=== PATIENT | male | born 1930 | race Asian ===

== ENCOUNTER 2020-09-10 14:28 | Inpatient (IN) | payer MEDICARE, MEDICAID ==
[2020-09-10] VITALS (20 sets, daily range): BP systolic 67–168; BP diastolic 40–86
[~2020-09-10] VITALS: Ht 172.7 cm; Wt 76.0 kg
--- NOTE | 2020-09-10 14:30 | NUR ---
ED Nurse Note: Pt BIBA RA61 from [facility] due to SOB and desaturation. Per EMS, pt was desatting 78% RA, placed on NRB 15L, O2 went up to 92%. Noted with labored breathing. AAOx1, non verbal but is responsive to painful stimuli. Pt is warm to touch. Isolation precaution observed. Pt placed on panel monitor. ERMD at bedside.
--- NOTE | 2020-09-10 14:32 | NUR ---
ED Nurse Note: IV line established. Blood and Covid swab collected, sent to lab.
--- NOTE | 2020-09-10 14:35 | NUR ---
ED Nurse Note: FC 16fr inserted as ordered, patent and draining well.
--- NOTE | 2020-09-10 14:42 | NUR ---
ED Nurse Note: Etomidate 20mg IVP and Rocuronium 100mg IV given per ERMD. BP 92/45 HR 60 RR 33 O2 89% 1443: intubation time Vent setting: Rate:14, TV 500, FiO2 100%, PEEP 5
--- NOTE | 2020-09-10 14:43 | NUR ---
RESPIRATORY NOTE: PT DESMOND IN DUE TO RESPIRATORY DISTRESS. PT WAS INTUBATED AT THIS TIME WITH NO COMPLICATIONS. ETT #7.5 @ 24CM LIPLINE. VENT SETTINGS: AC/VC 14,500,100%,+5. ALARMS ARE ON AND AUDIBLE. PT IS TOLERATING VENT SETTINGS WELL. WILL CONTINUE TO CLOSELY MONITOR. ABG TO FOLLOW.
[2020-09-10] MEDS ORDERED: Levophed 4mg/4mL Inj IV ONE ×2 (14:44→15:04)
[2020-09-10] MEDS ORDERED: Acetaminophen 650 MG SUPP RECTAL ONE ×2 (14:45→14:54)
[2020-09-10] MEDS ORDERED: Piperacillin/Tazobactam 3.375 GM in NS 110 ML IV ONE (14:45)
[2020-09-10] MEDS ORDERED: dexAMETHasone 10mg/ml Inj IV ONE (14:45)
[2020-09-10] MEDS ORDERED: Etomidate 40mg/20ml Inj IV ONE ×2 (14:45→21:51)
[2020-09-10] MEDS ORDERED: Vancomycin 1 GM in NS 275 ML IVPB ONE (14:45)
[2020-09-10 14:54] LABS: BASOPHILS % (AUTO) 1.7 % (0.0-2.0); EOSINOPHILS % (AUTO) 0.6 % (0.0-3.0); HEMATOCRIT 41.8 % (42.0-52.0); HEMOGLOBIN 13.5 G/DL (14.2-18.0); LYMPHOCYTES % (AUTO) 17.3 % (20.0-45.0); MEAN CORPUSCULAR VOLUME 89 FL (80-99); NEUTROPHILS % (AUTO) 72.4 % (45.0-75.0); PLATELET COUNT 214 K/UL (150-450); RED BLOOD COUNT 4.69 M/UL (4.70-6.10); RED CELL DISTRIBUTION WIDTH 13.7 % (11.6-14.8); WHITE BLOOD COUNT 10.8 K/UL (4.8-10.8)
[2020-09-10 15:00] LABS: INR 1.1 (0.9-1.1)
--- NOTE | 2020-09-10 15:00 | NUR ---
ED Nurse Note: Levophed 8mcg/min started as ordered.
[2020-09-10 15:12] LABS: CREATININE 1.4 MG/DL (0.55-1.30); POTASSIUM 4.6 MMOL/L (3.5-5.1)
--- NOTE | 2020-09-10 15:15 | Emergency Room Report ---
History of Present Illness General Chief Complaint: Dyspnea/Respdistress Source: EMS Present Illness HPI Disclaimer: Please note that this report is being documented using DRAGON technology. This can lead to erroneous entry secondary to incorrect interpretation by the dictating instrument. HPI: 89-year-old male reported history of COPD, hypertension, heart failure status post pacemaker presents for evaluation of hypotension and respiratory distress. Found hypoxic nursing facility saturating in the 80s only improved to low 90s on nonrebreather. EMS noted blood pressures systolics in the high 80s. Patient is not responsive. Report this is not his typical mentation. No other information available from EMS. Cannot obtain any information from patient at this time due to clinical condition. PMH: COPD, asthma, hypertension, heart failure PSH: Pacemaker Allergies: Amiodarone, levofloxacin, penicillins listed in medical chart Social Hx: Unable to obtain Allergies: Coded Allergies: AMIODARONE (Verified Allergy, Unknown, 09/10/20) LEVOFLOXACIN (Verified Allergy, Unknown, 09/10/20) PENICILLINS (Verified Allergy, Unknown, 09/10/20) COVID-19 Screening Contact w/high risk pt: No Experienced COVID-19 symptoms?: Yes COVID-19 Testing performed FIREARMS INSPECTOR: Yes - no documentation COVID-19 Screening: PUI COVID-19 COVID-19 Testing Source: unknown Nursing Documentation-PMH Hx Cardiac Problems: Yes - sepsis, pneumonia, UTI, a-fib,hypothyroidism, CHF Hx Hypertension: Yes Hx Pacemaker: Yes - 2'tachy vaughn syndrome Hx Asthma: Yes Hx COPD: Yes Review of Systems All Other Systems: limited - Unable to obtain from patient due to clinical condition Physical Exam Vital Signs Date Time Temp Pulse Resp B/P (MAP) Pulse Ox O2 Delivery O2 Flow Rate FiO2 09/10/20 14:28 60 28 85/45 (58) 92 Non-Rebreather 15.0 General: No verbal response, arrives on nonrebreather HEENT: NC/AT. EOMI. edentulous Cardiovascular: RRR. S1 and S2 normal. No murmur appreciated Resp: Tachypneic and shallow breathing, agonal breaths, 15 L nonrebreather 92% Abdomen: Abdomen is soft, nondistended. Nontender Skin: Intact. No abrasions, laceration or rash over the exposed skin MSK: Normal tone and bulk. Moving all extremities. No obvious deformity. Neuro: Obtunded, no verbal response Procedures Intubation Intubation : Consent: Emergent Intubation Method: orotracheal Tube Size (cm): 7.5 Medications: Etomidate, Rocuronium Breath Sounds after Intubation: equal Intubation Complications: no complications Post Intubation Xray: Yes Attempts: One Patient Tolerated: Well Complications: None Medical Decision Making Diagnostic Impression: Primary Impression: Respiratory failure Additional Impressions: UTI (urinary tract infection) Elevated troponin Elevated d-dimer Pneumonia ER Course 89-year-old male presents in respiratory distress hypotension from snf facility. He is full code according to bolus provided by EMS. Patient was borderline hypotensive and concern for impending respiratory failure the patient was intubated shortly after arrival. Saturations improved. Patient started on Levophed drip. Full sepsis labs ordered as well as 30 cc/kg bolus, broad-spectrum antibiotics. Patient felt warm to the touch and Tylenol was given. Blood culture sent. He will require admission to the ICU. Accepted by Dr. Desai who is the assigned hospitalist for [facility]. Sepsis reevaluation: 1430 I, Dr. Darryl Song, reevaluated the patient MAP: 50 Heart rate: 60 Respiratory rate: 30s Initial Lactate: Pending Repeat Lactate: Pending Pressors: Peripheral levophed No signs of fluid overload Sepsis reevaluation: 1540 I, Dr. Darryl Song, reevaluated the patient Capillary refill: Less than 2 seconds MAP: 102 Heart rate: 60 Respiratory rate: 20, intubated Initial Lactate: 1.9 Repeat Lactate: [] Pressors: Discontinued No signs of fluid overload Laboratory Tests Test 09/10/20 14:32 09/10/20 15:10 White Blood Count 10.8 K/UL (4.8-10.8) Red Blood Count 4.69 M/UL (4.70-6.10) L Hemoglobin 13.5 G/DL (14.2-18.0) L Hematocrit 41.8 % (42.0-52.0) L Mean Corpuscular Volume 89 FL (80-99) Mean Corpuscular Hemoglobin 28.8 PG (27.0-31.0) Mean Corpuscular Hemoglobin Concent 32.2 G/DL (32.0-36.0) Red Cell Distribution Width 13.7 % (11.6-14.8) Platelet Count 214 K/UL (150-450) Mean Platelet Volume 5.8 FL (6.5-10.1) L Neutrophils (%) (Auto) 72.4 % (45.0-75.0) Lymphocytes (%) (Auto) 17.3 % (20.0-45.0) L Monocytes (%) (Auto) 8.0 % (1.0-10.0) Eosinophils (%) (Auto) 0.6 % (0.0-3.0) Basophils (%) (Auto) 1.7 % (0.0-2.0) Prothrombin Time 12.0 SEC (9.30-11.50) H Prothrombin Time INR 1.1 (0.9-1.1) Activated Partial Thromboplast Time 28 SEC (23-33) D-Dimer 4.12 mg/L FEU (0.00-0.49) H Sodium Level 146 MMOL/L (136-145) H Potassium Level 4.6 MMOL/L (3.5-5.1) Chloride Level 109 MMOL/L (98-107) H Carbon Dioxide Level 34 MMOL/L (21-32) H Anion Gap 3 mmol/L (5-15) L Blood Urea Nitrogen 36 mg/dL (7-18) H Creatinine 1.4 MG/DL (0.55-1.30) H Estimated Glomerular Filtration Rate 47.9 mL/min (>60) Glucose Level 235 MG/DL (74-106) H Lactic Acid Level 1.90 mmol/L (0.4-2.0) Calcium Level 8.0 MG/DL (8.5-10.1) L Phosphorus Level 4.8 MG/DL (2.5-4.9) Magnesium Level 2.5 MG/DL (1.8-2.4) H Ferritin 95 NG/ML (8-388) Total Bilirubin 0.3 MG/DL (0.2-1.0) Aspartate Amino Transferase (AST) 27 U/L (15-37) Alanine Aminotransferase (ALT) 7 U/L (12-78) L Alkaline Phosphatase 74 U/L (46-116) Lactate Dehydrogenase 233 U/L (81-234) Total Creatine Kinase 1477 U/L (26-308) H Creatine Kinase MB 2.2 NG/ML (0.0-3.6) Creatine Kinase MB Relative Index 0.1 Troponin I 0.057 ng/mL (0.000-0.056) C-Reactive Protein, Quantitative 1.3 mg/dL (0.00-0.90) H Pro-B-Type Natriuretic Peptide 2107 pg/mL (0-125) H Total Protein 7.0 G/DL (6.4-8.2) Albumin 2.5 G/DL (3.4-5.0) L Globulin 4.5 g/dL Albumin/Globulin Ratio 0.6 (1.0-2.7) L Lipase 258 U/L (73-393) Urine Color Yellow Urine Appearance Slightly cloudy Urine pH 7 (4.5-8.0) Urine Specific [place] 1.010 (1.005-1.035) Urine Protein Negative (NEGATIVE) Urine Glucose (UA) Negative (NEGATIVE) Urine Ketones Negative (NEGATIVE) Urine Blood 4+ (NEGATIVE) H Urine Nitrite Positive (NEGATIVE) H Urine Bilirubin Negative (NEGATIVE) Urine Urobilinogen Normal MG/DL (0.0-1.0) Urine Leukocyte Esterase 3+ (NEGATIVE) H Urine RBC Tntc /HPF (0 - 0) H Urine WBC 30-40 /HPF (0 - 0) H Urine Squamous Epithelial Cells Few /LPF (NONE/OCC) Urine Bacteria Few /HPF (NONE) Arterial Blood pH 7.368 (7.350-7.450) Arterial Blood Partial Pressure CO2 49.2 mmHg (35.0-45.0) H Arterial Blood Partial Pressure O2 448.6 mmHg (75.0-100.0) H Arterial Blood HCO3 27.7 mmol/L (22.0-26.0) H Arterial Blood Oxygen Saturation 99.4 % (95-100) Arterial Blood Base Excess 1.7 (-2-2) Galileo Test Positive Microbiology Date/Time Source Procedure Growth Status 09/10/20 14:32 Nasopharynx SARS-CoV-2 RdRp Gene Assay - Final Complete EKG Diagnostic Results Troponin ordered: Yes When was troponin ordered?: Sep 10, 2020 Rate: normal Other Impression Indeterminate rhythm, prolonged OK interval 298 ms, widened QTC, no obvious ST segment changes Rhythm Strip Diag. Results Rhythm Strip Time: 14:59 EP Interpretation: yes Rate: 70s Rhythm: no PVC's, no ectopy Chest X-Ray Diagnostic Results Chest X-Ray Diagnostic Results : Chest X-Ray Ordered: Yes # of Views/Limited/Complete: 1 View Indication: Shortness of Breath Interpretation: other - Endotracheal tube satisfactory position above the gorge. Possible left lower lobe infiltrate Impression: Other - Appropriate intubation, possible infiltrate left lower lobe Electronically Signed by: Electronically signed by Dr. Darryl Song Last Vital Signs Date Time Temp Pulse Resp B/P (MAP) Pulse Ox O2 Delivery O2 Flow Rate FiO2 09/10/20 15:05 163/78 09/10/20 14:28 60 28 92 Non-Rebreather 15.0 Disposition: ADMITTED INPATIENT Condition: Critical Referrals: NON PHYSICIAN (PCP) Darryl Song MD Sep 10, 2020 15:15
--- NOTE | 2020-09-10 15:15 | NUR ---
ED Nurse Note: BP 168/79, MD aware. Levophed titrated to 4mcg/min as ordered.
--- NOTE | 2020-09-10 15:20 | NUR ---
ED Nurse Note: BP 179/76, MD aware. Levophed 4mcg/ min dc as ordered.
--- NOTE | 2020-09-10 15:22 | NUR ---
ED Nurse Note: Levophed 212.5ml discarded. Witnessed by charge nurse.
[2020-09-10 15:30] LABS: ALBUMIN 2.5 G/DL (3.4-5.0); ALBUMIN/GLOBULIN RATIO 0.6 (1.0-2.7); BILIRUBIN,TOTAL 0.3 MG/DL (0.2-1.0); CKMB 2.2 NG/ML (0.0-3.6); PHOSPHORUS 4.8 MG/DL (2.5-4.9)
[2020-09-10] MEDS ORDERED: Cefepime HCl 1 GM in D5W 55 ML IVPB ONE (15:30)
[2020-09-10 15:37] LABS: APPEARANCE,URINE SLIGHTLY CLOUDY; BILIRUBIN, URINE NEGATIVE (NEGATIVE); GLUCOSE, URINE (UA) NEGATIVE (NEGATIVE); KETONES,URINE NEGATIVE (NEGATIVE); LEUKOCYTE ESTERASE ,URINE 3+ (NEGATIVE); NITRITE,URINE POSITIVE (NEGATIVE); PH,URINE 7 (4.5-8.0); PROTEIN,URINE NEGATIVE (NEGATIVE); UROBILINOGEN,URINE NORMAL MG/DL (0.0-1.0)
[2020-09-10 15:42] LABS: COLOR,URINE YELLOW
--- NOTE | 2020-09-10 17:03 | NUR ---
ED Nurse Note: Skin assessment initiated, noted with hematoma on left forearm, hematoma and closed wound with dry scab on right forearm.
[2020-09-10] MEDS ORDERED: Vancomycin 500mg/D5W 100ml IVPB SCH ×2 (18:00)
--- NOTE | 2020-09-10 18:35 | NUR ---
ED Nurse Note: Report given to Daylin charge nurse
--- NOTE | 2020-09-10 19:55 | NUR ---
ED Nurse Note: Report given to Estrella OSHEA
[2020-09-10] MEDS ORDERED: FLOMAX0.4 MG ORAL (20:02)
[2020-09-10] MEDS ORDERED: METOPROLOL SUCC25 MG ORAL (20:02)
[2020-09-10] MEDS ORDERED: DOCUSIL100 M1 ORAL (20:02)
[2020-09-10] MEDS ORDERED: VITAMIN B122500 MCG PO (20:02)
[2020-09-10] MEDS ORDERED: LIPOIC ACID1 GM MC (20:02)
[2020-09-10] MEDS ORDERED: FLECAINIDE ACE100 MG ORAL (20:02)
[2020-09-10] MEDS ORDERED: CATAPRES0.1 MG ORAL (20:02)
[2020-09-10] MEDS ORDERED: SINGULAIR10 MG ORAL (20:02)
[2020-09-10] MEDS ORDERED: NAMENDA5 MG ORAL (20:02)
[2020-09-10] MEDS ORDERED: SYNTHROID88 MCG ORAL (20:02)
[2020-09-10] MEDS ORDERED: ELIQUIS5 MG ORAL (20:02)
[2020-09-10] MEDS ORDERED: BUMETANIDE0.5 MG ORAL (20:02)
--- NOTE | 2020-09-10 20:10 | NUR ---
TRANSFER TO FLOOR: Patient transferred to ICU. Report given to Estrella OSHEA. Pt AAOx1, on mech vent tolerating well. Pt is on / NS 1L @100ml/hr. IV line on right AC 20g and left hand 22g patent and intact. Skin issues documented. Swabs are sent. Pt does not have any belongings.
--- NOTE | 2020-09-10 20:20 | NUR ---
NURSE NOTES: Received patient from ER via gurney accompanied by CUSTOMER QUALITY SPECIALIST and data collection technician. patient orally intubated fi02 50% satting 100%.patient admitted under the care of Dr. Desai with admitting diagnosis of Respiratory failure. Patient unable to responds and follow command. body assessment done patient with bilateral arms hematoma with closed blood blister and bilateral heel DTI. edema on bilateral lower extremities +1 elevated with pillow. Howe draining. initial wound care provided. IV line intact no s/s of infiltration infusing 1/2 ns at 100CC/hr. Covid-19 negative. standard precaution maintained and observed. Temp 97.3 axillary, placed frances hugger. will recheck Temp and BP sbp 70's. bilateral leg with +1 pitting edema.bed alarm on. bed locked and in low position. will continue plan of care. Dr. Desai placed an order.
--- NOTE | 2020-09-10 20:33 | NUR ---
NURSE NOTES: Called Dr. Desai and left message regrading pt blood pressure on the 70's HR 105, right now BP 85/53 HR 106, Temp 97.2 resp 14 Levophed was D/C in the ER. will follow up.
[2020-09-10] MEDS ORDERED: Enoxaparin 100mg Inj SUBQ SCH (21:00)
--- NOTE | 2020-09-10 21:27 | NUR ---
NURSE NOTES: Called Dr. Desai regarding patient Low BP. will follow up.
--- NOTE | 2020-09-10 21:30 | NUR ---
NURSE NOTES: Called patient daughter Lisa Heller and left message regarding patient admitted in ICU.
--- NOTE | 2020-09-10 21:34 | NUR ---
NURSE NOTES: Dr. Desia called back and gave orders noted and carried out.
--- NOTE | 2020-09-10 21:40 | NUR ---
NURSE NOTES: NS 500cc bolus x1 given will rechecked BP
[2020-09-10] MEDS ORDERED: Rocuronium Bromide 50mg/5ml Inj IV ONE (21:51)
[2020-09-10] MEDS: Heparin 5000 units/ml inj SUBQ SCH ×2 (22:00→22:15)
--- NOTE | 2020-09-10 22:00 | NUR ---
NURSE NOTES: Rechecked BP 120/89 HR 107 A-paced. no s/s of acute distress noted. frequent visual checks continued. will continue plan of care.
[2020-09-11] VITALS (31 sets, daily range): BP systolic 99–130; BP diastolic 47–83
--- NOTE | 2020-09-11 | NUR ---
NURSE NOTES: Patient BP 142/70 HR 79. Full code. no s/s of acute distress noted. no fever. no diarrhea. no/v. turned and repositioned patient in bed.
--- NOTE | 2020-09-11 02:00 | NUR ---
NURSE NOTES: patient in bed with eyes open, unable to follow direction. Temp 96.0 axillary with frances hugger will recheck Temp. turned and repositioned in bed. no s/s of hypo/hyperglycemia, no n/v. no diarrhea. frequent visual checks continued.
[2020-09-11] MEDS: Cefepime HCl 1 GM in D5W 55 ML IVPB SCH ×2 (03:47→17:48)
--- NOTE | 2020-09-11 04:00 | NUR ---
NURSE NOTES: Bed bath given. BP 107/46 HR 60. bilateral legs elevated.no s/s of acute distress noted. will continue plan of care.
[2020-09-11 05:10] LABS: BASOPHILS % (AUTO) 3.6 % (0.0-2.0); HEMOGLOBIN 12.9 G/DL (14.2-18.0); MEAN CORPUSCULAR VOLUME 88 FL (80-99); MONOCYTES % (AUTO) 5.4 % (1.0-10.0); PLATELET COUNT 143 K/UL (150-450); RED BLOOD COUNT 4.44 M/UL (4.70-6.10); RED CELL DISTRIBUTION WIDTH 13.6 % (11.6-14.8); WHITE BLOOD COUNT 15.6 K/UL (4.8-10.8)
[2020-09-11 05:45] LABS: ALANINE AMINOTRANSFERASE 6 U/L (12-78); ALBUMIN/GLOBULIN RATIO 0.6 (1.0-2.7); ALKALINE PHOSPHATASE 59 U/L (46-116); ASPARTATE AMINO TRANSFERASE 22 U/L (15-37); BILIRUBIN,TOTAL 0.5 MG/DL (0.2-1.0); BLOOD UREA NITROGEN 28 mg/dL (7-18); CALCIUM 7.2 MG/DL (8.5-10.1); CHLORIDE 112 MMOL/L (98-107); SODIUM 143 MMOL/L (136-145)
[2020-09-11] MEDS: Heparin 5000 units/ml inj SUBQ SCH ×3 (05:47→21:42)
[2020-09-11 05:51] LABS: CARBON DIOXIDE 23 MMOL/L (21-32)
--- NOTE | 2020-09-11 06:00 | NUR ---
NURSE NOTES: patient orally intubated fi02 50% satting 100%. Patient unable to responds and follow command. body assessment done patient with bilateral arms hematoma with closed blood blister and bilateral heel DTI. edema on bilateral lower extremities +1 elevated with pillow. Howe draining. OGt intact. IV line intact no s/s of infiltration infusing 1/2 ns at 100CC/hr. Covid-19 negative. standard precaution maintained and observed. Temp 97.3 axillary, placed frances hugger. will recheck Temp and BP sbp 70's. bilateral leg with +1 pitting edema.bed alarm on. bed locked and in low position. will continue plan of care.
[2020-09-11] MEDS: Vancomycin 1.25gm/NS Premix q24h IVPB SCH (06:26)
--- NOTE | 2020-09-11 07:20 | NUR ---
HAND-OFF: Report given to Abeba OSHEA.Endorsed patient to inform MD that patient with hematuria and OGT dark brown residual of 10cc. held Heparin. BP 111/52.
--- NOTE | 2020-09-11 07:33 | NUR ---
NURSE NOTES: LATE ENTRY: RECEIVED REPORT FROM DAYO PEREZ. PT IN BED. OBTUNDED. OPENS EYES TO PAIN. PT INTUBATED 7.5, 24CM VENT AC 14, VT 500, 40%, PEEP 5. HOB>30. LUNG SOUNDS DIMINISHED. ORAL CARE PROVIDED. PT NPO. OGT. ABDOMEN DISTENDED, ROUND, LARGE. BOWEL SOUNDS HYPOACTIVE. NO BM. BILATERAL RADIAL PULSES WEAK. PITTING EDEMA UPPER EXTREMITIES. SKIN BLISTERS NOTED. 1/2 NS AT 100ML/HR. IV ACCESS LT AC 20G AND RT WRIST 22G. CALL LIGHT IN REACH, BED ALARM ON. SIDE RAILS X2. WILL CONTINUE TO MONITOR PT.
--- NOTE | 2020-09-11 09:00 | NUR ---
NURSE NOTES: LATE ENTRY: MD HAMMONDS HERE TO SEE PT. INFORMED OF LABS WBC 15.6, GLUCOSE 252, TROPONIN 0.055, LACTIC ACID 3. BLOOD BLISTERS ON EXTREMITIES. CALLED AND SPOKE WITH DAUGHTER CESAR. WILL GIVE CONSENT FOR PIC LINE. WILL PLACE ADDITIONAL ORDER.
[2020-09-11] MEDS ORDERED: Lidocaine 1% Plain 30 ml INJ PRN (09:45)
[2020-09-11] MEDS ORDERED: Heparin1,000 units/500ml Premix(Conc:2 units/ml) IV PRN (09:45)
--- NOTE | 2020-09-11 10:30 | History and Physical Report ---
DATE OF ADMISSION: 09/10/2020 CHIEF COMPLAINT: Respiratory failure, sepsis and shock. HISTORY OF PRESENT ILLNESS: The patient is an 89-year-old male currently residing at a alf facility. He has prior history of multiple medical problems including aspiration pneumonia, pacemaker, asthma, COPD, atherosclerotic cardiovascular disease. He was transferred from a alf facility after he was hypoxic at the alf facility. On evaluation in the emergency room, he was hypotensive and in respiratory failure. He was intubated, briefly required Levophed but is now off pressors, admitted to intensive care unit. He is poorly responsive. Laboratory workup in the ER did reveal left lower lobe infiltrate. PAST MEDICAL HISTORY: As above, degenerative disk disease, spinal stenosis, history of pancreatitis, history of cholangitis, peptic ulcer disease, Parkinson's, atrial fibrillation. CURRENT MEDICATIONS: Reconciled and reviewed. ALLERGIES: Include amiodarone, levofloxacin, and penicillin. FAMILY HISTORY: Noncontributory. SOCIAL HISTORY: There is no known history of tobacco, ethanol, or drugs. REVIEW OF SYSTEMS: Unobtainable as patient is confused. PHYSICAL EXAMINATION: VITAL SIGNS: Temperature 97, pulse 83, respirations 14, blood pressure 107/53. GENERAL: The patient is chronically ill-appearing male, in no apparent distress. He is poorly responsive. Currently orally intubated. HEENT: Head is normocephalic and atraumatic. Oropharynx is orally intubated. NECK: Supple. HEART: Regular rate and rhythm. LUNGS: Clear anteriorly. ABDOMEN: Soft, nontender, nondistended. EXTREMITIES: Without clubbing or cyanosis. The patient has multiple ecchymoses on the upper extremities. LABORATORY DATA: White count 11, hemoglobin 13, platelet count of 214. Sodium 143, potassium 4, chloride 112, bicarb 23, BUN 28, creatinine is 1. UA showed 30 to 40 wbc's. ASSESSMENT: This is an 89-year-old male with multiple medical problems including history of aspiration pneumonia, urinary tract infection, pacemaker, , atrial fibrillation, asthma, admitted with complaints of sepsis, respiratory failure secondary to pneumonia, and UTI. PLAN: 1. Continue vent support. 2. Intravenous hydration. 3. Pressors as needed. 4. DVT and stress ulcer prophylaxis. 5. Broad-spectrum IV antibiotics. 6. Followup pending cultures. 7. The patient's status is currently critical and guarded. Paulino Reyes M.D. DR: Marquita JOB#: [id number] CC:
[2020-09-11] MEDS: Levodopa/Carbidopa 25/100 tab ORAL SCH ×3 (13:00→17:47)
--- NOTE | 2020-09-11 13:35 | NUR ---
NURSE NOTES: LATE ENTRY: MARTELL BORDEN, BLOOD CULTURES 2/4, + COCCI IN CLUSTERS.
--- NOTE | 2020-09-11 14:34 | Consultation ---
Consult Note Consult Note 89-year-old male presents from the group home facility. Patient noted be significantly hypoxic at the group home facility. On evaluation in the emergency room, he was hypotensive and in respiratory failure requiring intubation. Patient admitted to intensive care unit. He is poorly responsive and comatose. + pneumonia on CXR ICU care reviewed PAST MEDICAL HISTORY: aspiration pneumonia, pacemaker, asthma, COPD, atherosclerotic cardiovascular disease degenerative disk disease, spinal stenosis, history of pancreatitis, history of cholangitis, peptic ulcer disease, Parkinson's, atrial fibrillation. CURRENT MEDICATIONS: Reconciled and reviewed. ALLERGIES: reviewed FAMILY HISTORY: Noncontributory. SOCIAL HISTORY: There is no known history of tobacco, ethanol, or drugs. long term patient REVIEW OF SYSTEMS: Unobtainable PHYSICAL EXAMINATION: VITAL SIGNS: 115/52, 60, 14, sats 100% on 40% FiO2, currently afebrile GENERAL: chronically ill-appearing male, obtunded and orally intubated. HEENT: Head is normocephalic and atraumatic. orally intubated. NECK: Supple. HEART: Regular rate and rhythm. without MRG LUNGS: Clear anteriorly. no rhonchi or wheeze ABDOMEN: Soft, nontender, nondistended. EXTREMITIES: Without clubbing or cyanosis. bruising NEURO poorly responsive LABORATORY DATA: Labs Test 09/10/20 07:43 09/10/20 14:32 09/10/20 15:10 09/11/20 03:56 Arterial Blood pH 7.431 (7.350-7.450) 7.368 (7.350-7.450) Arterial Blood Partial Pressure CO2 35.6 mmHg (35.0-45.0) 49.2 mmHg (35.0-45.0) Arterial Blood Partial Pressure O2 257.9 mmHg (75.0-100.0) 448.6 mmHg (75.0-100.0) Arterial Blood HCO3 23.2 mmol/L (22.0-26.0) 27.7 mmol/L (22.0-26.0) Arterial Blood Oxygen Saturation 99.2 % (95-100) 99.4 % (95-100) Arterial Blood Base Excess -0.7 (-2-2) 1.7 (-2-2) Galileo Test Positive Positive White Blood Count 10.8 K/UL (4.8-10.8) 15.6 K/UL (4.8-10.8) Red Blood Count 4.69 M/UL (4.70-6.10) 4.44 M/UL (4.70-6.10) Hemoglobin 13.5 G/DL (14.2-18.0) 12.9 G/DL (14.2-18.0) Hematocrit 41.8 % (42.0-52.0) 39.0 % (42.0-52.0) Mean Corpuscular Volume 89 FL (80-99) 88 FL (80-99) Mean Corpuscular Hemoglobin 28.8 PG (27.0-31.0) 29.0 PG (27.0-31.0) Mean Corpuscular Hemoglobin Concent 32.2 G/DL (32.0-36.0) 33.0 G/DL (32.0-36.0) Red Cell Distribution Width 13.7 % (11.6-14.8) 13.6 % (11.6-14.8) Platelet Count 214 K/UL (150-450) 143 K/UL (150-450) Mean Platelet Volume 5.8 FL (6.5-10.1) 6.5 FL (6.5-10.1) Neutrophils (%) (Auto) 72.4 % (45.0-75.0) 84.0 % (45.0-75.0) Lymphocytes (%) (Auto) 17.3 % (20.0-45.0) 7.0 % (20.0-45.0) Monocytes (%) (Auto) 8.0 % (1.0-10.0) 5.4 % (1.0-10.0) Eosinophils (%) (Auto) 0.6 % (0.0-3.0) 0.0 % (0.0-3.0) Basophils (%) (Auto) 1.7 % (0.0-2.0) 3.6 % (0.0-2.0) Prothrombin Time 12.0 SEC (9.30-11.50) Prothromb Time International Ratio 1.1 (0.9-1.1) Activated Partial Thromboplast Time 28 SEC (23-33) D-Dimer 4.12 mg/L FEU (0.00-0.49) Sodium Level 146 MMOL/L (136-145) 143 MMOL/L (136-145) Potassium Level 4.6 MMOL/L (3.5-5.1) 4.0 MMOL/L (3.5-5.1) Chloride Level 109 MMOL/L (98-107) 112 MMOL/L (98-107) Carbon Dioxide Level 34 MMOL/L (21-32) 23 MMOL/L (21-32) Anion Gap 3 mmol/L (5-15) Blood Urea Nitrogen 36 mg/dL (7-18) 28 mg/dL (7-18) Creatinine 1.4 MG/DL (0.55-1.30) 1.0 MG/DL (0.55-1.30) Estimat Glomerular Filtration Rate 47.9 mL/min (>60) > 60 mL/min (>60) Glucose Level 235 MG/DL (74-106) 252 MG/DL (74-106) Lactic Acid Level 1.90 mmol/L (0.4-2.0) 2.30 mmol/L (0.4-2.0) Calcium Level 8.0 MG/DL (8.5-10.1) 7.2 MG/DL (8.5-10.1) Phosphorus Level 4.8 MG/DL (2.5-4.9) Magnesium Level 2.5 MG/DL (1.8-2.4) 2.1 MG/DL (1.8-2.4) Ferritin 95 NG/ML (8-388) Total Bilirubin 0.3 MG/DL (0.2-1.0) 0.5 MG/DL (0.2-1.0) Aspartate Amino Transf (AST/SGOT) 27 U/L (15-37) 22 U/L (15-37) Alanine Aminotransferase (ALT/SGPT) 7 U/L (12-78) 6 U/L (12-78) Alkaline Phosphatase 74 U/L (46-116) 59 U/L (46-116) Lactate Dehydrogenase 233 U/L (81-234) Total Creatine Kinase 1477 U/L (26-308) Creatine Kinase MB 2.2 NG/ML (0.0-3.6) Creatine Kinase MB Relative Index 0.1 Troponin I 0.057 ng/mL (0.000-0.056) 0.055 ng/mL (0.000-0.056) C-Reactive Protein, Quantitative 1.3 mg/dL (0.00-0.90) Pro-B-Type Natriuretic Peptide 2107 pg/mL (0-125) Total Protein 7.0 G/DL (6.4-8.2) 5.5 G/DL (6.4-8.2) Albumin 2.5 G/DL (3.4-5.0) 2.0 G/DL (3.4-5.0) Globulin 4.5 g/dL 3.5 g/dL Albumin/Globulin Ratio 0.6 (1.0-2.7) 0.6 (1.0-2.7) Lipase 258 U/L (73-393) Urine Color Yellow Urine Appearance Slightly cloudy Urine pH 7 (4.5-8.0) Urine Specific [place] 1.010 (1.005-1.035) Urine Protein Negative (NEGATIVE) Urine Glucose (UA) Negative (NEGATIVE) Urine Ketones Negative (NEGATIVE) Urine Blood 4+ (NEGATIVE) Urine Nitrite Positive (NEGATIVE) Urine Bilirubin Negative (NEGATIVE) Urine Urobilinogen Normal MG/DL (0.0-1.0) Urine Leukocyte Esterase 3+ (NEGATIVE) Urine RBC Tntc /HPF (0 - 0) Urine WBC 30-40 /HPF (0 - 0) Urine Squamous Epithelial Cells Few /LPF (NONE/OCC) Urine Bacteria Few /HPF (NONE) Random Vancomycin Level 8.7 ug/mL Test 09/11/20 07:30 Lactic Acid Level 3.00 mmol/L (0.66-2.22) ASSESSMENT: Acute respiratory failure due to aspiration pneumonia, urinary tract infection, pacemaker,leukocytosis with possible sepsis , atrial fibrillation, asthma, UTI, severe PCM PLAN care noted IV antibiotics respiratory care Ventilatory support SNF meds supportive care suction DVT prophylaxis no wean oxygen therapy as needed prognosis guarded medications/laboratory data/nursing notes/ICU care reviewed in detail note reviewed and edited care discussed with RN and RT ICU time spent >90 minutes Kyle Mark MD Sep 11, 2020 14:34
--- NOTE | 2020-09-11 14:35 | NUR ---
NURSE NOTES: LATE ENTRY: MD LEE HERE TO SEE PT. WAS INFORMED NPO WITH OGT. NOTED DRIED BLOOD IN OGT AND BLOOD IN URINE AND VIGIL. MD WILL EXAM PT AND PLACE ORDERS.
[2020-09-11] MEDS: Montelukast 10mg tablet ORAL SCH (17:47)
--- NOTE | 2020-09-11 19:16 | NUR ---
Nurse Notes: Patient received from [facility]. patient asleep arousable to name but nonverbal with 7.5 ETT at 24 lipline on ventilator AC 14 TV 500 FiO2 40% PEEP 5. BP 122/57 HR 60 Apaced on monitor. right Forearm #20 and left wrist #22 running 1/2NS @100ml/hr with bilateral upper arm edema and ecchymosis noted. OGT clamped and patent. Howe catheter draining dark lisandra urine. bilateral heel DTPI and bilateral arm blisters noted. Patient repositioned and oral care provided.
[2020-09-11] MEDS: Dyna-Hex 2% Top Sol 2oz TOPIC SCH (20:10)
[2020-09-11] MEDS: Tamsulosin 0.4mg cap ORAL SCH (20:57)
--- NOTE | 2020-09-11 22:00 | NUR ---
Nurse Notes: patient asleep arousable to name but nonverbal with 7.5 ETT at 24 lipline on ventilator AC 14 TV 500 FiO2 40% PEEP 5. BP 122/51 HR 60 Apaced on monitor and afebrile. right Forearm #20 and left wrist #22 running 1/2NS @100ml/hr with bilateral upper arm edema and ecchymosis noted. OGT clamped and patent. Howe catheter draining dark lisandra urine. Dr. Barnett aware of oliguria and hematuria, no orders received at this time. Patient repositioned and oral care provided.
[2020-09-11] MEDS: Pantoprazole Inj IVP SCH (22:16)
--- NOTE | 2020-09-11 23:30 | Consultation ---
DATE OF CONSULTATION: 09/11/2020 GASTROENTEROLOGY CONSULTATION REPORT CONSULTING PHYSICIAN: Ceec Garrison MD CHIEF COMPLAINT: I was asked to see this patient by Dr. Paulino Reyes for mild anemia, possible gastrointestinal bleeding. HISTORY OF PRESENT ILLNESS: The patient is a debilitated 89-year-old man who was brought in from a nursing facility due to respiratory failure, sepsis, and shock. He has been admitted to the intensive care unit and is on a ventilator in isolation. The patient is unable to provide any history and most of the information is only available from the chart. The patient was found to have some reddish material from the urine and some from his orogastric tube and this consultation was generated. There was a very minimal drop in his hematocrit level. No melena has been reported. PAST MEDICAL HISTORY: History of degenerative disc disease, spinal stenosis, pancreatitis, cholangitis, peptic ulcer disease, Parkinson disease, atrial fibrillation. FAMILY HISTORY: Noncontributory. SOCIAL HISTORY: Patient has no chart reports of smoking or drinking. He is from a [facility]. ALLERGIES: Amiodarone, levofloxacin, penicillin. REVIEW OF SYSTEMS: Unobtainable. MEDICATIONS: See the chart list for details. PHYSICAL EXAMINATION: GENERAL: Debilitated elderly man, seen in the ICU. HEENT: Normocephalic and atraumatic. Patient was intubated with orogastric tube. NECK: Supple. CHEST: Reveals coarse breath sounds and scattered rhonchi. CARDIOVASCULAR: Revealed a regular rate. ABDOMEN: Soft. EXTREMITIES: Revealed no edema. LABORATORY DATA: Noted. ASSESSMENT: This patient presents with a minimal degree of anemia and some scant streaks of red material seen in the orogastric tube and the Howe catheter. The observations are somewhat minimal and not clinically significant. In addition, the patient shows no gross evidence of bleeding such as melena or significant drop in hematocrit. Given his overall health, age, and status, I would manage the patient conservatively. His H2 dina can be changed to a proton pump inhibitor and his tube feedings can be resumed. His blood count will be monitored closely and if there is a clinical evidence of significant bleeding, then endoscopy can be considered. RECOMMENDATIONS: Per above discussion and per orders written in the chart. Thank you for asking me to participate in the care of this patient. Cece Garrison M.D. DR: GRAEME JOB#: [id number] CC: ANTONIA
[2020-09-12] VITALS (24 sets, daily range): BP systolic 95–159; BP diastolic 17–84
--- NOTE | 2020-09-12 | NUR ---
Nurse Notes: patient asleep arousable to name, makes eye contact but nonverbal with 7.5 ETT at 24 lipline on ventilator AC 14 TV 500 FiO2 40% PEEP 5. BP 122/56 HR 74 Apaced on monitor temp 99.0F axillary. right Forearm #20 and left wrist #22 running 1/2NS @100ml/hr with bilateral upper arm edema and ecchymosis noted. OGT clamped and patent. Howe catheter draining dark lisandra urine. Patient repositioned and oral care provided.
--- NOTE | 2020-09-12 01:36 | Cardiology Progress Note ---
Subjective DATE OF SERVICE: Sep 11, 2020 Off pressors now; still on IVF support BP parameters more stable. Monitor: Paced rhythm Objective Last 24 Hour Vital Signs Date Time Temp Pulse Resp B/P (MAP) Pulse Ox O2 Delivery O2 Flow Rate FiO2 09/12/20 01:00 60 14 126/55 (78) 100 09/12/20 00:00 99.0 74 14 122/56 (78) 100 09/12/20 00:00 71 09/12/20 00:00 Mechanical Ventilator 09/11/20 23:07 60 17 40 09/11/20 23:00 61 14 107/53 (71) 100 09/11/20 22:00 60 14 122/51 (74) 100 09/11/20 21:00 60 16 103/65 (78) 100 09/11/20 20:53 40 09/11/20 20:00 97.9 63 15 121/55 (77) 99 09/11/20 20:00 60 09/11/20 20:00 Mechanical Ventilator 09/11/20 19:41 71 15 40 09/11/20 19:00 60 17 122/57 (78) 99 09/11/20 18:00 99 15 116/71 (86) 98 09/11/20 17:00 105 17 114/62 (79) 99 09/11/20 16:00 Mechanical Ventilator 09/11/20 16:00 98.8 60 14 129/56 (80) 100 09/11/20 16:00 60 09/11/20 15:18 60 14 40 09/11/20 15:00 60 14 124/57 (79) 100 09/11/20 14:00 70 14 130/57 (81) 100 09/11/20 13:30 60 14 108/52 (70) 100 09/11/20 13:00 60 14 117/56 (76) 100 09/11/20 12:30 60 14 121/54 (76) 100 09/11/20 12:00 Mechanical Ventilator 09/11/20 12:00 60 09/11/20 12:00 98.1 60 14 111/53 (72) 100 09/11/20 11:30 59 14 120/53 (75) 100 09/11/20 11:00 60 14 105/50 (68) 100 09/11/20 11:00 60 14 40 09/11/20 10:00 60 14 115/52 (73) 100 09/11/20 09:30 60 14 110/53 (72) 100 09/11/20 09:00 60 14 99/47 (64) 100 09/11/20 08:30 60 14 109/47 (67) 100 09/11/20 08:00 60 14 109/50 (69) 100 09/11/20 08:00 60 09/11/20 08:00 Mechanical Ventilator 09/11/20 07:30 60 14 108/49 (68) 99 09/11/20 07:14 65 14 40 09/11/20 07:00 100.4 60 14 111/52 (71) 99 09/11/20 06:30 60 18 09/11/20 06:00 60 16 107/53 (71) 97 09/11/20 05:00 60 14 103/50 (67) 96 09/11/20 04:00 Mechanical Ventilator 09/11/20 04:00 97.7 83 14 107/64 (78) 98 09/11/20 04:00 60 09/11/20 03:00 60 15 108/57 (74) 99 09/11/20 02:34 68 14 40 09/11/20 02:00 60 15 120/62 (81) 97 ROS: unchanged from my evaluation on 09/10/20. HEENT: Orally intubated, Mechanically Ventilated, Thin secretions ET Tube RHYTHM: other - paced LUNGS: bilateral rhonchi CARDIAC: normal rate, regular rhythm, normal S1 and S2 ABDOMEN: normal bowel sounds, non tender, soft, no organomegaly EXTREMITIES: trace edema, other - adequate distal perfusion Laboratory Tests Test 09/11/20 03:56 09/11/20 07:30 09/11/20 15:00 White Blood Count 15.6 K/UL (4.8-10.8) H Red Blood Count 4.44 M/UL (4.70-6.10) L Hemoglobin 12.9 G/DL (14.2-18.0) L Hematocrit 39.0 % (42.0-52.0) L Mean Corpuscular Volume 88 FL (80-99) Mean Corpuscular Hemoglobin 29.0 PG (27.0-31.0) Mean Corpuscular Hemoglobin Concent 33.0 G/DL (32.0-36.0) Red Cell Distribution Width 13.6 % (11.6-14.8) Platelet Count 143 K/UL (150-450) L Mean Platelet Volume 6.5 FL (6.5-10.1) Neutrophils (%) (Auto) 84.0 % (45.0-75.0) H Lymphocytes (%) (Auto) 7.0 % (20.0-45.0) L Monocytes (%) (Auto) 5.4 % (1.0-10.0) Eosinophils (%) (Auto) 0.0 % (0.0-3.0) Basophils (%) (Auto) 3.6 % (0.0-2.0) H Sodium Level 143 MMOL/L (136-145) Potassium Level 4.0 MMOL/L (3.5-5.1) Chloride Level 112 MMOL/L (98-107) H Carbon Dioxide Level 23 MMOL/L (21-32) Blood Urea Nitrogen 28 mg/dL (7-18) H Creatinine 1.0 MG/DL (0.55-1.30) Estimat Glomerular Filtration Rate > 60 mL/min (>60) Glucose Level 252 MG/DL (74-106) H Lactic Acid Level 2.30 mmol/L (0.4-2.0) H 3.00 mmol/L (0.66-2.22) H 1.90 mmol/L (0.4-2.0) Calcium Level 7.2 MG/DL (8.5-10.1) L Magnesium Level 2.1 MG/DL (1.8-2.4) Total Bilirubin 0.5 MG/DL (0.2-1.0) Aspartate Amino Transf (AST/SGOT) 22 U/L (15-37) Alanine Aminotransferase (ALT/SGPT) 6 U/L (12-78) L Alkaline Phosphatase 59 U/L (46-116) Troponin I 0.055 ng/mL (0.000-0.056) Total Protein 5.5 G/DL (6.4-8.2) L Albumin 2.0 G/DL (3.4-5.0) L Globulin 3.5 g/dL Albumin/Globulin Ratio 0.6 (1.0-2.7) L Random Vancomycin Level 8.7 ug/mL Microbiology Date/Time Source Procedure Growth Status 09/10/20 15:10 Rectum Received 09/10/20 15:10 Urine,Clean Catch Urine Culture - Preliminary NO GROWTH Resulted 09/10/20 14:40 Blood Blood Culture - Preliminary Resulted 09/10/20 14:32 Nasopharynx SARS-CoV-2 RdRp Gene Assay - Final Complete Assessment/Plan Assessment/Plan Sepsis with shock UTI Respiratory failure HC associated PNA Pacemaker Ac/chr diastolic CHF Acute myocardial ischemia Lactic acidosis Hypovolemia/dehydration/hypernatremia Severe protein/calorie malnutrition Rhabdomyolysis IVF hydration Avoid pressors Abx Vent support; wean as able DVT prophyl Pacemaker eval if not recently done Slick Desai MD Sep 12, 2020 01:36
--- NOTE | 2020-09-12 02:00 | NUR ---
Nurse Notes: patient asleep arousable to shaking but nonverbal with 7.5 ETT at 24 lipline on ventilator AC 14 TV 500 FiO2 40% PEEP 5. BP 132/59 HR 62 Apaced on monitor. right Forearm #20 and left wrist #22 running 1/2NS @100ml/hr. OGT clamped and patent. Howe catheter draining dark lisandra urine. Patient repositioned and oral care provided.
--- NOTE | 2020-09-12 03:30 | Consultation ---
DATE OF CONSULTATION: 09/10/2020 CARDIOLOGY CONSULT CONSULTING PHYSICIAN: Slick Desai M.D. REQUESTING PHYSICIAN: Paulino Reyes M.D. REASON FOR CONSULTATION: Elevated troponin level. HISTORY OF PRESENT ILLNESS: This is an 89-year-old male, who resides at a jail facility. He was noted to have low blood pressure and respiratory distress as well as hypoxia in the jail facility. He was placed on a non-rebreather mask with minimal improvement. Paramedics were summoned and he was noted to have a systolic blood pressure in the 80 range and poorly responsive. He was brought into the emergency room where further management was initiated. His condition was poor. Respiratory failure was noted and intubation with mechanical ventilation initiated. The patient was also hypotensive despite a fluid challenge and required initiation of pressor support. I have been asked to further assist with cardiovascular care. The patient is unable to give any historical information at this time. Records are reviewed from the jail facility. PAST MEDICAL HISTORY: Includes COPD, hypertension, history of congestive heart failure, permanent pacemaker, osteoarthritis, osteoporosis, cerebrovascular disease with dementia tachy-vaughn syndrome, paroxysmal atrial fibrillation, hypothyroidism. ALLERGIES: Amiodarone, penicillin, levofloxacin. MEDICATIONS: Reviewed and reconciled. FAMILY HISTORY: Not known. SOCIAL HISTORY: Not obtainable. Presently, he resides in a jail facility and there is no record of smoking or alcohol use. REVIEW OF SYSTEMS: Not obtainable. PERTINENT DATA: From 20-minute review of records is outlined above. PHYSICAL EXAMINATION: GENERAL: Orally intubated, edentulous, mechanically ventilated. VITAL SIGNS: Blood pressure 85/45, heart rate 60, and respiratory rate of 28. LUNGS: Accessory muscle use. Bilateral rhonchi. HEART: Regular rhythm and rate. Normal S1, paradoxically split S2. No murmur. ABDOMEN: Soft, flat, nontender. EXTREMITIES: No clubbing, cyanosis, no edema. Decreased capillary refill. Moves all extremities. LABORATORY AND DIAGNOSTIC DATA: EKG reveals sinus rhythm. First-degree AV block. Incomplete right bundle-branch block. Nonspecific ST change. Chest x-ray reveals left lower lobe infiltrate and ET tube satisfactorily positioned. COVID-19 swab negative. Sodium 146, potassium 4.6, bicarb 34, BUN 36, creatinine 1.4, magnesium 2.5. CK 1477. Natriuretic peptide 2107, troponin 0.057, albumin 2.5. White count 10.8, hemoglobin 13.5. ABG, 7.43, 35, 257 post intubation. Urinalysis 30 to 40 white cells, too numerous to count red cells. IMPRESSION: 1. Sepsis. 2. Shock. 3. Hypovolemia. 4. Dehydration. 5. Rhabdomyolysis. 6. Respiratory failure. 7. Hypoxia. 8. Severe protein-calorie malnutrition. 9. Hypernatremia. 10. Acute myocardial ischemia. 11. Healthcare associated pneumonia. 12. Urinary tract infection. 13. Condition critical. Prognosis guarded. 14. Type 2 diabetes mellitus with hyperglycemia. PLAN: 1. ICU care. 2. Ventilator support. 3. Moy culture. 4. Empiric antimicrobials. 5. Hypotonic IV fluids. 6. Taper off pressors. 7. DVT prophylaxis. 8. NG tube for nutrition. 9. Follow up CK results. 10. Serial troponin level. 11. Insulin coverage by sliding scale. Slick Desai M.D. DR: MARICHUY JOB#: [id number] CC:
--- NOTE | 2020-09-12 04:00 | NUR ---
Nurse Notes: patient asleep arousable to shaking but nonverbal with 7.5 ETT at 24 lipline on ventilator AC 14 TV 500 FiO2 40% PEEP 5. BP 120/81 HR 105 Apaced on monitor and afebrile. right Forearm #20 and left wrist #22 running 1/2NS @100ml/hr. OGT clamped and patent. Howe catheter draining dark lisandra urine. Patient repositioned and oral care provided.
[2020-09-12] MEDS: Cefepime HCl 1 GM in D5W 55 ML IVPB SCH ×2 (04:36→16:30)
[2020-09-12] MEDS: Heparin 5000 units/ml inj SUBQ SCH ×3 (06:00→20:41)
--- NOTE | 2020-09-12 06:00 | NUR ---
Nurse Notes: patient asleep arousable to shaking but nonverbal with 7.5 ETT at 24 lipline on ventilator AC 14 TV 500 FiO2 40% PEEP 5. BP 1113/77 HR 106 Apaced on monitor and afebrile. right Forearm #20 and left wrist #22 running 1/2NS @100ml/hr. OGT clamped and patent. Howe catheter draining dark lisandra urine. bilateral upper extremity edema with ecchymosis and closed blisters. Patient repositioned and oral care provided.
[2020-09-12] MEDS: Vancomycin 1.25gm/NS Premix q24h IVPB SCH (06:16)
--- NOTE | 2020-09-12 06:19 | Diagnostic Imaging Report ---
EXAM: XR Chest, 1 View CLINICAL HISTORY: SOB TECHNIQUE: Frontal view of the chest. COMPARISON: No relevant imaging studies available. FINDINGS: Lungs: Left lower lobe hazy opacity is present as well as blunting of the left costophrenic angle. Lungs are hypoinflated. Right lung is clear. Pleural space: Unremarkable. No pneumothorax. Heart: No cardiomegaly. Thoracic aorta atherosclerotic disease. Mediastinum: Unremarkable. Bones/joints: Unremarkable. Tubes, lines and devices: Left dual-lead cardiac pacer is noted. Endotracheal tube projects 5.5 cm above the gorge. IMPRESSION: 1. Endotracheal tube tip projects 5.5 cm above the gorge. 2. Left lower lobe hazy opacity likely represents a pleural effusion with adjacent atelectasis. Underlying infiltrate cannot be exclude.
--- NOTE | 2020-09-12 06:19 | Diagnostic Imaging Report ---
EXAM: XR Abdomen, 2 Views CLINICAL HISTORY: LINE TECHNIQUE: Frontal view of the abdomen/pelvis with upright view of the abdomen. COMPARISON: None FINDINGS: Intraperitoneal space: No free air. Gastrointestinal tract: Unremarkable. No dilation. Bones/joints: Degenerative changes are seen within the spine. There is no acute bony abnormality. Tubes, lines and devices: A nasogastric tube terminates within the stomach. IMPRESSION: The nasogastric tube terminates within the stomach.
--- NOTE | 2020-09-12 07:19 | NUR ---
NURSE HAND-OFF REPORT: Latest Vital Signs: Temperature 98.6 , Pulse 106 , B/P 113 /77 , Respiratory Rate 14 , O2 SAT 94 , Mechanical Ventilator, O2 Flow Rate 15.0 . Vital Sign Comment: WNL EKG Rhythm: A-Paced Rhythm change?: N MD Notified?: - MD Response: Latest Swartz Fall Score: 70 Fall Risk: High Risk Safety Measures: Call light Within Reach, Bed Alarm Zone 1, Side Rails Side Rails x2, Bed position Low and Locked. Fall Precautions: Door Sign Report given to DAYO Conway.
--- NOTE | 2020-09-12 07:20 | NUR ---
NURSE NOTES: Received patient from Bethany OSHEA. Patient is obtunded, A. Paced on the heart monitor, HR 96. Receiving oxygen via ET Tube 7.5 24cm at the lip line, vent settings: AC 14, TV 500, FiO2 40%. PEEP 5. OGT is intact and clamped, patient is NPO. IV site is Right AC20g intact and receiving 1/2 NS at 100cc/hr, Left wrist 22g is intact and asymptomatic. Howe catheter is intact and draining. Bed is locked, placed in lowest position, side rails up x3, bed alarm on, head of bed elevated.
--- NOTE | 2020-09-12 08:22 | NUR ---
RD ASSESSMENT & RECOMMENDATIONS SEE CARE ACTIVITY FOR COMPLETE ASSESSMENT DAILY ESTIMATED NEEDS: Needs based on Critical care/ 77kg 22-28 kcals/kg 3434-0432 total kcals 1.2-2 g protein/kg 92-154 g total protein 25-30 mL/kg 9939-6387 total fluid mLs NUTRITION DIAGNOSIS: Swallowing difficulty R/T respiratory failure as evidenced by orally intubated, w/ OGT in place, NPO. CURRENT TF:NPO PO DIET RECOMMENDATIONS: FURNACE CHARGER eval post extubation ENTERAL NUTRITION RECOMMENDATIONS: Glucerna 1.5@ 55ml/hr x 22 hrs to provide 1210ml, 1815kcal, 100g prot, 918ml free water * As medically appropriate, initiate Glucerna 1.5 @ 15ml/hr x 6hrs * Advance 10ml q 4-6 hrs as tolerated to goal * HOB over 30 degrees/ water flush per MD * Hold 1 hr before and after Synthroid ADDITIONAL RECOMMENDATIONS: * Per SNF; HT=68" [id number] (09/06/20) -> maintain calibrated bedscale wt * NISS w/ TF: h/o DM, FBS in the 200's * Monitor BGs, need for added D5 while NPO: FBGs in the 200's at this time * Monitor lytes, replete as needed * F/up WC eval for BL heels
[2020-09-12] MEDS: Levodopa/Carbidopa 25/100 tab ORAL SCH ×3 (08:39→18:34)
[2020-09-12] MEDS: Pantoprazole Inj IVP SCH (08:39)
--- NOTE | 2020-09-12 09:46 | NUR ---
NURSE NOTES: Medications given as prescribed, no adverse reaction noted. Oral care and endotracheal suctioning done, thick lara secretions removed. Patient is afebrile, turned and repositioned patient.
--- NOTE | 2020-09-12 10:21 | NUR ---
NURSE NOTES: Patient seen by wound care nurse.
--- NOTE | 2020-09-12 10:54 | NUR ---
NURSE NOTES: Glucerna 1.5 tube feeding initiated at 10cc/hr, goal is 50cc/hr.
--- NOTE | 2020-09-12 11:03 | NUR ---
NURSE NOTES:WOUND ASSESSMENT PATIENT NON-RESPONSIVE AND INTUBATED. BILATERAL FOREARMS NOTED TO BE EDEMATOUS AND WITH MULTIPLE DARK PURPLE BRUISES. NO SKIN BREAKDOWN/DRAINAGE SEEN THOUGH SKIN APPEARS VERY THIN. SKIN ASSESSMENT DONE WITHOUT ANY SIGNS OF PRESSURE INJURY NOTED. RECOMMEND- WOUND PREVENTION PROTOCOLS BE FOLLOWED WITH HEELS ELEVATED WITH PILLOWS AND PATIENT BE REPOSITIONED EVERY 2 HOURS OR TOLERATED.
--- NOTE | 2020-09-12 11:46 | NUR ---
NURSE NOTES: Patient seen and assessed by Dr. Garrison.
--- NOTE | 2020-09-12 12:11 | NUR ---
CASE MANAGEMENT:REVIEW 89 YR OLD MALE BIBA FROM CC: SOB SI: RESPIRATORY FAILURE 103.0 60 28 85/45 92% ON 15L NRB TCK+1477 TROPONIN(+) 0.057 IS: INTUBATED IN ER LEVOPHED GTT IV VANCOMYCIN IV ZOSYN IV DECADRON : TO ICU
--- NOTE | 2020-09-12 13:05 | NUR ---
Social Work This SW followed up with patient who is currently in the ICU, currently on a vent, mostly sedated. This Sw spoke with daughter, Lisa Heller @ [phone] who explains patient has been more confused, lives at [facility] for the past two years and planning for patient to discharge to this facility when medically stable for discharge. Daughter explains patient does not have an AD, while daughter remains as the primary contact for patient. Daughter plans to visit today (along with patients spouse). Emotional support provided to daughter. Daughter expressing no further needs or concerns at this time, while remaining in communication with the ICU nurses regarding progress. Pending progress. SW to follow as needed.
[2020-09-12] MEDS ORDERED: 1/2 NS 1000ml IV ONE (15:47)
[2020-09-12] MEDS ORDERED: NS 275ml ONE (15:47)
[2020-09-12] MEDS ORDERED: NS 500ML ONE (15:47)
[2020-09-12] MEDS ORDERED: Tubing IV Secondary IV ONE ×2 (15:47)
[2020-09-12] MEDS: Montelukast 10mg tablet ORAL SCH (16:47)
--- NOTE | 2020-09-12 17:31 | Critical Care Progress Note ---
Assessment/Plan Assessment/Plan ASSESSMENT: Acute respiratory failure due to aspiration pneumonia, urinary tract infection, pacemaker,leukocytosis with possible sepsis , atrial fibrillation, asthma, UTI, severe PCM PLAN care noted IV antibiotics respiratory care Ventilatory support SNF meds supportive care suction DVT prophylaxis no wean oxygen therapy as needed prognosis guarded medications/laboratory data/nursing notes/ICU care reviewed in detail note reviewed and edited care discussed with RN and RT ICU time spent >90 minutes Critical Care - Subjective Interval Events: doing poorly overall d/w RN in ICU not improved overnight events reviewed ROS Limited/Unobtainable: Yes Condition: critical EKG Rhythm: Sinus Rhythm Residuals: minimal Tube Feeding Tolerated: yes I&O: Intake and Output 09/11/20 09/12/20 19:00 07:00 Intake Total 1210 ml 1354.9976 ml Output Total 540 ml 310 ml Balance 670 ml 1044.9976 ml Intake IV Total 1210 ml 1354.9976 ml Output Urine Total 540 ml 310 ml # Bowel Movements 1 Critical Care - Objective ET-Tube: 7.5 ET Position: 24 Last 24 Hour Vital Signs Date Time Temp Pulse Resp B/P (MAP) Pulse Ox O2 Delivery O2 Flow Rate FiO2 09/12/20 17:00 67 15 128/20 (56) 99 09/12/20 16:00 68 09/12/20 16:00 Mechanical Ventilator 09/12/20 16:00 68 14 124/20 (54) 98 09/12/20 15:27 62 16 40 09/12/20 15:00 64 15 135/80 (98) 99 09/12/20 14:00 107 15 125/83 (97) 99 09/12/20 13:00 104 14 119/77 (91) 100 09/12/20 12:00 98.1 107 14 95/76 (82) 98 09/12/20 12:00 Mechanical Ventilator 09/12/20 11:25 99 09/12/20 11:00 78 14 159/77 (104) 99 09/12/20 10:50 60 14 40 09/12/20 10:01 99 09/12/20 10:00 60 14 151/69 (96) 100 09/12/20 09:00 61 15 156/84 (108) 100 09/12/20 08:00 Mechanical Ventilator 09/12/20 08:00 97.7 108 14 132/76 (94) 99 09/12/20 07:52 112 09/12/20 07:15 107 16 40 09/12/20 07:00 104 14 123/81 (95) 97 09/12/20 06:30 102 14 09/12/20 06:00 106 14 113/77 (89) 94 09/12/20 05:00 98 14 128/78 (95) 99 09/12/20 04:00 108 09/12/20 04:00 98.6 105 14 120/81 (94) 99 09/12/20 04:00 Mechanical Ventilator 09/12/20 03:00 110 15 121/78 (92) 100 09/12/20 02:49 115 15 40 09/12/20 02:00 62 14 132/59 (83) 100 09/12/20 01:00 60 14 126/55 (78) 100 09/12/20 00:00 99.0 74 14 122/56 (78) 100 09/12/20 00:00 71 09/12/20 00:00 Mechanical Ventilator 09/11/20 23:07 60 17 40 09/11/20 23:00 61 14 107/53 (71) 100 09/11/20 22:00 60 14 122/51 (74) 100 09/11/20 21:00 60 16 103/65 (78) 100 09/11/20 20:53 40 09/11/20 20:00 97.9 63 15 121/55 (77) 99 09/11/20 20:00 60 09/11/20 20:00 Mechanical Ventilator 09/11/20 19:41 71 15 40 09/11/20 19:00 60 17 122/57 (78) 99 09/11/20 18:00 99 15 116/71 (86) 98 Objective: WDWN NAD orally intubated ETT reduced breath sounds bilaterally without rhonchi or wheeze [id number] without MRG NABS nontender no HSM no CCE nonfocal poor LOC feeding tube in place skin noted Micro: Microbiology Date/Time Source Procedure Growth Status 09/11/20 03:00 Sputum Gram Stain - Final Resulted 09/11/20 03:00 Sputum Sputum Culture Pending Resulted 09/10/20 15:10 Rectum - Final NO CARBAPENEM-RESISTANT ENTEROBACTERI... Complete 09/10/20 15:10 Rectum VRE Culture - Final NO VANCOMYCIN RESISTANT ENTEROCOCCUS ... Complete 09/10/20 15:10 Urine,Clean Catch Urine Culture - Final Diphtheroids Complete 09/10/20 15:10 Nasal Nares MRSA Culture - Final NO METHICILLIN RESISTANT STAPH AUREUS... Complete 09/10/20 14:40 Blood Blood Culture - Preliminary Staphylococcus Sp Coag Neg Resulted 09/10/20 14:32 Nasopharynx SARS-CoV-2 RdRp Gene Assay - Final Complete 09/10/20 14:32 Blood Blood Culture - Preliminary Staphylococcus Sp Coag Neg Resulted Kyle Mark MD Sep 12, 2020 17:31
--- NOTE | 2020-09-12 17:36 | NUR ---
NURSE NOTES: Patient is more responsive, responds to name, able to follow commands.
--- NOTE | 2020-09-12 18:04 | NUR ---
NURSE NOTES: Bed bath given to patient, patient tolerated well, able to assist. Patient is stable, tolerating ventilator settings well, O2 saturation 98%-100%.
--- NOTE | 2020-09-12 18:22 | Brief Operative Note ---
Immediate Post Operative Note Operative Note Pre-op Diagnosis: needs central IV access Procedure: PICC Post-op Diagnosis: same as pre-op Surgeon: Mukund Adams Specimen: none Complications: none Fluids: none Implant(s) used?: No Eliecer Adams MD Sep 12, 2020 18:22
--- NOTE | 2020-09-12 18:24 | NUR ---
RADIOLOGY NOTE: RIGHT UPPER EXTREMITY PICC LINE PLACEMENT BY DR. TO VALDEZ AT 1540 HRS. FA
--- NOTE | 2020-09-12 18:28 | Diagnostic Imaging Report ---
Indications: Needs long-term IV access Technique: Procedure performed at bedside. Procedural timeout performed. Ultrasound confirms patent compressible right basilic vein. Total sterile technique, including sterile probe cover and sterile gel, sterile gloves, hand hygiene, hat, mask,, sterile gown, large sterile drape, and preparation with 2% chlorhexidine utilized. Local anesthesia with 1% lidocaine. Under real-time ultrasound guidance, puncture basilic vein using 21-gauge needle, passage 0.018 guidewire, exchange for 4 Latvian peel-away sheath. 4 Latvian Bard dual-lumen power PICC cut to 34 cm. It was inserted through the peel-away sheath. Peel-away sheath and guidewire removed. Catheter fixed to the skin. Both catheter ports aspirated and flushed. Patient tolerated procedure well, without immediate complication. Followup chest x-ray obtained, documents catheter tip position at the innominate venous confluence Impression: Successful bedside placement of right arm PICC under sonographic guidance, as described above.
--- NOTE | 2020-09-12 18:39 | General Progress Note ---
Subjective ROS Limited/Unobtainable: Yes Constitutional: Reports: malaise, weakness HEENT: Reports: no symptoms Cardiovascular: Reports: no symptoms Respiratory: Reports: cough, shortness of breath, sputum Gastrointestinal/Abdominal: Reports: difficulty swallowing Genitourinary: Reports: no symptoms Neurologic/Psychiatric: Reports: depressed Endocrine: Reports: no symptoms Hematologic/Lymphatic: Reports: anemia Allergies: Coded Allergies: AMIODARONE (Verified Allergy, Unknown, 09/10/20) LEVOFLOXACIN (Verified Allergy, Unknown, 09/10/20) PENICILLINS (Verified Allergy, Unknown, 09/10/20) All Systems: reviewed and negative except above Subjective no events. stable on the vent. no fevers. BP stable. waiting for picc. on iv abx. Objective Last 24 Hour Vital Signs Date Time Temp Pulse Resp B/P (MAP) Pulse Ox O2 Delivery O2 Flow Rate FiO2 09/12/20 18:00 76 18 116/20 (52) 99 09/12/20 17:00 67 15 128/20 (56) 99 09/12/20 16:00 68 09/12/20 16:00 Mechanical Ventilator 09/12/20 16:00 68 14 124/20 (54) 98 09/12/20 16:00 98.0 68 14 124/20 (54) 98 09/12/20 15:27 62 16 40 09/12/20 15:00 64 15 135/80 (98) 99 09/12/20 14:00 107 15 125/83 (97) 99 09/12/20 13:00 104 14 119/77 (91) 100 09/12/20 12:00 98.1 107 14 95/76 (82) 98 09/12/20 12:00 Mechanical Ventilator 09/12/20 11:25 99 09/12/20 11:00 78 14 159/77 (104) 99 09/12/20 10:50 60 14 40 09/12/20 10:01 99 09/12/20 10:00 60 14 151/69 (96) 100 09/12/20 09:00 61 15 156/84 (108) 100 09/12/20 08:00 Mechanical Ventilator 09/12/20 08:00 97.7 108 14 132/76 (94) 99 09/12/20 07:52 112 09/12/20 07:15 107 16 40 09/12/20 07:00 104 14 123/81 (95) 97 09/12/20 06:30 102 14 09/12/20 06:00 106 14 113/77 (89) 94 09/12/20 05:00 98 14 128/78 (95) 99 09/12/20 04:00 108 09/12/20 04:00 98.6 105 14 120/81 (94) 99 09/12/20 04:00 Mechanical Ventilator 09/12/20 03:00 110 15 121/78 (92) 100 09/12/20 02:49 115 15 40 09/12/20 02:00 62 14 132/59 (83) 100 09/12/20 01:00 60 14 126/55 (78) 100 09/12/20 00:00 99.0 74 14 122/56 (78) 100 09/12/20 00:00 71 09/12/20 00:00 Mechanical Ventilator 09/11/20 23:07 60 17 40 09/11/20 23:00 61 14 107/53 (71) 100 09/11/20 22:00 60 14 122/51 (74) 100 09/11/20 21:00 60 16 103/65 (78) 100 09/11/20 20:53 40 09/11/20 20:00 97.9 63 15 121/55 (77) 99 09/11/20 20:00 60 09/11/20 20:00 Mechanical Ventilator 09/11/20 19:41 71 15 40 09/11/20 19:00 60 17 122/57 (78) 99 Intake and Output 09/11/20 09/12/20 19:00 07:00 Intake Total 1210 ml 1354.9976 ml Output Total 540 ml 310 ml Balance 670 ml 1044.9976 ml Intake IV Total 1210 ml 1354.9976 ml Output Urine Total 540 ml 310 ml # Bowel Movements 1 Height (Feet): 5 Height (Inches): 8.00 Weight (Pounds): 167 General Appearance: WD/WN, alert Neck: supple Cardiovascular: regular rhythm Respiratory/Chest: chest wall non-tender, lungs clear, normal breath sounds Abdomen: normal bowel sounds, non tender, soft, no organomegaly Edema: no edema noted Leg (L), no edema noted Leg (R) Edema: trace edema Neurologic: disoriented, unresponsive, aphasia Skin: normal pigmentation Assessment/Plan Problem List: (1) Pneumonia ICD Codes: J18.9 - Pneumonia, unspecified organism SNOMED: 135115484, 043684293, 821898659 (2) UTI (urinary tract infection) ICD Codes: N39.0 - Urinary tract infection, site not specified SNOMED: 08633818, 522658789, 046732708 (3) Respiratory failure ICD Codes: J96.90 - Respiratory failure, unspecified, unspecified whether with hypoxia or hypercapnia SNOMED: 453687023 Status: stable, progressing Assessment/Plan: iv abx resp rx follow up cultures ivf dvt/stress ulcer prophylaxis skin care turn q2 full code per family Paulino Reyes MD Sep 12, 2020 18:39
--- NOTE | 2020-09-12 19:10 | NUR ---
NURSE NOTES: pt report received from PAT RN. pt remains stable. pt is alert and oriented times 1, no acute abnormalities neuro mcdermott. pt is on playground monitor showing A pace, no acute cardiac distress noted. pt is trach vented sating 99% O2, no acute resp distress noted. pt bed is low, locked, armed, call light within reach, will follow plan of care.
--- NOTE | 2020-09-12 19:25 | NUR ---
NURSE HAND-OFF REPORT: Latest Vital Signs: Temperature 98.0 , Pulse 63 , B/P 111 /26 , Respiratory Rate 15 , O2 SAT 100 , Mechanical Ventilator, O2 Flow Rate 15.0 . Vital Sign Comment: EKG Rhythm: A-Paced Rhythm change?: N MD Notified?: - MD Response: Latest Swartz Fall Score: 70 Fall Risk: High Risk Safety Measures: Call light Within Reach, Bed Alarm Zone 1, Side Rails Side Rails x2, Bed position Low and Locked. Fall Precautions: Door Sign Report given to Mika OSHEA.
[2020-09-12] MEDS: Dyna-Hex 2% Top Sol 2oz TOPIC SCH (20:43)
[2020-09-12] MEDS: Tamsulosin 0.4mg cap ORAL SCH (20:43)
--- NOTE | 2020-09-12 21:15 | Cardiology Progress Note ---
Subjective DATE OF SERVICE: Sep 12, 2020 Remains off pressors; still on IVF support BP parameters more stable. Monitor: Paced rhythm +blood cultures noted Objective Last 24 Hour Vital Signs Date Time Temp Pulse Resp B/P (MAP) Pulse Ox O2 Delivery O2 Flow Rate FiO2 09/12/20 19:30 70 16 40 09/12/20 19:00 63 15 111/26 (54) 100 09/12/20 18:00 76 18 116/20 (52) 99 09/12/20 17:00 67 15 128/20 (56) 99 09/12/20 16:00 68 09/12/20 16:00 Mechanical Ventilator 09/12/20 16:00 68 14 124/20 (54) 98 09/12/20 16:00 98.0 68 14 124/20 (54) 98 09/12/20 15:27 62 16 40 09/12/20 15:00 64 15 135/80 (98) 99 09/12/20 14:00 107 15 125/83 (97) 99 09/12/20 13:00 104 14 119/77 (91) 100 09/12/20 12:00 98.1 107 14 95/76 (82) 98 09/12/20 12:00 Mechanical Ventilator 09/12/20 11:25 99 09/12/20 11:00 78 14 159/77 (104) 99 09/12/20 10:50 60 14 40 09/12/20 10:01 99 09/12/20 10:00 60 14 151/69 (96) 100 09/12/20 09:00 61 15 156/84 (108) 100 09/12/20 08:00 Mechanical Ventilator 09/12/20 08:00 97.7 108 14 132/76 (94) 99 09/12/20 07:52 112 09/12/20 07:15 107 16 40 09/12/20 07:00 104 14 123/81 (95) 97 09/12/20 06:30 102 14 09/12/20 06:00 106 14 113/77 (89) 94 09/12/20 05:00 98 14 128/78 (95) 99 09/12/20 04:00 108 09/12/20 04:00 98.6 105 14 120/81 (94) 99 09/12/20 04:00 Mechanical Ventilator 09/12/20 03:00 110 15 121/78 (92) 100 09/12/20 02:49 115 15 40 09/12/20 02:00 62 14 132/59 (83) 100 09/12/20 01:00 60 14 126/55 (78) 100 09/12/20 00:00 99.0 74 14 122/56 (78) 100 09/12/20 00:00 71 09/12/20 00:00 Mechanical Ventilator 09/11/20 23:07 60 17 40 09/11/20 23:00 61 14 107/53 (71) 100 09/11/20 22:00 60 14 122/51 (74) 100 ROS: unchanged from my evaluation on 09/10/20. HEENT: Orally intubated, Mechanically Ventilated, Thin secretions ET Tube RHYTHM: other - paced LUNGS: bilateral rhonchi CARDIAC: normal rate, regular rhythm, normal S1 and S2 ABDOMEN: normal bowel sounds, non tender, soft, no organomegaly EXTREMITIES: trace edema, other - adequate distal perfusion Microbiology Date/Time Source Procedure Growth Status 09/11/20 03:00 Sputum Gram Stain - Final Resulted 09/11/20 03:00 Sputum Sputum Culture Pending Resulted 09/10/20 15:10 Rectum - Final NO CARBAPENEM-RESISTANT ENTEROBACTERI... Complete 09/10/20 15:10 Rectum VRE Culture - Final NO VANCOMYCIN RESISTANT ENTEROCOCCUS ... Complete 09/10/20 15:10 Urine,Clean Catch Urine Culture - Final Diphtheroids Complete 09/10/20 15:10 Nasal Nares MRSA Culture - Final NO METHICILLIN RESISTANT STAPH AUREUS... Complete 09/10/20 14:40 Blood Blood Culture - Preliminary Staphylococcus Sp Coag Neg Resulted 09/10/20 14:32 Nasopharynx SARS-CoV-2 RdRp Gene Assay - Final Complete 09/10/20 14:32 Blood Blood Culture - Preliminary Staphylococcus Sp Coag Neg Resulted Assessment/Plan Assessment/Plan Sepsis with shock UTI Respiratory failure HC associated PNA Pacemaker Ac/chr diastolic CHF Acute myocardial ischemia and possible NSTE myocardial infarction Lactic acidosis Hypovolemia/dehydration/hypernatremia Severe protein/calorie malnutrition Rhabdomyolysis IVF hydration Avoid pressors Abx Vent support; wean as able DVT prophyl Pacemaker eval if not recently done - await data from SNF. Slick Maldonado MD Sep 12, 2020 21:15
--- NOTE | 2020-09-12 22:02 | General Progress Note ---
Subjective Allergies: Coded Allergies: AMIODARONE (Verified Allergy, Unknown, 09/10/20) LEVOFLOXACIN (Verified Allergy, Unknown, 09/10/20) PENICILLINS (Verified Allergy, Unknown, 09/10/20) Subjective above noted d/w staff development educator tolerating TF Objective Last 24 Hour Vital Signs Date Time Temp Pulse Resp B/P (MAP) Pulse Ox O2 Delivery O2 Flow Rate FiO2 09/12/20 20:00 40 09/12/20 20:00 Mechanical Ventilator 09/12/20 19:30 70 16 40 09/12/20 19:00 63 15 111/26 (54) 100 09/12/20 18:00 76 18 116/20 (52) 99 09/12/20 17:00 67 15 128/20 (56) 99 09/12/20 16:00 68 09/12/20 16:00 Mechanical Ventilator 09/12/20 16:00 68 14 124/20 (54) 98 09/12/20 16:00 98.0 68 14 124/20 (54) 98 09/12/20 15:27 62 16 40 09/12/20 15:00 64 15 135/80 (98) 99 09/12/20 14:00 107 15 125/83 (97) 99 09/12/20 13:00 104 14 119/77 (91) 100 09/12/20 12:00 98.1 107 14 95/76 (82) 98 09/12/20 12:00 Mechanical Ventilator 09/12/20 11:25 99 09/12/20 11:00 78 14 159/77 (104) 99 09/12/20 10:50 60 14 40 09/12/20 10:01 99 09/12/20 10:00 60 14 151/69 (96) 100 09/12/20 09:00 61 15 156/84 (108) 100 09/12/20 08:00 Mechanical Ventilator 09/12/20 08:00 97.7 108 14 132/76 (94) 99 09/12/20 07:52 112 09/12/20 07:15 107 16 40 09/12/20 07:00 104 14 123/81 (95) 97 09/12/20 06:30 102 14 09/12/20 06:00 106 14 113/77 (89) 94 09/12/20 05:00 98 14 128/78 (95) 99 09/12/20 04:00 108 09/12/20 04:00 98.6 105 14 120/81 (94) 99 09/12/20 04:00 Mechanical Ventilator 09/12/20 03:00 110 15 121/78 (92) 100 09/12/20 02:49 115 15 40 09/12/20 02:00 62 14 132/59 (83) 100 09/12/20 01:00 60 14 126/55 (78) 100 09/12/20 00:00 99.0 74 14 122/56 (78) 100 09/12/20 00:00 71 09/12/20 00:00 Mechanical Ventilator 09/11/20 23:07 60 17 40 09/11/20 23:00 61 14 107/53 (71) 100 Intake and Output 09/11/20 09/12/20 19:00 07:00 Intake Total 1210 ml 1354.9976 ml Output Total 540 ml 310 ml Balance 670 ml 1044.9976 ml Intake IV Total 1210 ml 1354.9976 ml Output Urine Total 540 ml 310 ml # Bowel Movements 1 Height (Feet): 5 Height (Inches): 8.00 Weight (Pounds): 167 Objective Debilitated woman seen in ICU Intubated resting comfortably Abdomen non distended Assessment/Plan Status: stable, progressing Cece Garrison MD Sep 12, 2020 22:02
--- NOTE | 2020-09-12 22:07 | General Progress Note ---
Subjective Allergies: Coded Allergies: AMIODARONE (Verified Allergy, Unknown, 09/10/20) LEVOFLOXACIN (Verified Allergy, Unknown, 09/10/20) PENICILLINS (Verified Allergy, Unknown, 09/10/20) Subjective above noted d/w staff readiness officer tolerating TF Objective Last 24 Hour Vital Signs Date Time Temp Pulse Resp B/P (MAP) Pulse Ox O2 Delivery O2 Flow Rate FiO2 09/12/20 20:00 40 09/12/20 20:00 Mechanical Ventilator 09/12/20 19:30 70 16 40 09/12/20 19:00 63 15 111/26 (54) 100 09/12/20 18:00 76 18 116/20 (52) 99 09/12/20 17:00 67 15 128/20 (56) 99 09/12/20 16:00 68 09/12/20 16:00 Mechanical Ventilator 09/12/20 16:00 68 14 124/20 (54) 98 09/12/20 16:00 98.0 68 14 124/20 (54) 98 09/12/20 15:27 62 16 40 09/12/20 15:00 64 15 135/80 (98) 99 09/12/20 14:00 107 15 125/83 (97) 99 09/12/20 13:00 104 14 119/77 (91) 100 09/12/20 12:00 98.1 107 14 95/76 (82) 98 09/12/20 12:00 Mechanical Ventilator 09/12/20 11:25 99 09/12/20 11:00 78 14 159/77 (104) 99 09/12/20 10:50 60 14 40 09/12/20 10:01 99 09/12/20 10:00 60 14 151/69 (96) 100 09/12/20 09:00 61 15 156/84 (108) 100 09/12/20 08:00 Mechanical Ventilator 09/12/20 08:00 97.7 108 14 132/76 (94) 99 09/12/20 07:52 112 09/12/20 07:15 107 16 40 09/12/20 07:00 104 14 123/81 (95) 97 09/12/20 06:30 102 14 09/12/20 06:00 106 14 113/77 (89) 94 09/12/20 05:00 98 14 128/78 (95) 99 09/12/20 04:00 108 09/12/20 04:00 98.6 105 14 120/81 (94) 99 09/12/20 04:00 Mechanical Ventilator 09/12/20 03:00 110 15 121/78 (92) 100 09/12/20 02:49 115 15 40 09/12/20 02:00 62 14 132/59 (83) 100 09/12/20 01:00 60 14 126/55 (78) 100 09/12/20 00:00 99.0 74 14 122/56 (78) 100 09/12/20 00:00 71 09/12/20 00:00 Mechanical Ventilator 09/11/20 23:07 60 17 40 09/11/20 23:00 61 14 107/53 (71) 100 Intake and Output 09/11/20 09/12/20 19:00 07:00 Intake Total 1210 ml 1354.9976 ml Output Total 540 ml 310 ml Balance 670 ml 1044.9976 ml Intake IV Total 1210 ml 1354.9976 ml Output Urine Total 540 ml 310 ml # Bowel Movements 1 Height (Feet): 5 Height (Inches): 8.00 Weight (Pounds): 167 Objective Debilitated woman seen in ICU Intubated resting comfortably Abdomen non distended Assessment/Plan Status: stable, progressing Assessment/Plan: Assessment - minimal anemia - resp failure - DJD spine, spinal stenosis - Pancreatitis - PUD - Atrial fib - off anticoagulation - History of degenerative disc disease, spinal - stenosis, pancreatitis, cholangitis, peptic ulcer disease, Parkinson disease, atrial fibrillation Recommendations - continue TF - vent care - follow labs - elevate HOB - abx MD Bladimir Jeter Payman MD Sep 12, 2020 22:07
--- NOTE | 2020-09-12 22:10 | NUR ---
NURSE NOTES: pt turned, repositioned, and cleaned. vital signs assessed. no acute distress noted at this time.
[2020-09-13] VITALS (27 sets, daily range): BP systolic 104–139; BP diastolic 55–72
--- NOTE | 2020-09-13 00:11 | NUR ---
NURSE NOTES: pts PICC line dressing has been changed. small/ scant amount of dark/ old blood noted to PICC line site before dressing change. PICC line able to flush and have blood return with no resistance/ complications.
--- NOTE | 2020-09-13 03:00 | NUR ---
NURSE NOTES: pt turned repositioned and cleaned. opti foams in place on pts pressure points. tube feeding and pts IV tubing replaced and are iv to date. Addendum: 09/13/20 at 0651 by JOSE ALFREDO COHOA RN NURSE NOTES: pt turned repositioned and cleaned. opti foams in place on pts pressure points. tube feeding and pts IV tubing replaced and are up to date.
--- NOTE | 2020-09-13 03:00 | NUR ---
NURSE NOTES: bela index editor by pts bed side drawing pts lab/ and blood draw. Addendum: 09/13/20 at 0705 by JOSE ALFREDO OCHOA RN NURSE NOTES: bela index editor by pts bed side drawing pts lab/ blood draw.
[2020-09-13] MEDS: Cefepime HCl 1 GM in D5W 55 ML IVPB SCH ×2 (03:17→15:23)
[2020-09-13 05:23] LABS: BASOPHILS % (AUTO) 2.3 % (0.0-2.0); EOSINOPHILS % (AUTO) 1.9 % (0.0-3.0); HEMATOCRIT 36.9 % (42.0-52.0); HEMOGLOBIN 12.4 G/DL (14.2-18.0); MEAN CORPUSCULAR VOLUME 86 FL (80-99); MONOCYTES % (AUTO) 7.4 % (1.0-10.0); NEUTROPHILS % (AUTO) 78.4 % (45.0-75.0); PLATELET COUNT 126 K/UL (150-450); RED BLOOD COUNT 4.28 M/UL (4.70-6.10); RED CELL DISTRIBUTION WIDTH 13.3 % (11.6-14.8); WHITE BLOOD COUNT 8.6 K/UL (4.8-10.8)
--- NOTE | 2020-09-13 05:50 | NUR ---
NURSE NOTES: doctor Reyes made rounds to assess pt. no new order.
[2020-09-13] MEDS: Heparin 5000 units/ml inj SUBQ SCH ×3 (05:53→22:00)
[2020-09-13] MEDS: Vancomycin 1.25gm/NS Premix q24h IVPB SCH (06:01)
[2020-09-13 06:28] LABS: ALANINE AMINOTRANSFERASE < 6 U/L (12-78); ALBUMIN 1.7 G/DL (3.4-5.0); ALBUMIN/GLOBULIN RATIO 0.4 (1.0-2.7); ALKALINE PHOSPHATASE 89 U/L (46-116); ANION GAP 10 mmol/L (5-15); ASPARTATE AMINO TRANSFERASE 19 U/L (15-37); BILIRUBIN,TOTAL 0.4 MG/DL (0.2-1.0); BLOOD UREA NITROGEN 23 mg/dL (7-18); CALCIUM 7.3 MG/DL (8.5-10.1); CARBON DIOXIDE 20 MMOL/L (21-32); CHLORIDE 107 MMOL/L (98-107); CREATININE 0.6 MG/DL (0.55-1.30); POTASSIUM 3.5 MMOL/L (3.5-5.1); SODIUM 137 MMOL/L (136-145)
--- NOTE | 2020-09-13 07:20 | NUR ---
NURSE HAND-OFF REPORT: Latest Vital Signs: Temperature 98.3 , Pulse 60 , B/P 129 /57 , Respiratory Rate 18 , O2 SAT 100 , Mechanical Ventilator, O2 Flow Rate 15.0 . Vital Sign Comment: [STABLE] EKG Rhythm: A-Paced Rhythm change?: N MD Notified?: - MD Response: Latest Swartz Fall Score: 70 Fall Risk: High Risk Safety Measures: Call light Within Reach, Bed Alarm Zone 1, Side Rails Side Rails x2, Bed position Low and Locked. Fall Precautions: Door Sign Report given to [ADDI OSHEA].
--- NOTE | 2020-09-13 07:24 | NUR ---
NURSE NOTES: Patient received from DAYO Brennan. Patient observed laying in bed, opens eyes spontaneously, however not tracking and not following commands. Pt is orally intubated on ventilator, ETT 7.5, 24cm at the lip line. Vent settings AC 14 TV 500 PEEP 5 FiO2 100%. O2sat 99%. A paced on personnel monitor. LEXII picc intact and patent, running 1/2 NS @ 75mL/hr. Pt also has a Lt wrist #22g and Rt AC #20g, saline locked. OGtube present and patent, running Glucerna 1.5 @ 40mL/hr (Goal of 50mL/hr). Skin is warm dry and intact, noted to have generalized edema. Howe catheter draining good amount of urine to urometer. Bed locked and in lowest position, with call light within reach. Will resume plan of care.
--- NOTE | 2020-09-13 08:30 | NUR ---
NURSE NOTES: Dr Mark at bedside assessing pt. Updated him on pt's current condition. RT notified to attempt weaning off of the vent. Tube feeds held.
[2020-09-13] MEDS: Pantoprazole Inj IVP SCH (08:49)
[2020-09-13] MEDS: Levodopa/Carbidopa 25/100 tab ORAL SCH ×3 (08:49→17:43)
--- NOTE | 2020-09-13 09:30 | NUR ---
NURSE NOTES: Upon further assessment, pt is able to open eyes to physical stimuli and tracks with his eyes. Remains weak in all extremities. Not following commands at this time.
--- NOTE | 2020-09-13 10:00 | NUR ---
NURSE NOTES: Pt weaning at this time. PS 8, PEEP 5, 40% FiO2.
[2020-09-13] MEDS ORDERED: [UNRECOGNIZED DRUG - CODE] ORAL (10:18)
[2020-09-13] MEDS ORDERED: ALPHA LIPOIC A200 MG PO (10:18)
[2020-09-13] MEDS ORDERED: VITAMIN D325 MC1 PO (10:18)
[2020-09-13] MEDS ORDERED: SEN-O-TAB8.6 MG ORAL (10:18)
[2020-09-13] MEDS ORDERED: FLECAINIDE ACE150 MG PO (10:18)
[2020-09-13] MEDS ORDERED: ACETAMINOPHEN325 M1 ORAL (10:18)
[2020-09-13] MEDS ORDERED: SINEMET 25-1001 EAC1 ORAL (10:18)
[2020-09-13] MEDS ORDERED: OMEGA 3 1,0001 EACH PO (10:18)
[2020-09-13] MEDS ORDERED: LACTULOSE20 GM/301 ORAL (10:18)
[2020-09-13] MEDS ORDERED: NAMENDA XR7 MG PO (10:18)
[2020-09-13] MEDS ORDERED: PRO-STAT LIQUID30 ML ORAL (10:18)
[2020-09-13] MEDS ORDERED: DULCOLAX10 MG RC (10:18)
--- NOTE | 2020-09-13 10:24 | NUR ---
NURSE NOTES: Pt setting off alarms on ventilator. Pt notably tachypneic and TV are low at this time. Not tolerating weaning very well. Will ask RT to put pt back on original vent settings.
--- NOTE | 2020-09-13 10:48 | NUR ---
RESPIRATORY THERAPIST NOTES: Began weaning at 0900 placed Patient on SPON PS +8 PEEP +5 FIO12 40%. RSBI 80, RR 25, HR 68, SATS 100%, SPON VT 280s mL. After one hour PT became tachypneic with a SPON RR >36, SPON VT <200mL. Increased WOB and SOB. Placed Patient back onto previous settings on ACVC 14, 500, 40% FIO2 +5 at 1000. RN aware. ABG not drawn.
--- NOTE | 2020-09-13 11:28 | General Progress Note ---
Subjective ROS Limited/Unobtainable: No Constitutional: Reports: malaise, weakness HEENT: Reports: no symptoms Cardiovascular: Reports: no symptoms Respiratory: Reports: cough, shortness of breath, sputum Gastrointestinal/Abdominal: Reports: difficulty swallowing Genitourinary: Reports: no symptoms Neurologic/Psychiatric: Reports: no symptoms Endocrine: Reports: no symptoms Hematologic/Lymphatic: Reports: anemia Allergies: Coded Allergies: AMIODARONE (Verified Allergy, Unknown, 09/10/20) LEVOFLOXACIN (Verified Allergy, Unknown, 09/10/20) PENICILLINS (Verified Allergy, Unknown, 09/10/20) All Systems: reviewed and negative except above Subjective no events. stable on the vent. no fevers. BP stable. s/p picc. on iv abx. minimal secretions. fio2 40% Objective Last 24 Hour Vital Signs Date Time Temp Pulse Resp B/P (MAP) Pulse Ox O2 Delivery O2 Flow Rate FiO2 09/13/20 11:00 79 20 132/72 (92) 100 09/13/20 10:40 68 35 40 40 09/13/20 10:39 99 09/13/20 10:00 40 09/13/20 10:00 68 28 137/61 (86) 100 09/13/20 09:00 67 18 126/60 (82) 100 09/13/20 08:00 Mechanical Ventilator 09/13/20 08:00 98.5 63 21 134/61 (85) 100 09/13/20 08:00 73 09/13/20 08:00 40 09/13/20 07:30 60 17 40 09/13/20 07:00 60 18 129/57 (81) 100 09/13/20 06:30 64 20 09/13/20 06:00 66 19 117/56 (76) 100 09/13/20 05:30 65 18 129/60 (83) 100 09/13/20 05:00 64 20 128/61 (83) 100 09/13/20 04:30 62 18 125/59 (81) 100 09/13/20 04:00 98.3 67 20 115/55 (75) 100 09/13/20 04:00 69 09/13/20 04:00 40 09/13/20 04:00 Mechanical Ventilator 09/13/20 03:30 74 20 40 09/13/20 03:00 62 18 112/56 (74) 100 09/13/20 02:00 66 18 109/58 (75) 100 09/13/20 01:00 66 17 107/57 (74) 100 09/13/20 00:00 Mechanical Ventilator 09/13/20 00:00 98.6 68 17 104/63 (77) 100 09/13/20 00:00 69 09/13/20 00:00 40 09/12/20 23:19 70 19 40 09/12/20 23:00 69 19 114/17 (49) 100 09/12/20 22:00 68 19 114/52 (72) 98 09/12/20 21:00 73 21 115/55 (75) 100 09/12/20 20:00 40 09/12/20 20:00 98.1 60 17 111/57 (75) 98 09/12/20 20:00 Mechanical Ventilator 09/12/20 20:00 62 09/12/20 19:30 70 16 40 09/12/20 19:00 63 15 111/26 (54) 100 09/12/20 18:00 76 18 116/20 (52) 99 09/12/20 17:00 67 15 128/20 (56) 99 09/12/20 16:00 68 09/12/20 16:00 Mechanical Ventilator 09/12/20 16:00 68 14 124/20 (54) 98 09/12/20 16:00 98.0 68 14 124/20 (54) 98 09/12/20 15:27 62 16 40 09/12/20 15:00 64 15 135/80 (98) 99 09/12/20 14:00 107 15 125/83 (97) 99 09/12/20 13:00 104 14 119/77 (91) 100 09/12/20 12:00 98.1 107 14 95/76 (82) 98 09/12/20 12:00 Mechanical Ventilator Intake and Output 09/12/20 09/13/20 19:00 07:00 Intake Total 1528.329 ml 1435 ml Output Total 435 ml 415 ml Balance 1093.329 ml 1020 ml Intake IV Total 1328.329 ml 955 ml Tube Feeding 200 ml 480 ml Output Urine Total 435 ml 415 ml Laboratory Tests 09/13/20 03:50: White Blood Count 8.6, Red Blood Count 4.28L, Hemoglobin 12.4L, Hematocrit 36.9L , Mean Corpuscular Volume 86, Mean Corpuscular Hemoglobin 29.0, Mean Corpuscular Hemoglobin Concent 33.6, Red Cell Distribution Width 13.3, Platelet Count 126L, Mean Platelet Volume 7.7, Neutrophils (%) (Auto) 78.4H, Lymphocytes (%) (Auto) 10.0L, Monocytes (%) (Auto) 7.4, Eosinophils (%) (Auto) 1.9, Basophils (%) (Auto) 2.3H, Sodium Level 137, Potassium Level 3.5, Chloride Level 107, Carbon Dioxide Level 20L, Anion Gap 10, Blood Urea Nitrogen 23H, Creatinine 0.6, Estimat Glomerular Filtration Rate > 60, Glucose Level 216H, Calcium Level 7.3L, Magnesium Level 2.2, Total Bilirubin 0.4, Aspartate Amino Transf (AST/SGOT) 19, Alanine Aminotransferase (ALT/SGPT) < 6L, Alkaline Phosphatase 89, Pro-B-Type Natriuretic Peptide 2775H, Total Protein 5.5L, Albumin 1.7L, Globulin 3.8, Albumin/Globulin Ratio 0.4L Height (Feet): 5 Height (Inches): 8.00 Weight (Pounds): 167 Objective General Appearance: WD/WN, alert Neck: supple Cardiovascular: regular rhythm Respiratory/Chest: chest wall non-tender, lungs clear, normal breath sounds Abdomen: normal bowel sounds, non tender, soft, no organomegaly Edema: no edema noted Leg (L), no edema noted Leg (R) Edema: trace edema Neurologic: disoriented, unresponsive, aphasia Skin: normal pigmentation Assessment/Plan Problem List: (1) Pneumonia ICD Codes: J18.9 - Pneumonia, unspecified organism SNOMED: 888258534, 168949235, 038029536 (2) UTI (urinary tract infection) ICD Codes: N39.0 - Urinary tract infection, site not specified SNOMED: 34084535, 424050696, 666929412 (3) Respiratory failure ICD Codes: J96.90 - Respiratory failure, unspecified, unspecified whether with hypoxia or hypercapnia SNOMED: 421439151 Status: stable, progressing Assessment/Plan: iv abx follow up cultures vent support wean per pulm resp rx tube feeds follow up cultures ivf dvt/stress ulcer prophylaxis skin care turn q2 full code per family Paulino Reyes MD Sep 13, 2020 11:28
--- NOTE | 2020-09-13 12:20 | NUR ---
NURSE NOTES: Tube feeds increased to goal , 50mL/hr; no residual noted. Pt tolerating well. Pt turned and repositioned. No distress noted at this time.
--- NOTE | 2020-09-13 13:28 | NUR ---
NURSE NOTES: Heparin Subq held this afternoon d/t hematuria. Platelets trending down. No other signs of bleeding noted.
--- NOTE | 2020-09-13 13:38 | NUR ---
RADIOLOGY DEPT., CHEST X-RAY DONE.-P.DYE
--- NOTE | 2020-09-13 13:42 | Diagnostic Imaging Report ---
Indication: Abnormal chest sounds, dyspnea Technique: One view of the chest Comparison: 09/12/2020 post PICC radiograph Findings: Again demonstrated is retrocardiac consolidation and left-sided pleural fluid. The left upper lung, right lung and pleural space are clear. Heart size is normal. There is an orogastric tube in place, proximal port of which projects at or just above the gastroesophageal junction. Left chest pacemaker, right arm PICC, endotracheal tube remain. 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 Advancement recommended. This finding was reported to ICU charge nurse Lianne at the time of interpretation Other stable findings as reported
--- NOTE | 2020-09-13 14:25 | NUR ---
NURSE NOTES: Tube feeds on hold until OGT placement confirmation via KUB
--- NOTE | 2020-09-13 14:25 | NUR ---
NURSE NOTES: OGT advanced to 60cm as advised by Dr Horne, radiologist.
--- NOTE | 2020-09-13 15:30 | Consultation ---
DATE OF CONSULTATION: 09/13/2020 INFECTIOUS DISEASES CONSULTATION CONSULTING PHYSICIAN: Nicola Cisse MD. REFERRING PHYSICIAN: Slick Desai MD. REASON FOR CONSULTATION: Septic shock. HISTORY OF PRESENTING ILLNESS: This is an 89-year-old gentleman with history of asthma, COPD, cardiovascular disease, aspiration pneumonia, pacemaker placement, who came in from the custodial facility with hypoxia as well as hypotension. He has been intubated, started on pressors, and he was found to have a pneumonia. An Infectious Diseases consultation has been obtained for antibiotics. PAST MEDICAL HISTORY: 1. History of COPD. 2. Asthma. 3. Atherosclerotic cardiovascular disease. 4. Aspiration pneumonia. 5. Pacemaker placement. 6. DJD. 7. Spinal stenosis. 8. Pancreatitis. 9. Cholangitis. 10. Peptic ulcer disease. 11. Parkinson's disease. 12. Atrial fibrillation. SOCIAL HISTORY: No history of smoking, alcohol, or drug use. FAMILY HISTORY: Unknown. REVIEW OF SYSTEMS: Unable to obtain currently. MEDICATIONS: As an inpatient, she is on levothyroxine, Protonix, Flomax, chlorhexidine gluconate, montelukast, carbidopa levodopa, vancomycin, cefepime, subcutaneous heparin. ALLERGIES: 1. Amiodarone. 2. Levaquin. 3. Penicillin. PHYSICAL EXAMINATION: VITAL SIGNS: Temperature of 98.5, T-max of 98.5. HEENT: The patient is intubated. NECK: Supple. No adenopathy. No JVD. CARDIOVASCULAR: Regular rate and rhythm. No murmurs. LUNGS: Clear to auscultation bilaterally. No crackles. No wheezes. ABDOMEN: Soft and nontender. No organomegaly. EXTREMITIES: No cyanosis, no clubbing, no edema. LABORATORY AND DIAGNOSTIC DATA: White count 6.6, white count on 09/11/2020 was 15.6, hemoglobin 12.4, hematocrit 36.9, MCV 86, platelet count of 126, neutrophils of 78%. Sodium 137, potassium 3.5, chloride 107, bicarb 20, BUN 23, creatinine 0.6, glucose 216, calcium 7.3. Total bilirubin 0.4, AST 19, ALT less than 6, alkaline phosphatase 89. Beta natriuretic peptide 2775. Total protein 5.5, albumin 1.7. Lipase of 258. CK of 1477, CK-MB of 2.2. UA is showing 30 to 40 white cells. Sputum culture showing gram-negative rods and normal willis as well as Marifer albicans. Rectal swab was negative for VRE. Nasal swab was negative for MRSA. Urine cultures from 09/10/2020 growing diphtheroids. On 09/10/2020 blood cultures growing coagulase-negative Staph. On 09/10/2020 COVID-19 was negative. Chest x-ray is showing left lower lobe hazy opacity likely represents pleural effusion with atelectasis. ASSESSMENT: This is an 89-year-old gentleman with history of Parkinson disease, degenerative disk disease, atrial fibrillation, cardiovascular disease, asthma, and COPD, who comes in and is found to have. 1. Septic shock. 2. Gram-negative pneumonia. His COVID-19 test is negative. 3. Positive blood cultures with coagulase-negative Staph is negative. 4. Parkinson's disease. 5. Cardiovascular disease. 6. Respiratory failure. 7. Leukocytosis is improving. PLAN: 1. Continue IV vancomycin and cefepime for now. 2. We will follow up cultures and adjust antibiotics accordingly. I would like to thank, Dr. Slick Desai, for this consultation. Nicola Cisse M.D. DR: Wes JOB#: [id number] CC: Slick Desai M.D.
--- NOTE | 2020-09-13 15:40 | Diagnostic Imaging Report ---
Indication: Post NG tube position Technique: One view of the abdomen Comparison: Chest radiograph one hour earlier Findings: Interim advancement of orogastric tube, tip now projected at the level gastric body. Impression: Improved and now satisfactory orogastric tube position
[2020-09-13] MEDS: Montelukast 10mg tablet ORAL SCH (16:30)
--- NOTE | 2020-09-13 16:50 | NUR ---
NURSE NOTES: Pt's daughter visiting from outside pt's door. Updated her on pt's current condition and answered her questions. Pt ;aying in bed in semi fowlers position, no distress noted.
--- NOTE | 2020-09-13 17:15 | NUR ---
NURSE NOTES: Pt fully cleaned and linens changed. Pt had a large brown formed BM. Tube feeds restarted after getting confirmation that OGT was in the stomach. running @ 50mL/hr.
--- NOTE | 2020-09-13 19:08 | NUR ---
NURSE HAND-OFF REPORT: Latest Vital Signs: Temperature 98.3 , Pulse 72 , B/P 138 /68 , Respiratory Rate 16 , O2 SAT 100 , Mechanical Ventilator, FiO2 40% . Vital Sign Comment: EKG Rhythm: A-Paced Rhythm change?: N MD Notified?: - MD Response: Latest Swartz Fall Score: 70 Fall Risk: High Risk Safety Measures: Call light Within Reach, Bed Alarm Zone 1, Side Rails Side Rails x2, Bed position Low and Locked. Fall Precautions: Door Sign Report given to DAYO Feliz and DAYO Ibrahim.
--- NOTE | 2020-09-13 19:13 | NUR ---
Received report from DAYO Nieves. Pt is resting in bed, not in distress, intubated and tolerating vent setting of AC 14, TV 500, PEEP 5, and 40% FiO2 with O2 saturation of 99%. A-Paced in the employment manager. OGT intact and patent running Glucerna 1.5 @ 40cc/hr. Howe catheter is intact and patent draining yellowish urine. Peripheral IV is in left Wrist 22G, and PICC line is in right Upper arm are both intact and patent. Bed is in lowest position with head of bed is elevated, call light is within reached, bed alarms are on. Fall and aspiration precautions are reinforced. Will closely monitor pt. Will continue with plan of care.
--- NOTE | 2020-09-13 19:28 | General Progress Note ---
Subjective Allergies: Coded Allergies: AMIODARONE (Verified Allergy, Unknown, 09/10/20) LEVOFLOXACIN (Verified Allergy, Unknown, 09/10/20) PENICILLINS (Verified Allergy, Unknown, 09/10/20) Subjective above noted d/w staff pharmacist tolerating TF Objective Last 24 Hour Vital Signs Date Time Temp Pulse Resp B/P (MAP) Pulse Ox O2 Delivery O2 Flow Rate FiO2 09/13/20 19:00 72 16 138/68 (91) 100 09/13/20 18:30 70 15 132/61 (84) 100 09/13/20 18:00 98.3 68 22 130/63 (85) 98 09/13/20 18:00 68 22 130/63 (85) 98 09/13/20 17:00 69 19 131/67 (88) 100 09/13/20 16:00 65 20 118/58 (78) 99 09/13/20 16:00 89 09/13/20 16:00 Mechanical Ventilator 09/13/20 15:00 76 23 40 09/13/20 15:00 98.3 82 18 122/64 (83) 100 09/13/20 14:00 69 18 139/60 (86) 100 09/13/20 13:00 72 19 135/63 (87) 100 09/13/20 12:00 73 09/13/20 12:00 74 19 130/62 (84) 100 09/13/20 12:00 Mechanical Ventilator 09/13/20 11:00 79 20 132/72 (92) 100 09/13/20 10:40 68 35 40 40 09/13/20 10:39 99 09/13/20 10:00 40 09/13/20 10:00 68 28 137/61 (86) 100 09/13/20 09:00 67 18 126/60 (82) 100 09/13/20 08:00 Mechanical Ventilator 09/13/20 08:00 98.5 63 21 134/61 (85) 100 09/13/20 08:00 73 09/13/20 08:00 40 09/13/20 07:30 60 17 40 09/13/20 07:00 60 18 129/57 (81) 100 09/13/20 06:30 64 20 09/13/20 06:00 66 19 117/56 (76) 100 10/13/20 05:30 65 18 129/60 (83) 100 09/13/20 05:00 64 20 128/61 (83) 100 09/13/20 04:30 62 18 125/59 (81) 100 09/13/20 04:00 98.3 67 20 115/55 (75) 100 09/13/20 04:00 69 09/13/20 04:00 40 09/13/20 04:00 Mechanical Ventilator 09/13/20 03:30 74 20 40 09/13/20 03:00 62 18 112/56 (74) 100 09/13/20 02:00 66 18 109/58 (75) 100 09/13/20 01:00 66 17 107/57 (74) 100 09/13/20 00:00 Mechanical Ventilator 09/13/20 00:00 98.6 68 17 104/63 (77) 100 09/13/20 00:00 69 09/13/20 00:00 40 09/12/20 23:19 70 19 40 09/12/20 23:00 69 19 114/17 (49) 100 09/12/20 22:00 68 19 114/52 (72) 98 09/12/20 21:00 73 21 115/55 (75) 100 09/12/20 20:00 40 09/12/20 20:00 98.1 60 17 111/57 (75) 98 09/12/20 20:00 Mechanical Ventilator 09/12/20 20:00 62 09/12/20 19:30 70 16 40 Intake and Output 09/12/20 09/13/20 19:00 07:00 Intake Total 1528.329 ml 1435 ml Output Total 435 ml 415 ml Balance 1093.329 ml 1020 ml Intake IV Total 1328.329 ml 955 ml Tube Feeding 200 ml 480 ml Output Urine Total 435 ml 415 ml Laboratory Tests 09/13/20 03:50: White Blood Count 8.6, Red Blood Count 4.28L, Hemoglobin 12.4L, Hematocrit 36.9L , Mean Corpuscular Volume 86, Mean Corpuscular Hemoglobin 29.0, Mean Corpuscular Hemoglobin Concent 33.6, Red Cell Distribution Width 13.3, Platelet Count 126L, Mean Platelet Volume 7.7, Neutrophils (%) (Auto) 78.4H, Lymphocytes (%) (Auto) 10.0L, Monocytes (%) (Auto) 7.4, Eosinophils (%) (Auto) 1.9, Basophils (%) (Auto) 2.3H, Sodium Level 137, Potassium Level 3.5, Chloride Level 107, Carbon Dioxide Level 20L, Anion Gap 10, Blood Urea Nitrogen 23H, Creatinine 0.6, Estimat Glomerular Filtration Rate > 60, Glucose Level 216H, Calcium Level 7.3L, Magnesium Level 2.2, Total Bilirubin 0.4, Aspartate Amino Transf (AST/SGOT) 19, Alanine Aminotransferase (ALT/SGPT) < 6L, Alkaline Phosphatase 89, Pro-B-Type Natriuretic Peptide 2775H, Total Protein 5.5L, Albumin 1.7L, Globulin 3.8, Albumin/Globulin Ratio 0.4L Height (Feet): 5 Height (Inches): 8.00 Weight (Pounds): 167 Objective Debilitated woman seen in ICU Intubated resting comfortably Abdomen non distended Assessment/Plan Status: stable, progressing Assessment/Plan: Assessment - minimal anemia - resp failure - DJD spine, spinal stenosis - Pancreatitis - PUD - Atrial fib - off anticoagulation - History of degenerative disc disease, spinal stenosis Recommendations - continue TF - vent care - follow labs - elevate HOB - x Cece Garrison MD Sep 13, 2020 19:28
[2020-09-13] MEDS: Tamsulosin 0.4mg cap ORAL SCH (20:33)
[2020-09-13] MEDS: Dyna-Hex 2% Top Sol 2oz TOPIC SCH (20:33)
--- NOTE | 2020-09-13 21:53 | NUR ---
Medications administered per order, tolerated well. Tolerating tube feeding @ 50cc/hr, no residue. Tolerating vent setting with O2 sat @ 100%. Vital signs are within normal. Addendum: 09/14/20 at 0052 by Alexandria Owen RN RN NURSE NOTES:
[2020-09-14] VITALS (25 sets, daily range): BP systolic 108–157; BP diastolic 49–86
--- NOTE | 2020-09-14 | NUR ---
NURSE NOTES: Pt is sleeping. Not in respiratory distress. NPO after midnight for bronchoscopy in the morning, consent signed. Tolerating vent settings with O2 sat of 100%. Vital signs are stable. Will continue to monitor pt.
--- NOTE | 2020-09-14 00:20 | Cardiology Progress Note ---
Subjective DATE OF SERVICE: Sep 13, 2020 Remains off pressors; still on IVF support BP parameters more stable. Monitor: Paced rhythm +blood cultures noted S/P PICC CXR: (09/13/20) Unchg'd left pleural and parenchymal disease. Objective Last 24 Hour Vital Signs Date Time Temp Pulse Resp B/P (MAP) Pulse Ox O2 Delivery O2 Flow Rate FiO2 09/13/20 23:17 66 18 40 09/13/20 23:00 98.1 75 26 116/56 (76) 100 09/13/20 22:00 68 16 115/56 (75) 100 09/13/20 21:00 70 23 119/58 (78) 100 09/13/20 20:53 40 09/13/20 20:00 71 09/13/20 20:00 74 24 139/67 (91) 100 09/13/20 20:00 97.9 74 24 139/67 (91) 100 09/13/20 20:00 Mechanical Ventilator 09/13/20 19:55 73 15 100 09/13/20 19:28 73 25 40 09/13/20 19:00 72 16 138/68 (91) 100 09/13/20 18:30 70 15 132/61 (84) 100 09/13/20 18:00 98.3 68 22 130/63 (85) 98 09/13/20 18:00 68 22 130/63 (85) 98 09/13/20 17:00 69 19 131/67 (88) 100 09/13/20 16:00 65 20 118/58 (78) 99 09/13/20 16:00 89 09/13/20 16:00 Mechanical Ventilator 09/13/20 15:00 76 23 40 09/13/20 15:00 98.3 82 18 122/64 (83) 100 09/13/20 14:00 69 18 139/60 (86) 100 09/13/20 13:00 72 19 135/63 (87) 100 09/13/20 12:00 73 09/13/20 12:00 74 19 130/62 (84) 100 09/13/20 12:00 Mechanical Ventilator 09/13/20 11:00 79 20 132/72 (92) 100 09/13/20 10:40 68 35 40 40 09/13/20 10:39 99 09/13/20 10:00 40 09/13/20 10:00 68 28 137/61 (86) 100 09/13/20 09:00 67 18 126/60 (82) 100 09/13/20 08:00 Mechanical Ventilator 09/13/20 08:00 98.5 63 21 134/61 (85) 100 09/13/20 08:00 73 09/13/20 08:00 40 09/13/20 07:30 60 17 40 09/13/20 07:00 60 18 129/57 (81) 100 09/13/20 06:30 64 20 09/13/20 06:00 66 19 117/56 (76) 100 09/13/20 05:30 65 18 129/60 (83) 100 09/13/20 05:00 64 20 128/61 (83) 100 09/13/20 04:30 62 18 125/59 (81) 100 09/13/20 04:00 98.3 67 20 115/55 (75) 100 09/13/20 04:00 69 09/13/20 04:00 40 09/13/20 04:00 Mechanical Ventilator 09/13/20 03:30 74 20 40 09/13/20 03:00 62 18 112/56 (74) 100 09/13/20 02:00 66 18 109/58 (75) 100 09/13/20 01:00 66 17 107/57 (74) 100 ROS: unchanged from my evaluation on 09/10/20. HEENT: Orally intubated, Mechanically Ventilated, Thin secretions ET Tube RHYTHM: other - paced LUNGS: bilateral rhonchi CARDIAC: normal rate, regular rhythm, normal S1 and S2 ABDOMEN: normal bowel sounds, non tender, soft, no organomegaly EXTREMITIES: trace edema, other - adequate distal perfusion Laboratory Tests Test 09/13/20 03:50 White Blood Count 8.6 K/UL (4.8-10.8) Red Blood Count 4.28 M/UL (4.70-6.10) L Hemoglobin 12.4 G/DL (14.2-18.0) L Hematocrit 36.9 % (42.0-52.0) L Mean Corpuscular Volume 86 FL (80-99) Mean Corpuscular Hemoglobin 29.0 PG (27.0-31.0) Mean Corpuscular Hemoglobin Concent 33.6 G/DL (32.0-36.0) Red Cell Distribution Width 13.3 % (11.6-14.8) Platelet Count 126 K/UL (150-450) L Mean Platelet Volume 7.7 FL (6.5-10.1) Neutrophils (%) (Auto) 78.4 % (45.0-75.0) H Lymphocytes (%) (Auto) 10.0 % (20.0-45.0) L Monocytes (%) (Auto) 7.4 % (1.0-10.0) Eosinophils (%) (Auto) 1.9 % (0.0-3.0) Basophils (%) (Auto) 2.3 % (0.0-2.0) H Sodium Level 137 MMOL/L (136-145) Potassium Level 3.5 MMOL/L (3.5-5.1) Chloride Level 107 MMOL/L (98-107) Carbon Dioxide Level 20 MMOL/L (21-32) L Anion Gap 10 mmol/L (5-15) Blood Urea Nitrogen 23 mg/dL (7-18) H Creatinine 0.6 MG/DL (0.55-1.30) Estimat Glomerular Filtration Rate > 60 mL/min (>60) Glucose Level 216 MG/DL (74-106) H Calcium Level 7.3 MG/DL (8.5-10.1) L Magnesium Level 2.2 MG/DL (1.8-2.4) Total Bilirubin 0.4 MG/DL (0.2-1.0) Aspartate Amino Transf (AST/SGOT) 19 U/L (15-37) Alanine Aminotransferase (ALT/SGPT) < 6 U/L (12-78) L Alkaline Phosphatase 89 U/L (46-116) Pro-B-Type Natriuretic Peptide 2775 pg/mL (0-125) H Total Protein 5.5 G/DL (6.4-8.2) L Albumin 1.7 G/DL (3.4-5.0) L Globulin 3.8 g/dL Albumin/Globulin Ratio 0.4 (1.0-2.7) L Microbiology Date/Time Source Procedure Growth Status 09/11/20 03:00 Sputum Gram Stain - Final Resulted 09/11/20 03:00 Sputum Culture - Preliminary Gram Negative Bacillus 1 Marifer Albicans Usual Respiratory Katie Resulted Assessment/Plan Assessment/Plan Sepsis with shock UTI Respiratory failure HC associated PNA Pacemaker Ac/chr diastolic CHF Acute myocardial ischemia Lactic acidosis resolved Hypovolemia/dehydration/hypernatremia corrected Severe protein/calorie malnutrition Rhabdomyolysis DC IVF Avoid pressors Abx per ID Vent support; wean as able Nutrition per NGTube DVT prophyl Pacemaker eval if not recently done - await data from SNF. Slick Desai MD Sep 14, 2020 00:20
--- NOTE | 2020-09-14 03:10 | NUR ---
NURSE NOTES: Pt is resting, not in distress. Vital signs are stable. Tolerating vent settings with O2 saturation @ 100%. Complete bed bath given, and bed linens changed. Wound dressings changed. Pt is turned and repositioned. Bilateral upper and lower extremities elevated. Head of bed in semi-kruse position. Oral care and suctioning done. Will continue to monitor pt. Will continue with plan of care.
[2020-09-14] MEDS: Cefepime HCl 1 GM in D5W 55 ML IVPB SCH ×2 (04:09→16:19)
[2020-09-14] MEDS: Heparin 5000 units/ml inj SUBQ SCH (06:00)
[2020-09-14] MEDS: Vancomycin 1.25gm/NS Premix q24h IVPB SCH (06:10)
--- NOTE | 2020-09-14 06:53 | General Progress Note ---
Subjective ROS Limited/Unobtainable: Yes Constitutional: Reports: malaise, weakness HEENT: Reports: no symptoms Cardiovascular: Reports: no symptoms Respiratory: Reports: shortness of breath, sputum Gastrointestinal/Abdominal: Reports: difficulty swallowing Genitourinary: Reports: no symptoms Neurologic/Psychiatric: Reports: pre-existing deficit Endocrine: Reports: no symptoms Hematologic/Lymphatic: Reports: no symptoms Allergies: Coded Allergies: AMIODARONE (Verified Allergy, Unknown, 09/10/20) LEVOFLOXACIN (Verified Allergy, Unknown, 09/10/20) PENICILLINS (Verified Allergy, Unknown, 09/10/20) All Systems: reviewed and negative except above Subjective no events. stable overnight. no fevers. +secretions. failed wean yesterday- last only 30 mins. poorly responsive. Objective Last 24 Hour Vital Signs Date Time Temp Pulse Resp B/P (MAP) Pulse Ox O2 Delivery O2 Flow Rate FiO2 09/14/20 06:30 66 14 09/14/20 06:00 61 15 133/57 (82) 100 09/14/20 05:00 66 14 132/57 (82) 100 09/14/20 04:00 69 16 114/61 (78) 100 09/14/20 04:00 Mechanical Ventilator 09/14/20 04:00 69 09/14/20 03:16 70 15 40 09/14/20 03:00 98.2 79 15 136/62 (86) 100 09/14/20 02:00 60 18 140/69 (92) 100 09/14/20 01:00 65 23 119/57 (77) 100 09/14/20 00:00 64 20 139/62 (87) 100 09/14/20 00:00 Mechanical Ventilator 09/14/20 00:00 71 09/13/20 23:17 66 18 40 09/13/20 23:00 98.1 75 26 116/56 (76) 100 09/13/20 22:00 68 16 115/56 (75) 100 09/13/20 21:00 70 23 119/58 (78) 100 09/13/20 20:53 40 09/13/20 20:00 71 09/13/20 20:00 74 24 139/67 (91) 100 09/13/20 20:00 97.9 74 24 139/67 (91) 100 10/13/20 20:00 Mechanical Ventilator 09/13/20 19:55 73 15 100 09/13/20 19:28 73 25 40 09/13/20 19:00 72 16 138/68 (91) 100 09/13/20 18:30 70 15 132/61 (84) 100 09/13/20 18:00 98.3 68 22 130/63 (85) 98 09/13/20 18:00 68 22 130/63 (85) 98 09/13/20 17:00 69 19 131/67 (88) 100 09/13/20 16:00 65 20 118/58 (78) 99 09/13/20 16:00 89 09/13/20 16:00 Mechanical Ventilator 09/13/20 15:00 76 23 40 09/13/20 15:00 98.3 82 18 122/64 (83) 100 09/13/20 14:00 69 18 139/60 (86) 100 09/13/20 13:00 72 19 135/63 (87) 100 09/13/20 12:00 73 09/13/20 12:00 74 19 130/62 (84) 100 09/13/20 12:00 Mechanical Ventilator 09/13/20 11:00 79 20 132/72 (92) 100 09/13/20 10:40 68 35 40 40 09/13/20 10:39 99 09/13/20 10:00 40 09/13/20 10:00 68 28 137/61 (86) 100 09/13/20 09:00 67 18 126/60 (82) 100 09/13/20 08:00 Mechanical Ventilator 09/13/20 08:00 98.5 63 21 134/61 (85) 100 09/13/20 08:00 73 09/13/20 08:00 40 09/13/20 07:30 60 17 40 09/13/20 07:00 60 18 129/57 (81) 100 Intake and Output 09/13/20 09/14/20 19:00 07:00 Intake Total 1658.750 ml 1190 ml Output Total 460 ml 455 ml Balance 1198.750 ml 735 ml Intake IV Total 1168.750 ml 880 ml Tube Feeding 330 ml 250 ml Other 160 ml 60 ml Output Urine Total 460 ml 455 ml # Bowel Movements 1 Laboratory Tests 09/14/20 04:50: Vancomycin Level Trough 14.2H Height (Feet): 5 Height (Inches): 8.00 Weight (Pounds): 167 Objective General Appearance: WD/WN, alert Neck: supple Cardiovascular: regular rhythm Respiratory/Chest: chest wall non-tender, lungs clear, normal breath sounds Abdomen: normal bowel sounds, non tender, soft, no organomegaly Edema: no edema noted Leg (L), no edema noted Leg (R) Edema: trace edema Neurologic: disoriented, unresponsive, aphasia Skin: normal pigmentation Assessment/Plan Problem List: (1) Pneumonia ICD Codes: J18.9 - Pneumonia, unspecified organism SNOMED: 260705182, 811814200, 311557544 (2) UTI (urinary tract infection) ICD Codes: N39.0 - Urinary tract infection, site not specified SNOMED: 58139319, 701627634, 174060311 (3) Respiratory failure ICD Codes: J96.90 - Respiratory failure, unspecified, unspecified whether with hypoxia or hypercapnia SNOMED: 345803134 Status: stable, progressing Assessment/Plan: iv abx folllow up pending sputum cultures vent support wean per pulm bronch today resp rx tube feeds ivf dvt/stress ulcer prophylaxis skin care turn q2 full code per family Paulino Reyes MD Sep 14, 2020 06:53
--- NOTE | 2020-09-14 07:19 | NUR ---
NURSE HAND-OFF REPORT: Important Events on Shift:none Patient Status: stable, full code Diet: NPO for bronchoscopy Pending Orders: N Pending Results/Labs:N Pending MD notification:N Latest Vital Signs: Temperature 98.2 , Pulse 67 , B/P 152 /59 , Respiratory Rate 14 , O2 SAT 100 , Mechanical Ventilator, O2 Flow Rate 15.0 . Vital Sign Comment: stable EKG Rhythm: A-Paced Rhythm change?: N MD Notified?: - MD Response: Latest Swartz Fall Score: 70 Fall Risk: High Risk Safety Measures: Call light Within Reach, Bed Alarm Zone 1, Side Rails Side Rails x2, Bed position Low and Locked. Fall Precautions:Y Door Sign Report given to DAYO Santos.
--- NOTE | 2020-09-14 07:20 | NUR ---
NURSE NOTES: Pt received from Fatimah RN. Pt is awake in bed, opens eyes spontaneously, unable to follow simple commands--however, able to make eye contact when called by name. pupils 3 mm with sluggish rxn to light. Pt in paced rhythm to teletypesetter monitor (left chest pace maker noted). 2+ radial and dorsalis pedis pulses present. 2+ pitting edema noted to BUE. Pt is mechanically ventilated with 7.5 ETT noted 24 cm at the lip with the following settings: AC 14 TV 500 FiO2 40% Peep 5. Lung lobes noted with rhonchi upon auscultation. Abd appears round and distended with active bowel sounds to all quadrant. OGT noted clamped at this time - TF (Glucerna 1.5) resumed at 50 cc/hr - no gastric residuals notes. Verified pt is not NPO - bronchoscopy ordered in error. F/C noted draining light lisandra urine. Per shift supervisor film processing RN, hematuria observed during evening - Dr Reyes at bedside and made aware - order received to d/c subcut heparin and place SCDs on BLE without need for venous duplex at this time. Skin alterations noted. Pt has a LEXII PICC with dry and intact dressing running 1/2 NS at 75 cc/hr. Bed in lowest position, alarm on, side rails up x 2, call light within reach. Will continue to monitor.
[2020-09-14 07:48] LABS: BASOPHILS % (AUTO) 1.4 % (0.0-2.0); EOSINOPHILS % (AUTO) 3.2 % (0.0-3.0); HEMATOCRIT 28.9 % (42.0-52.0); HEMOGLOBIN 10.1 G/DL (14.2-18.0); LYMPHOCYTES % (AUTO) 10.6 % (20.0-45.0); MEAN CORPUSCULAR VOLUME 85 FL (80-99); MONOCYTES % (AUTO) 7.7 % (1.0-10.0); PLATELET COUNT 117 K/UL (150-450); RED BLOOD COUNT 3.41 M/UL (4.70-6.10); WHITE BLOOD COUNT 6.5 K/UL (4.8-10.8)
--- NOTE | 2020-09-14 08:00 | NUR ---
NURSE NOTES: Pt repositioned and cleaned; oral care provided. Afebrile. No acute distress noted.
[2020-09-14 08:02] LABS: ALANINE AMINOTRANSFERASE < 6 U/L (12-78); ALBUMIN 1.5 G/DL (3.4-5.0); ALBUMIN/GLOBULIN RATIO 0.6 (1.0-2.7); ALKALINE PHOSPHATASE 81 U/L (46-116); ANION GAP 6 mmol/L (5-15); ASPARTATE AMINO TRANSFERASE 12 U/L (15-37); BILIRUBIN,TOTAL 0.9 MG/DL (0.2-1.0); BLOOD UREA NITROGEN 15 mg/dL (7-18); CALCIUM 6.5 MG/DL (8.5-10.1); CARBON DIOXIDE 23 MMOL/L (21-32); CHLORIDE 110 MMOL/L (98-107); CREATININE 0.8 MG/DL (0.55-1.30); SODIUM 139 MMOL/L (136-145)
[2020-09-14] MEDS: Levodopa/Carbidopa 25/100 tab ORAL SCH ×3 (08:27→17:12)
[2020-09-14] MEDS: Pantoprazole Inj IVP SCH (08:27)
--- NOTE | 2020-09-14 09:00 | NUR ---
NURSE NOTES: Pt seen by Dr Garrison and Dr Mark.
--- NOTE | 2020-09-14 09:43 | NUR ---
NURSE NOTES: Weaning trial initiated per RT Arianna. Current settings: PS 8 Peep 5 FiO2 40%. Will monitor.
--- NOTE | 2020-09-14 10:00 | NUR ---
NURSE NOTES: Pt repositioned. Appears to tolerate weaning. RSBI<100 spO2 98% RR 16 Breathing unlabored. ABGs will be drawn shortly.
--- NOTE | 2020-09-14 10:16 | NUR ---
RESPIRATORY THERAPY NOTES: Began weaning patient at 0943. Started weaning on PS +8 PEEP +5 FIO2 40%. RSBI 81, HR 61, SATS 100%, SPON RR 25, SPON VT 313. Will draw ABG after 30 minutes.
--- NOTE | 2020-09-14 10:32 | Critical Care Progress Note ---
Assessment/Plan Assessment/Plan ASSESSMENT: Acute respiratory failure due to aspiration pneumonia, urinary tract infection, pacemaker,leukocytosis with possible sepsis , atrial fibrillation, asthma, UTI, severe PCM PLAN care noted IV antibiotics respiratory care Ventilatory support SNF meds supportive care suction DVT prophylaxis no wean oxygen therapy as needed prognosis guarded medications/laboratory data/nursing notes/ICU care reviewed in detail note reviewed and edited care discussed with RN and RT ICU time spent >90 minutes Critical Care - Subjective Interval Events: poorly responsive did not tolerate wean yesterday d/w RN at bedside ROS Limited/Unobtainable: Yes Condition: critical EKG Rhythm: Sinus Rhythm I&O: Intake and Output 09/13/20 09/14/20 19:00 07:00 Intake Total 1658.750 ml 1265 ml Output Total 460 ml 500 ml Balance 1198.750 ml 765 ml Intake IV Total 1168.750 ml 955 ml Tube Feeding 330 ml 250 ml Other 160 ml 60 ml Output Urine Total 460 ml 500 ml # Bowel Movements 1 Critical Care - Objective ET-Tube: 7.5 ET Position: 24 Last 24 Hour Vital Signs Date Time Temp Pulse Resp B/P (MAP) Pulse Ox O2 Delivery O2 Flow Rate FiO2 09/14/20 10:00 63 25 141/61 (87) 100 09/14/20 09:49 100 09/14/20 09:00 63 15 145/62 (89) 100 09/14/20 08:00 97.8 72 15 150/62 (91) 100 09/14/20 08:00 60 09/14/20 07:29 60 14 40 09/14/20 07:00 67 14 152/59 (90) 100 09/14/20 06:30 66 14 09/14/20 06:00 61 15 133/57 (82) 100 09/14/20 05:00 66 14 132/57 (82) 100 09/14/20 04:00 69 16 114/61 (78) 100 09/14/20 04:00 Mechanical Ventilator 09/14/20 04:00 69 09/14/20 03:16 70 15 40 09/14/20 03:00 98.2 79 15 136/62 (86) 100 09/14/20 02:00 60 18 140/69 (92) 100 09/14/20 01:00 65 23 119/57 (77) 100 09/14/20 00:00 64 20 139/62 (87) 100 09/14/20 00:00 Mechanical Ventilator 09/14/20 00:00 71 09/13/20 23:17 66 18 40 09/13/20 23:00 98.1 75 26 116/56 (76) 100 09/13/20 22:00 68 16 115/56 (75) 100 09/13/20 21:00 70 23 119/58 (78) 100 09/13/20 20:53 40 09/13/20 20:00 71 09/13/20 20:00 74 24 139/67 (91) 100 09/13/20 20:00 97.9 74 24 139/67 (91) 100 09/13/20 20:00 Mechanical Ventilator 09/13/20 19:55 73 15 100 09/13/20 19:28 73 25 40 09/13/20 19:00 72 16 138/68 (91) 100 09/13/20 18:30 70 15 132/61 (84) 100 09/13/20 18:00 98.3 68 22 130/63 (85) 98 09/13/20 18:00 68 22 130/63 (85) 98 09/13/20 17:00 69 19 131/67 (88) 100 09/13/20 16:00 65 20 118/58 (78) 99 09/13/20 16:00 89 09/13/20 16:00 Mechanical Ventilator 09/13/20 15:00 76 23 40 09/13/20 15:00 98.3 82 18 122/64 (83) 100 09/13/20 14:00 69 18 139/60 (86) 100 09/13/20 13:00 72 19 135/63 (87) 100 09/13/20 12:00 73 09/13/20 12:00 74 19 130/62 (84) 100 09/13/20 12:00 Mechanical Ventilator 09/13/20 11:00 79 20 132/72 (92) 100 09/13/20 10:40 68 35 40 40 09/13/20 10:39 99 Objective: WDWN NAD orally intubated ETT reduced breath sounds bilaterally without rhonchi or wheeze [id number] without MRG NABS nontender no HSM no CCE nonfocal poor LOC feeding tube in place skin noted Kyle Mark MD Sep 14, 2020 10:32
--- NOTE | 2020-09-14 10:45 | NUR ---
NURSE NOTES: Pt seen by Dr Cisse - lab results for today reviewed.
--- NOTE | 2020-09-14 11:24 | Infectious Diseases Prog Note ---
Assessment/Plan Assessment/Plan antibiotics : vancomycin iv, cefepime A 1, citrobacter pneumonia COVID 19 negative 2. + blood cultures with coag neg staph likely contaminated 3. respiratory failure 4. leucocytosis resolved 5. Parkinsons disease P 1. continue cefepime 2. d/c iv vancomycin 3. will follow up cultures Subjective ROS Limited/Unobtainable: Yes Allergies: Coded Allergies: AMIODARONE (Verified Allergy, Unknown, 09/10/20) LEVOFLOXACIN (Verified Allergy, Unknown, 09/10/20) PENICILLINS (Verified Allergy, Unknown, 09/10/20) Objective Last 24 Hour Vital Signs Date Time Temp Pulse Resp B/P (MAP) Pulse Ox O2 Delivery O2 Flow Rate FiO2 09/14/20 11:00 71 24 141/62 (88) 100 09/14/20 10:00 63 25 141/61 (87) 100 09/14/20 09:49 100 09/14/20 09:00 63 15 145/62 (89) 100 09/14/20 08:00 97.8 72 15 150/62 (91) 100 09/14/20 08:00 60 09/14/20 08:00 Mechanical Ventilator 09/14/20 07:29 60 14 40 09/14/20 07:00 67 14 152/59 (90) 100 09/14/20 06:30 66 14 09/14/20 06:00 61 15 133/57 (82) 100 09/14/20 05:00 66 14 132/57 (82) 100 09/14/20 04:00 69 16 114/61 (78) 100 09/14/20 04:00 Mechanical Ventilator 09/14/20 04:00 69 09/14/20 03:16 70 15 40 09/14/20 03:00 98.2 79 15 136/62 (86) 100 09/14/20 02:00 60 18 140/69 (92) 100 09/14/20 01:00 65 23 119/57 (77) 100 09/14/20 00:00 64 20 139/62 (87) 100 09/14/20 00:00 Mechanical Ventilator 09/14/20 00:00 71 09/13/20 23:17 66 18 40 09/13/20 23:00 98.1 75 26 116/56 (76) 100 09/13/20 22:00 68 16 115/56 (75) 100 09/13/20 21:00 70 23 119/58 (78) 100 09/13/20 20:53 40 09/13/20 20:00 71 09/13/20 20:00 74 24 139/67 (91) 100 09/13/20 20:00 97.9 74 24 139/67 (91) 100 09/13/20 20:00 Mechanical Ventilator 09/13/20 19:55 73 15 100 09/13/20 19:28 73 25 40 09/13/20 19:00 72 16 138/68 (91) 100 09/13/20 18:30 70 15 132/61 (84) 100 09/13/20 18:00 98.3 68 22 130/63 (85) 98 09/13/20 18:00 68 22 130/63 (85) 98 09/13/20 17:00 69 19 131/67 (88) 100 09/13/20 16:00 65 20 118/58 (78) 99 09/13/20 16:00 89 09/13/20 16:00 Mechanical Ventilator 09/13/20 15:00 76 23 40 09/13/20 15:00 98.3 82 18 122/64 (83) 100 09/13/20 14:00 69 18 139/60 (86) 100 09/13/20 13:00 72 19 135/63 (87) 100 09/13/20 12:00 73 09/13/20 12:00 74 19 130/62 (84) 100 09/13/20 12:00 Mechanical Ventilator Height (Feet): 5 Height (Inches): 8.00 Weight (Pounds): 167 HEENT: other - intubated Respiratory/Chest: lungs clear Cardiovascular: normal rate, regular rhythm, no gallop/murmur Abdomen: soft, non tender Extremities: other - + edema, right arm PICC Laboratory Tests Test 09/14/20 04:50 09/14/20 07:30 09/14/20 10:30 Vancomycin Level Trough 14.2 ug/mL (5.0-12.0) H White Blood Count 6.5 K/UL (4.8-10.8) Red Blood Count 3.41 M/UL (4.70-6.10) L Hemoglobin 10.1 G/DL (14.2-18.0) L Hematocrit 28.9 % (42.0-52.0) L Mean Corpuscular Volume 85 FL (80-99) Mean Corpuscular Hemoglobin 29.7 PG (27.0-31.0) Mean Corpuscular Hemoglobin Concent 35.0 G/DL (32.0-36.0) Red Cell Distribution Width 13.0 % (11.6-14.8) Platelet Count 117 K/UL (150-450) L Mean Platelet Volume 7.9 FL (6.5-10.1) Neutrophils (%) (Auto) 77.0 % (45.0-75.0) H Lymphocytes (%) (Auto) 10.6 % (20.0-45.0) L Monocytes (%) (Auto) 7.7 % (1.0-10.0) Eosinophils (%) (Auto) 3.2 % (0.0-3.0) H Basophils (%) (Auto) 1.4 % (0.0-2.0) Sodium Level 139 MMOL/L (136-145) Potassium Level 3.0 MMOL/L (3.5-5.1) L Chloride Level 110 MMOL/L (98-107) H Carbon Dioxide Level 23 MMOL/L (21-32) Anion Gap 6 mmol/L (5-15) Blood Urea Nitrogen 15 mg/dL (7-18) Creatinine 0.8 MG/DL (0.55-1.30) Estimat Glomerular Filtration Rate > 60 mL/min (>60) Glucose Level 163 MG/DL (74-106) H Calcium Level 6.5 MG/DL (8.5-10.1) L Total Bilirubin 0.9 MG/DL (0.2-1.0) Aspartate Amino Transf (AST/SGOT) 12 U/L (15-37) L Alanine Aminotransferase (ALT/SGPT) < 6 U/L (12-78) L Alkaline Phosphatase 81 U/L (46-116) Total Protein 4.2 G/DL (6.4-8.2) L Albumin 1.5 G/DL (3.4-5.0) L Globulin 2.7 g/dL Albumin/Globulin Ratio 0.6 (1.0-2.7) L Arterial Blood pH 7.438 (7.350-7.450) Arterial Blood Partial Pressure CO2 32.7 mmHg (35.0-45.0) L Arterial Blood Partial Pressure O2 144.0 mmHg (75.0-100.0) H Arterial Blood HCO3 21.6 mmol/L (22.0-26.0) L Arterial Blood Oxygen Saturation 98.6 % (95-100) Arterial Blood Base Excess -1.9 (-2-2) Galileo Test Positive Current Medications Medications (Trade) Dose Ordered Sig/Ryley Route PRN Reason Start Time Stop Time Status Last Admin Dose Admin Carbidopa/Levodopa (Sinemet 25/100) 1 tab THREE TIMES A DAY ORAL 09/11/20 13:00 10/11/20 12:59 09/14/20 08:27 Cefepime HCl 1 gm/ Dextrose 55 ml @ 110 mls/hr Q12H IVPB 09/11/20 04:00 09/18/20 03:59 09/14/20 04:09 Chlorhexidine Gluconate (Roselyn-Hex 2%) 1 applic DAILY@2000 TOPIC 09/11/20 20:00 12/10/20 19:59 09/13/20 20:33 Dextrose (Dextrose 50%) 25 ml Q30M PRN IV Hypoglycemia 09/11/20 07:45 12/10/20 07:44 Dextrose (Dextrose 50%) 50 ml Q30M PRN IV Hypoglycemia 09/11/20 07:45 12/10/20 07:44 Levothyroxine Sodium (Synthroid) 88 mcg DAILY@0630 ORAL 09/12/20 06:30 10/12/20 06:29 09/14/20 06:15 Montelukast Sodium (Singulair) 10 mg QPM ORAL 09/11/20 16:30 12/10/20 16:29 09/12/20 16:47 Pantoprazole (Protonix) 40 mg DAILY IVP 09/11/20 22:00 10/11/20 21:59 09/14/20 08:27 Sodium Chloride 1,000 ml @ 75 mls/hr [id number] IV 09/10/20 17:30 10/10/20 17:29 09/14/20 10:00 Tamsulosin HCl (Flomax) 0.4 mg BEDTIME ORAL 09/11/20 21:00 10/11/20 20:59 09/13/20 20:33 Vancomycin HCl (Vanco pharmacy to dose) 1 ea DAILY PRN MISC Per rx protocol 09/10/20 17:45 10/10/20 17:44 Vancomycin/Sodium Chloride 275 ml @ 183.333 mls/hr Q24H IVPB 09/11/20 06:00 09/16/20 05:59 09/14/20 06:10 Nicola Cisse MD Sep 14, 2020 11:24
--- NOTE | 2020-09-14 12:39 | NUR ---
NURSE NOTES: Pt placed back on AC mode - (see RT note).
--- NOTE | 2020-09-14 13:13 | NUR ---
RESPIRATORY THERAPIST NOTES: Weaning ended at 1239. Placed back onto ACVC 14, 500, 40%, +5 due to increased SOB. During weaning RSBI 120, SPON RR >35, SPON VT <200mL. Danielle OSHEA notified.
--- NOTE | 2020-09-14 14:00 | NUR ---
NURSE NOTES: Pt repositioned. No acute distress noted.
[2020-09-14] MEDS ORDERED: 1/2 NS 1000ml IV ONE ×2 (14:13→14:19)
[2020-09-14] MEDS ORDERED: NS 275ml ONE (14:19)
--- NOTE | 2020-09-14 16:00 | NUR ---
NURSE NOTES: Pt repositioned and cleaned. Oral Care provided. Afebrile. No distress noted.
[2020-09-14] MEDS: Montelukast 10mg tablet ORAL SCH (16:18)
--- NOTE | 2020-09-14 19:09 | NUR ---
NURSE HAND-OFF REPORT: Latest Vital Signs: Temperature 98.2 , Pulse 84 , B/P 124 /49 , Respiratory Rate 18 , O2 SAT 100 , Mechanical Ventilator, FiO2 40% . Vital Sign Comment: stable EKG Rhythm: A-Paced Rhythm change?: N MD Notified?: n/a MD Response: n/a Latest Swartz Fall Score: 50 Fall Risk: High Risk Safety Measures: Call light Within Reach, Bed Alarm Zone 1, Side Rails Side Rails x2, Bed position Low and Locked. Fall Precautions: Door Sign Yellow Gown Pt Fall Education Report given to Kahlil RN.
--- NOTE | 2020-09-14 19:12 | NUR ---
NURSE NOTES: Received report from DAYO Santos. Pt is resting in bed, lethargic, but can track and can communicate through facial expressions. No grimace noted and no acute distress. Pt is intubated and tolerating vent setting with O2 sat of 100%. OGT is intact and patent running Glucerna1.5 @ 50cc continous feeding, with 15 ml residual. PICC line on R upper arm is intact and patent. PIV in L wrist is intact and patent. Howe cather is patent draining lisandra colored urine. Skin issues are noted and dressings are intact. Bed is locked and in lowest position. HOB is elevated. Call light is within reached, and bed alarm is on. Will continue to closely monitor the patient. Will continue with the plan of care.
--- NOTE | 2020-09-14 19:24 | Cardiology Progress Note ---
Subjective DATE OF SERVICE: Sep 14, 2020 Remains off pressors; still on IVF support BP parameters remain stable. Monitor: Paced rhythm +blood cultures and multiple +sputum pathogens noted. S/P PICC CXR: (09/13/20) Unchg'd left pleural and parenchymal disease. Objective Last 24 Hour Vital Signs Date Time Temp Pulse Resp B/P (MAP) Pulse Ox O2 Delivery O2 Flow Rate FiO2 09/14/20 19:00 84 18 124/49 (74) 100 09/14/20 18:44 80 14 40 09/14/20 18:00 70 15 149/68 (95) 100 09/14/20 17:00 76 19 129/67 (87) 97 09/14/20 16:00 98.2 69 19 140/82 (101) 100 09/14/20 16:00 76 09/14/20 16:00 Mechanical Ventilator 09/14/20 15:29 76 20 40 09/14/20 15:00 71 18 131/53 (79) 98 09/14/20 14:00 69 19 152/63 (92) 100 09/14/20 13:00 70 16 138/67 (90) 100 09/14/20 12:39 40 09/14/20 12:30 72 25 154/80 (104) 100 09/14/20 12:00 40 09/14/20 12:00 Mechanical Ventilator 09/14/20 12:00 71 09/14/20 12:00 98.4 71 22 157/68 (97) 100 09/14/20 11:20 74 28 40 40 09/14/20 11:00 71 24 141/62 (88) 100 09/14/20 10:00 63 25 141/61 (87) 100 09/14/20 09:49 100 09/14/20 09:43 40 09/14/20 09:00 63 15 145/62 (89) 100 09/14/20 08:00 97.8 72 15 150/62 (91) 100 09/14/20 08:00 60 09/14/20 08:00 Mechanical Ventilator 09/14/20 08:00 40 09/14/20 07:29 60 14 40 09/14/20 07:00 67 14 152/59 (90) 100 09/14/20 06:30 66 14 09/14/20 06:00 61 15 133/57 (82) 100 09/14/20 05:00 66 14 132/57 (82) 100 09/14/20 04:00 69 16 114/61 (78) 100 09/14/20 04:00 Mechanical Ventilator 09/14/20 04:00 69 09/14/20 03:16 70 15 40 09/14/20 03:00 98.2 79 15 136/62 (86) 100 09/14/20 02:00 60 18 140/69 (92) 100 09/14/20 01:00 65 23 119/57 (77) 100 09/14/20 00:00 64 20 139/62 (87) 100 09/14/20 00:00 Mechanical Ventilator 09/14/20 00:00 71 09/13/20 23:17 66 18 40 09/13/20 23:00 98.1 75 26 116/56 (76) 100 09/13/20 22:00 68 16 115/56 (75) 100 09/13/20 21:00 70 23 119/58 (78) 100 09/13/20 20:53 40 09/13/20 20:00 71 09/13/20 20:00 74 24 139/67 (91) 100 09/13/20 20:00 97.9 74 24 139/67 (91) 100 09/13/20 20:00 Mechanical Ventilator 09/13/20 19:55 73 15 100 09/13/20 19:28 73 25 40 ROS: unchanged from my evaluation on 09/10/20. HEENT: Orally intubated, Mechanically Ventilated, Thin secretions ET Tube RHYTHM: other - paced LUNGS: bilateral rhonchi CARDIAC: normal rate, regular rhythm, normal S1 and S2 ABDOMEN: normal bowel sounds, non tender, soft, no organomegaly EXTREMITIES: trace edema, other - adequate distal perfusion Laboratory Tests Test 09/14/20 04:50 09/14/20 07:30 09/14/20 10:30 Vancomycin Level Trough 14.2 ug/mL (5.0-12.0) H White Blood Count 6.5 K/UL (4.8-10.8) Red Blood Count 3.41 M/UL (4.70-6.10) L Hemoglobin 10.1 G/DL (14.2-18.0) L Hematocrit 28.9 % (42.0-52.0) L Mean Corpuscular Volume 85 FL (80-99) Mean Corpuscular Hemoglobin 29.7 PG (27.0-31.0) Mean Corpuscular Hemoglobin Concent 35.0 G/DL (32.0-36.0) Red Cell Distribution Width 13.0 % (11.6-14.8) Platelet Count 117 K/UL (150-450) L Mean Platelet Volume 7.9 FL (6.5-10.1) Neutrophils (%) (Auto) 77.0 % (45.0-75.0) H Lymphocytes (%) (Auto) 10.6 % (20.0-45.0) L Monocytes (%) (Auto) 7.7 % (1.0-10.0) Eosinophils (%) (Auto) 3.2 % (0.0-3.0) H Basophils (%) (Auto) 1.4 % (0.0-2.0) Sodium Level 139 MMOL/L (136-145) Potassium Level 3.0 MMOL/L (3.5-5.1) L Chloride Level 110 MMOL/L (98-107) H Carbon Dioxide Level 23 MMOL/L (21-32) Anion Gap 6 mmol/L (5-15) Blood Urea Nitrogen 15 mg/dL (7-18) Creatinine 0.8 MG/DL (0.55-1.30) Estimat Glomerular Filtration Rate > 60 mL/min (>60) Glucose Level 163 MG/DL (74-106) H Calcium Level 6.5 MG/DL (8.5-10.1) L Total Bilirubin 0.9 MG/DL (0.2-1.0) Aspartate Amino Transf (AST/SGOT) 12 U/L (15-37) L Alanine Aminotransferase (ALT/SGPT) < 6 U/L (12-78) L Alkaline Phosphatase 81 U/L (46-116) Total Protein 4.2 G/DL (6.4-8.2) L Albumin 1.5 G/DL (3.4-5.0) L Globulin 2.7 g/dL Albumin/Globulin Ratio 0.6 (1.0-2.7) L Arterial Blood pH 7.438 (7.350-7.450) Arterial Blood Partial Pressure CO2 32.7 mmHg (35.0-45.0) L Arterial Blood Partial Pressure O2 144.0 mmHg (75.0-100.0) H Arterial Blood HCO3 21.6 mmol/L (22.0-26.0) L Arterial Blood Oxygen Saturation 98.6 % (95-100) Arterial Blood Base Excess -1.9 (-2-2) Galileo Test Positive Assessment/Plan Assessment/Plan Sepsis with shock Hypokalemia UTI Respiratory failure HC associated, polymicrobial PNA Pacemaker Ac/chr diastolic CHF Acute myocardial ischemia Lactic acidosis resolved Hypovolemia/dehydration/hypernatremia corrected Severe protein/calorie malnutrition Rhabdomyolysis Possible bacteremia Potassium suppl; check Mg++ Avoid pressors Abx per ID Vent support; wean as able Nutrition per NGTube DVT prophyl Pacemaker eval not needed; pacemaker recently implanted. Slick Desai MD Sep 14, 2020 19:24
[2020-09-14] MEDS: Dyna-Hex 2% Top Sol 2oz TOPIC SCH (20:06)
[2020-09-14] MEDS: Tamsulosin 0.4mg cap ORAL SCH (20:07)
--- NOTE | 2020-09-14 22:00 | NUR ---
NURSE NOTES: Medications administered per order. Tolerated well. Pt is resting and not in acute distress. No grimacing. Tolerating vent setting with O2 @ 100% Vital signs stable. Tolerating OGT feeding with no residual. Will continue to monitor pt.
--- NOTE | 2020-09-14 22:26 | General Progress Note ---
Subjective Allergies: Coded Allergies: AMIODARONE (Verified Allergy, Unknown, 09/10/20) LEVOFLOXACIN (Verified Allergy, Unknown, 09/10/20) PENICILLINS (Verified Allergy, Unknown, 09/10/20) Subjective above noted d/w air liaison and special staff tolerating TF Objective Last 24 Hour Vital Signs Date Time Temp Pulse Resp B/P (MAP) Pulse Ox O2 Delivery O2 Flow Rate FiO2 09/14/20 22:00 70 17 111/86 (94) 98 09/14/20 21:00 72 16 108/55 (72) 99 09/14/20 20:53 40 09/14/20 20:00 98.6 71 19 135/56 (82) 100 09/14/20 20:00 Mechanical Ventilator 09/14/20 20:00 76 09/14/20 19:00 84 18 124/49 (74) 100 09/14/20 18:44 80 14 40 09/14/20 18:00 70 15 149/68 (95) 100 09/14/20 17:00 76 19 129/67 (87) 97 09/14/20 16:00 98.2 69 19 140/82 (101) 100 09/14/20 16:00 76 09/14/20 16:00 Mechanical Ventilator 09/14/20 15:29 76 20 40 09/14/20 15:00 71 18 131/53 (79) 98 09/14/20 14:00 69 19 152/63 (92) 100 09/14/20 13:00 70 16 138/67 (90) 100 09/14/20 12:39 40 09/14/20 12:30 72 25 154/80 (104) 100 09/14/20 12:00 40 09/14/20 12:00 Mechanical Ventilator 09/14/20 12:00 71 09/14/20 12:00 98.4 71 22 157/68 (97) 100 09/14/20 11:20 74 28 40 40 09/14/20 11:00 71 24 141/62 (88) 100 09/14/20 10:00 63 25 141/61 (87) 100 09/14/20 09:49 100 09/14/20 09:43 40 09/14/20 09:00 63 15 145/62 (89) 100 09/14/20 08:00 97.8 72 15 150/62 (91) 100 09/14/20 08:00 60 09/14/20 08:00 Mechanical Ventilator 09/14/20 08:00 40 09/14/20 07:29 60 14 40 09/14/20 07:00 67 14 152/59 (90) 100 09/14/20 06:30 66 14 09/14/20 06:00 61 15 133/57 (82) 100 09/14/20 05:00 66 14 132/57 (82) 100 09/14/20 04:00 69 16 114/61 (78) 100 09/14/20 04:00 Mechanical Ventilator 09/14/20 04:00 69 09/14/20 03:16 70 15 40 09/14/20 03:00 98.2 79 15 136/62 (86) 100 09/14/20 02:00 60 18 140/69 (92) 100 09/14/20 01:00 65 23 119/57 (77) 100 09/14/20 00:00 64 20 139/62 (87) 100 09/14/20 00:00 Mechanical Ventilator 09/14/20 00:00 71 09/13/20 23:17 66 18 40 09/13/20 23:00 98.1 75 26 116/56 (76) 100 Intake and Output 09/13/20 09/14/20 19:00 07:00 Intake Total 1658.750 ml 1265 ml Output Total 460 ml 500 ml Balance 1198.750 ml 765 ml IV Total 1168.750 ml 955 ml Tube Feeding 330 ml 250 ml Other 160 ml 60 ml Output Urine Total 460 ml 500 ml # Bowel Movements 1 Laboratory Tests 09/14/20 04:50: Vancomycin Level Trough 14.2H 09/14/20 07:30: White Blood Count 6.5, Red Blood Count 3.41L, Hemoglobin 10.1L, Hematocrit 28.9L , Mean Corpuscular Volume 85, Mean Corpuscular Hemoglobin 29.7, Mean Corpuscular Hemoglobin Concent 35.0, Red Cell Distribution Width 13.0, Platelet Count 117L, Mean Platelet Volume 7.9, Neutrophils (%) (Auto) 77.0H, Lymphocytes (%) (Auto) 10.6L, Monocytes (%) (Auto) 7.7, Eosinophils (%) (Auto) 3.2H, Basophils (%) (Auto) 1.4, Sodium Level 139, Potassium Level 3.0L, Chloride Level 110H, Carbon Dioxide Level 23, Anion Gap 6, Blood Urea Nitrogen 15, Creatinine 0.8, Estimat Glomerular Filtration Rate > 60, Glucose Level 163H, Calcium Level 6.5L, Total Bilirubin 0.9, Aspartate Amino Transf (AST/SGOT) 12L, Alanine Aminotransferase (ALT/SGPT) < 6L, Alkaline Phosphatase 81, Total Protein 4.2L, Albumin 1.5L, Globulin 2.7, Albumin/Globulin Ratio 0.6L 09/14/20 10:30: Arterial Blood pH 7.438, Arterial Blood Partial Pressure CO2 32.7L, Arterial Blood Partial Pressure O2 144.0H, Arterial Blood HCO3 21.6L, Arterial Blood Oxygen Saturation 98.6, Arterial Blood Base Excess -1.9, Galileo Test Positive Height (Feet): 5 Height (Inches): 8.00 Weight (Pounds): 167 Objective Debilitated woman seen in ICU Intubated resting comfortably Abdomen non distended Assessment/Plan Status: stable, progressing Assessment/Plan: Assessment - minimal anemia - resp failure - DJD spine, spinal stenosis - Pancreatitis - PUD - Atrial fib - off anticoagulation - History of degenerative disc disease, spinal stenosis Recommendations - continue TF - vent care - follow labs - elevate HOB - x Cece Garrison MD Sep 14, 2020 22:26
[2020-09-15] VITALS (25 sets, daily range): BP systolic 112–188; BP diastolic 55–75
--- NOTE | 2020-09-15 00:10 | NUR ---
NURSE NOTES: Pt is resting in bed, not in acute distress. No grimacing noted. Tolerating vent setting and saturating @ 100%. A-Paced on the surface to air weapons officer. Tolerating OGT feeding with 10 mL residual. Pt is turned and repositioned with bilateral upper and lower extremities elevated. Oral care and suctioning done. HOB is elevated. Will continue to monitor pt.
--- NOTE | 2020-09-15 02:05 | NUR ---
NURSE NOTES: Pt is resting, with no signs of acute distress, and no grimacing. Vitals are stable. Tolerating vent settings and O2 sat at 100%. A-Paced on the track manager. Turned and repositioned. HOB elevated. Oral care and suctioning done. Will continue to monitor pt.
--- NOTE | 2020-09-15 04:00 | NUR ---
NURSE NOTES: Complete bed bath given. Left arm noted to be +3 edema with blisters that popped. Cleaned with NS and covered with kerlix and absorbent pads. Pt is turned and repositioned. Oral care and suction done. Will continue to monitor pt.
[2020-09-15] MEDS: Cefepime HCl 1 GM in D5W 55 ML IVPB SCH ×2 (04:25→16:22)
[2020-09-15 05:11] LABS: BASOPHILS % (AUTO) 1.6 % (0.0-2.0); HEMATOCRIT 29.8 % (42.0-52.0); HEMOGLOBIN 10.2 G/DL (14.2-18.0); LYMPHOCYTES % (AUTO) 12.4 % (20.0-45.0); MEAN CORPUSCULAR VOLUME 85 FL (80-99); MONOCYTES % (AUTO) 7.5 % (1.0-10.0); NEUTROPHILS % (AUTO) 73.6 % (45.0-75.0); PLATELET COUNT 118 K/UL (150-450); WHITE BLOOD COUNT 6.5 K/UL (4.8-10.8)
[2020-09-15 05:49] LABS: ALANINE AMINOTRANSFERASE < 6 U/L (12-78); ALBUMIN 1.4 G/DL (3.4-5.0); ALBUMIN/GLOBULIN RATIO 0.5 (1.0-2.7); ALKALINE PHOSPHATASE 99 U/L (46-116); ANION GAP 8 mmol/L (5-15); ASPARTATE AMINO TRANSFERASE 13 U/L (15-37); BILIRUBIN,TOTAL 0.2 MG/DL (0.2-1.0); BLOOD UREA NITROGEN 15 mg/dL (7-18); CALCIUM 6.4 MG/DL (8.5-10.1); CARBON DIOXIDE 20 MMOL/L (21-32); CHLORIDE 107 MMOL/L (98-107); CREATININE 0.6 MG/DL (0.55-1.30); POTASSIUM 3.8 MMOL/L (3.5-5.1); SODIUM 135 MMOL/L (136-145)
--- NOTE | 2020-09-15 07:00 | NUR ---
NURSE NOTES: Noted BP of 173/54. Notified Dr. Reyes and received new order and carried out. Will continue to monitor pt.
--- NOTE | 2020-09-15 07:36 | NUR ---
NURSE HAND-OFF REPORT: Important Events on Shift: BP 173/54, Left arm blister popped Patient Status: stable Diet: Glucerna 1.5 Pending Orders: 2D Echo Pending Results/Labs:N Pending MD notification:N Latest Vital Signs: Temperature 98.0 , Pulse 71 , B/P 188 /64 , Respiratory Rate 15 , O2 SAT 100 , Mechanical Ventilator, O2 Flow Rate 15.0 . Vital Sign Comment: stable EKG Rhythm: A-Paced Rhythm change?: N MD Notified?: - MD Response: Latest Swartz Fall Score: 70 Fall Risk: High Risk Safety Measures: Call light Within Reach, Bed Alarm Zone 1, Side Rails Side Rails x2, Bed position Low and Locked. Fall Precautions: Yellow Socks Yellow Gown Door Sign Patient Fall Education Report given to DAYO Fraser.
--- NOTE | 2020-09-15 08:00 | NUR ---
NURSE NOTES: Pt was assessed after receiving change of shift report from Trini RN and Alexandria RN. Pt has eyes closed, does not open eyes to voice, however withdraws to pain. Orally intubated, ETT 7.5 at 24cm/lipline with vent settings, AC14, VT500, Peep 5, FIO2 40% at 100% O2Sat, however with diminished lung sounds. A-paced on line manager. OGT in place with feeding Glucerna 1.5 infusing at goal rate of 50ml/hour with zero residual. Howe catheter is present, draining light lisandra urine. IV fluid 0.45% NS is infusing at 75ml/hour via right UA double lumen PICC line. Generalized edema, including BUE +4 edema and weeping, left upper extremity with opened blisters, and now covered with dry dressing. Scrotal edema also noted. Bilateral SCDs are in place. Pt is on pressure release mattress. HOB at 30 degrees, bed locked, three side rails up. Will continue with plan of care.
--- NOTE | 2020-09-15 09:05 | NUR ---
RESPIRATORY THERAPY NOTES: Began weaning patient at 0857. Started weaning on PS +8 PEEP +5 FIO2 40%. RSBI 91, HR 66, SATS 100%, SPON RR 21, SPON VT 301. Will draw ABG after 1 hour.
[2020-09-15] MEDS: Levodopa/Carbidopa 25/100 tab ORAL SCH ×3 (09:09→17:59)
[2020-09-15] MEDS: Pantoprazole Inj IVP SCH (09:09)
--- NOTE | 2020-09-15 09:18 | NUR ---
RD ASSESSMENT & RECOMMENDATIONS SEE CARE ACTIVITY FOR COMPLETE ASSESSMENT DAILY ESTIMATED NEEDS: Needs based on Critical care/ 77kg 22-28 kcals/kg 7260-8869 total kcals 1.2-2 g protein/kg 92-154 g total protein 25-30 mL/kg 1019-6215 total fluid mLs NUTRITION DIAGNOSIS: Swallowing difficulty R/T respiratory failure as evidenced by orally intubated, w/ OGT feeding. CURRENT TF:Glucerna 1.5 @ 50ml/hr x 22 hrs PO DIET RECOMMENDATIONS: SUSTAINABLE A[employer] SPECIALIST eval post extubation ENTERAL NUTRITION RECOMMENDATIONS: Glucerna 1.5@ 55ml/hr x 22 hrs (HOLD 1 HR BEFORE AND AFTER SYNTHROID) to provide 1210ml, 1815kcal, 100g prot, 918ml free water * Increase goal rate to 55ml/hr to better meet est needs * HOB over 30 degrees/ water flush per MD * Hold 1 hr before and after Synthroid ADDITIONAL RECOMMENDATIONS: * Per [facility]; HT=68" OG=048fby (09/06/20) -> maintain calibrated bedscale wt * Add NISS- h/o DM, elev BGs (178 163, 216) * Monitor lytes, replete as needed
--- NOTE | 2020-09-15 09:43 | Infectious Diseases Prog Note ---
Assessment/Plan Assessment/Plan A 1, Citrobacter pneumonia COVID 19 negative 2. + blood cultures with coag neg staph likely contaminated 3.Acute respiratory failure 4. leucocytosis resolved 5. Parkinson disease P 1. continue cefepime 2. will follow up cultures Subjective ROS Limited/Unobtainable: Yes Respiratory: Reports: other - on weaning process Allergies: Coded Allergies: AMIODARONE (Verified Allergy, Unknown, 09/10/20) LEVOFLOXACIN (Verified Allergy, Unknown, 09/10/20) PENICILLINS (Verified Allergy, Unknown, 09/10/20) Objective Last 24 Hour Vital Signs Date Time Temp Pulse Resp B/P (MAP) Pulse Ox O2 Delivery O2 Flow Rate FiO2 09/15/20 09:04 100 09/15/20 07:24 62 15 40 40 09/15/20 07:06 188/64 09/15/20 07:00 71 15 188/64 (105) 100 09/15/20 06:30 71 14 09/15/20 06:00 98.0 62 14 162/62 (95) 100 09/15/20 05:00 63 14 142/67 (92) 100 09/15/20 04:37 Mechanical Ventilator 09/15/20 04:00 69 09/15/20 04:00 65 14 112/58 (76) 100 09/15/20 03:00 66 17 137/63 (87) 100 09/15/20 02:50 69 16 40 09/15/20 02:00 65 16 128/65 (86) 100 09/15/20 01:00 65 17 125/55 (78) 100 09/15/20 00:00 98.3 69 14 143/69 (93) 100 09/15/20 00:00 Mechanical Ventilator 09/14/20 23:02 77 16 40 09/14/20 23:00 70 15 111/54 (73) 100 09/14/20 22:00 70 17 111/86 (94) 98 09/14/20 21:00 72 16 108/55 (72) 99 09/14/20 20:53 40 09/14/20 20:00 98.6 71 19 135/56 (82) 100 09/14/20 20:00 Mechanical Ventilator 09/14/20 20:00 76 09/14/20 19:00 84 18 124/49 (74) 100 09/14/20 18:44 80 14 40 09/14/20 18:00 70 15 149/68 (95) 100 09/14/20 17:00 76 19 129/67 (87) 97 09/14/20 16:00 98.2 69 19 140/82 (101) 100 09/14/20 16:00 76 09/14/20 16:00 Mechanical Ventilator 09/14/20 15:29 76 20 40 09/14/20 15:00 71 18 131/53 (79) 98 09/14/20 14:00 69 19 152/63 (92) 100 09/14/20 13:00 70 16 138/67 (90) 100 09/14/20 12:39 40 09/14/20 12:30 72 25 154/80 (104) 100 09/14/20 12:00 40 09/14/20 12:00 Mechanical Ventilator 09/14/20 12:00 71 09/14/20 12:00 98.4 71 22 157/68 (97) 100 09/14/20 11:20 74 28 40 40 09/14/20 11:00 71 24 141/62 (88) 100 09/14/20 10:00 63 25 141/61 (87) 100 09/14/20 09:49 100 09/14/20 09:43 40 Height (Feet): 5 Height (Inches): 8.00 Weight (Pounds): 167 HEENT: mucous membranes moist, other - orally intubated Respiratory/Chest: decreased breath sounds, other - on ventilator Cardiovascular: normal rate Abdomen: soft, non tender, other - Orogastric tube Extremities: other - edema of arms Neurologic/Psychiatric: unresponsiveness Laboratory Tests Test 09/14/20 10:30 09/15/20 04:00 Arterial Blood pH 7.438 (7.350-7.450) Arterial Blood Partial Pressure CO2 32.7 mmHg (35.0-45.0) L Arterial Blood Partial Pressure O2 144.0 mmHg (75.0-100.0) H Arterial Blood HCO3 21.6 mmol/L (22.0-26.0) L Arterial Blood Oxygen Saturation 98.6 % (95-100) Arterial Blood Base Excess -1.9 (-2-2) Galileo Test Positive White Blood Count 6.5 K/UL (4.8-10.8) Red Blood Count 3.50 M/UL (4.70-6.10) L Hemoglobin 10.2 G/DL (14.2-18.0) L Hematocrit 29.8 % (42.0-52.0) L Mean Corpuscular Volume 85 FL (80-99) Mean Corpuscular Hemoglobin 29.0 PG (27.0-31.0) Mean Corpuscular Hemoglobin Concent 34.1 G/DL (32.0-36.0) Red Cell Distribution Width 13.0 % (11.6-14.8) Platelet Count 118 K/UL (150-450) L Mean Platelet Volume 6.9 FL (6.5-10.1) Neutrophils (%) (Auto) 73.6 % (45.0-75.0) Lymphocytes (%) (Auto) 12.4 % (20.0-45.0) L Monocytes (%) (Auto) 7.5 % (1.0-10.0) Eosinophils (%) (Auto) 5.0 % (0.0-3.0) H Basophils (%) (Auto) 1.6 % (0.0-2.0) Sodium Level 135 MMOL/L (136-145) L Potassium Level 3.8 MMOL/L (3.5-5.1) Chloride Level 107 MMOL/L (98-107) Carbon Dioxide Level 20 MMOL/L (21-32) L Anion Gap 8 mmol/L (5-15) Blood Urea Nitrogen 15 mg/dL (7-18) Creatinine 0.6 MG/DL (0.55-1.30) Estimat Glomerular Filtration Rate > 60 mL/min (>60) Glucose Level 178 MG/DL (74-106) H Calcium Level 6.4 MG/DL (8.5-10.1) L Magnesium Level 1.8 MG/DL (1.8-2.4) Total Bilirubin 0.2 MG/DL (0.2-1.0) Aspartate Amino Transf (AST/SGOT) 13 U/L (15-37) L Alanine Aminotransferase (ALT/SGPT) < 6 U/L (12-78) L Alkaline Phosphatase 99 U/L (46-116) Pro-B-Type Natriuretic Peptide 1606 pg/mL (0-125) H Total Protein 4.0 G/DL (6.4-8.2) L Albumin 1.4 G/DL (3.4-5.0) L Globulin 2.6 g/dL Albumin/Globulin Ratio 0.5 (1.0-2.7) L Current Medications Medications (Trade) Dose Ordered Sig/Ryley Route PRN Reason Start Time Stop Time Status Last Admin Dose Admin Carbidopa/Levodopa (Sinemet 25/100) 1 tab THREE TIMES A DAY ORAL 09/11/20 13:00 10/11/20 12:59 09/15/20 09:09 Cefepime HCl 1 gm/ Dextrose 55 ml @ 110 mls/hr Q12H IVPB 09/11/20 04:00 09/18/20 03:59 09/15/20 04:25 Chlorhexidine Gluconate (Roselyn-Hex 2%) 1 applic DAILY@2000 TOPIC 09/11/20 20:00 12/10/20 19:59 09/14/20 20:06 Clonidine HCl (Catapres Tab) 0.1 mg Q4H PRN ORAL SBP>160 09/15/20 07:00 12/14/20 06:59 09/15/20 07:06 Dextrose (Dextrose 50%) 25 ml Q30M PRN IV Hypoglycemia 09/11/20 07:45 12/10/20 07:44 Dextrose (Dextrose 50%) 50 ml Q30M PRN IV Hypoglycemia 09/11/20 07:45 12/10/20 07:44 Levothyroxine Sodium (Synthroid) 88 mcg DAILY@0630 ORAL 09/12/20 06:30 10/12/20 06:29 09/15/20 05:35 Montelukast Sodium (Singulair) 10 mg QPM ORAL 09/11/20 16:30 12/10/20 16:29 09/14/20 16:18 Pantoprazole (Protonix) 40 mg DAILY IVP 09/11/20 22:00 10/11/20 21:59 09/15/20 09:09 Sodium Chloride 1,000 ml @ 75 mls/hr [id number] IV 09/10/20 17:30 10/10/20 17:29 09/14/20 22:23 Tamsulosin HCl (Flomax) 0.4 mg BEDTIME ORAL 09/11/20 21:00 10/11/20 20:59 09/14/20 20:07 Brayden Joshi MD Sep 15, 2020 09:43
--- NOTE | 2020-09-15 10:00 | NUR ---
NURSE NOTES: AM meds were administered. Pt is now being weaned, on PS 8, Peep 5, FIO2 at 40%, tolerating well with stable VS and at 100% O2Sat.
--- NOTE | 2020-09-15 12:00 | NUR ---
NURSE NOTES: Pt was cleaned, gown/bed linens were changed. Left upper extremity dressing was changed. VS remain stable. Pt is afebrile.
--- NOTE | 2020-09-15 12:47 | NUR ---
RESPIRATORY THERAPIST NOTES: Weaning ended at 1240. Placed back onto ACVC 14, 500, 40%, +5 due to increased SOB. During weaning RSBI 115, SPON, SPON VT <200mL. Bria OSHEA notified.
--- NOTE | 2020-09-15 13:06 | Critical Care Progress Note ---
Assessment/Plan Assessment/Plan ASSESSMENT: Acute respiratory failure due to aspiration pneumonia, urinary tract infection, pacemaker,leukocytosis with possible sepsis , atrial fibrillation, asthma, UTI, severe PCM PLAN care noted IV antibiotics respiratory care Ventilatory support SNF meds supportive care suction DVT prophylaxis no wean oxygen therapy as needed prognosis guarded medications/laboratory data/nursing notes/ICU care reviewed in detail note reviewed and edited care discussed with RN and RT ICU time spent >90 minutes Critical Care - Subjective Interval Events: care noted tolerated wean x 3 hours on vent slightly more alert ROS Limited/Unobtainable: Yes Condition: critical EKG Rhythm: Sinus Rhythm Residuals: minimal Tube Feeding Tolerated: yes I&O: Intake and Output 09/14/20 09/15/20 19:00 07:00 Intake Total 1801.666 ml 1605 ml Output Total 665 ml 630 ml Balance 1136.666 ml 975 ml Intake Free Water 30 ml IV Total 1171.666 ml 955 ml Tube Feeding 600 ml 600 ml Other 50 ml Output Urine Total 665 ml 630 ml Critical Care - Objective ET-Tube: 7.5 ET Position: 24 Last 24 Hour Vital Signs Date Time Temp Pulse Resp B/P (MAP) Pulse Ox O2 Delivery O2 Flow Rate FiO2 09/15/20 12:00 97.4 67 18 160/70 (100) 100 09/15/20 12:00 64 09/15/20 11:16 64 27 40 40 09/15/20 11:00 62 21 132/65 (87) 100 09/15/20 10:00 64 23 132/56 (81) 100 09/15/20 09:04 100 09/15/20 09:00 63 24 149/63 (91) 100 09/15/20 08:00 Mechanical Ventilator 09/15/20 08:00 66 09/15/20 08:00 66 20 133/66 (88) 100 09/15/20 07:24 62 15 40 40 09/15/20 07:06 188/64 09/15/20 07:00 71 15 188/64 (105) 100 09/15/20 06:30 71 14 09/15/20 06:00 98.0 62 14 162/62 (95) 100 09/15/20 05:00 63 14 142/67 (92) 100 09/15/20 04:37 Mechanical Ventilator 09/15/20 04:00 69 09/15/20 04:00 65 14 112/58 (76) 100 09/15/20 03:00 66 17 137/63 (87) 100 09/15/20 02:50 69 16 40 09/15/20 02:00 65 16 128/65 (86) 100 09/15/20 01:00 65 17 125/55 (78) 100 09/15/20 00:00 98.3 69 14 143/69 (93) 100 09/15/20 00:00 Mechanical Ventilator 09/14/20 23:02 77 16 40 09/14/20 23:00 70 15 111/54 (73) 100 09/14/20 22:00 70 17 111/86 (94) 98 09/14/20 21:00 72 16 108/55 (72) 99 09/14/20 20:53 40 09/14/20 20:00 98.6 71 19 135/56 (82) 100 09/14/20 20:00 Mechanical Ventilator 09/14/20 20:00 76 09/14/20 19:00 84 18 124/49 (74) 100 09/14/20 18:44 80 14 40 09/14/20 18:00 70 15 149/68 (95) 100 09/14/20 17:00 76 19 129/67 (87) 97 09/14/20 16:00 98.2 69 19 140/82 (101) 100 09/14/20 16:00 76 09/14/20 16:00 Mechanical Ventilator 09/14/20 15:29 76 20 40 09/14/20 15:00 71 18 131/53 (79) 98 09/14/20 14:00 69 19 152/63 (92) 100 Objective: WDWN NAD orally intubated ETT reduced breath sounds bilaterally without rhonchi or wheeze [id number] without MRG NABS nontender no HSM no CCE nonfocal poor LOC feeding tube in place skin noted Kyle Mark MD Sep 15, 2020 13:06
--- NOTE | 2020-09-15 13:50 | NUR ---
HAND-OFF: Report given to Adrianne OSHEA. Endorsed plan of care.
--- NOTE | 2020-09-15 14:00 | NUR ---
NURSE NOTES:RECEIVED REPORT FROM HARSH OSHEA STAFF OF ICU.RECEIVED PT WITH HOB ELEVATE 45 DEGREE OBTUNDED WITH ETT 7.5 @ 24CM AND CONNECTED TO VENTILATOR AC 14, TV 500,PEEP 5,AND FIO2 40% O2 SAT 100%. PT RECEIVING OGT FEEDING GLUCERNA 1.5 @ 50CC/HRS TOLERATING WELL ,NO RESIDUAL NOTED.F/C DRAINING WELL CLEAR YELLOW URINE COLOR.PT WITH GEN EDEMA ,BILAT UPPER EXT,S WITH BLISTERS AND 4+ EDEMA ALSO SCROTAL AREA VERY SWELLING. RT UA PICC-LINE IN PLACE CONNECTED WITH IVF,S 1/2 NS @ 75 CC/HRS.PT IS FULL CODE STATUS.WILL CONT TO MONITOR.
[2020-09-15] MEDS: Montelukast 10mg tablet ORAL SCH (16:22)
--- NOTE | 2020-09-15 19:16 | NUR ---
HAND-OFF: Report given to .OTILIO OSHEA.
--- NOTE | 2020-09-15 19:30 | NUR ---
NURSE NOTES: Received pt with eyes close,respond to tactile stimulation,orally intubated, on ac mode, Tolerated weaning today for 3hrs per AM RN Adrianne Pt, with pacemaker left chest and on A paced, Tolerated OGT fdg Glucerna 1.5 at 50ml/hr, residuals 4ml only. HOB kept elevated. on aspiration precaution Pt has 2-3+ swollen on her both arms with blisters. Left arm with drsg dry and intact. Scrotum was extremely swollen.Howe to gravity with moderate amt of yellowish urine, Monitor I and O. Monitor lytes. Will continue to monitor.
[2020-09-15] MEDS: Dyna-Hex 2% Top Sol 2oz TOPIC SCH (20:14)
--- NOTE | 2020-09-15 20:36 | General Progress Note ---
Subjective ROS Limited/Unobtainable: No Constitutional: Reports: malaise, weakness HEENT: Reports: no symptoms Cardiovascular: Reports: no symptoms Respiratory: Reports: cough, shortness of breath, sputum Gastrointestinal/Abdominal: Reports: difficulty swallowing Genitourinary: Reports: no symptoms Neurologic/Psychiatric: Reports: no symptoms Endocrine: Reports: no symptoms Hematologic/Lymphatic: Reports: anemia Allergies: Coded Allergies: AMIODARONE (Verified Allergy, Unknown, 09/10/20) LEVOFLOXACIN (Verified Allergy, Unknown, 09/10/20) PENICILLINS (Verified Allergy, Unknown, 09/10/20) All Systems: reviewed and negative except above Subjective no events. stable on the vent. weaned 3 hrs yesterday. decreased secretions. on iv abx. tolerating ngt feeds Objective Last 24 Hour Vital Signs Date Time Temp Pulse Resp B/P (MAP) Pulse Ox O2 Delivery O2 Flow Rate FiO2 09/15/20 19:30 60 15 40 09/15/20 18:00 60 14 143/66 (91) 100 09/15/20 17:30 62 14 154/64 (94) 100 09/15/20 17:00 60 14 177/72 (107) 100 09/15/20 16:00 Mechanical Ventilator 09/15/20 16:00 96.8 60 14 164/71 (102) 100 09/15/20 16:00 60 09/15/20 16:00 60 14 129/58 (81) 100 09/15/20 15:29 60 14 40 40 09/15/20 15:00 60 14 162/67 (98) 100 09/15/20 14:00 60 14 164/67 (99) 100 09/15/20 13:30 66 15 128/59 (82) 100 09/15/20 13:00 65 14 132/63 (86) 100 09/15/20 12:00 Mechanical Ventilator 09/15/20 12:00 97.4 67 18 160/70 (100) 100 09/15/20 12:00 64 09/15/20 11:16 64 27 40 40 09/15/20 11:00 62 21 132/65 (87) 100 09/15/20 10:00 64 23 132/56 (81) 100 09/15/20 09:04 100 09/15/20 09:00 63 24 149/63 (91) 100 09/15/20 08:00 Mechanical Ventilator 09/15/20 08:00 66 09/15/20 08:00 66 20 133/66 (88) 100 09/15/20 07:24 62 15 40 40 09/15/20 07:06 188/64 09/15/20 07:00 71 15 188/64 (105) 100 09/15/20 06:30 71 14 09/15/20 06:00 98.0 62 14 162/62 (95) 100 09/15/20 05:00 63 14 142/67 (92) 100 09/15/20 04:37 Mechanical Ventilator 09/15/20 04:00 69 09/15/20 04:00 65 14 112/58 (76) 100 09/15/20 03:00 66 17 137/63 (87) 100 09/15/20 02:50 69 16 40 09/15/20 02:00 65 16 128/65 (86) 100 09/15/20 01:00 65 17 125/55 (78) 100 09/15/20 00:00 98.3 69 14 143/69 (93) 100 09/15/20 00:00 Mechanical Ventilator 09/14/20 23:02 77 16 40 09/14/20 23:00 70 15 111/54 (73) 100 09/14/20 22:00 70 17 111/86 (94) 98 09/14/20 21:00 72 16 108/55 (72) 99 09/14/20 20:53 40 Intake and Output 09/14/20 09/15/20 18:59 06:59 Intake Total 1751.666 ml 1605 ml Output Total 695 ml 590 ml Balance 1056.666 ml 1015 ml Intake Free Water 30 ml IV Total 1171.666 ml 955 ml Tube Feeding 550 ml 600 ml Other 50 ml Output Urine Total 695 ml 590 ml Laboratory Tests 09/15/20 04:00: White Blood Count 6.5, Red Blood Count 3.50L, Hemoglobin 10.2L, Hematocrit 29.8L , Mean Corpuscular Volume 85, Mean Corpuscular Hemoglobin 29.0, Mean Corpuscular Hemoglobin Concent 34.1, Red Cell Distribution Width 13.0, Platelet Count 118L, Mean Platelet Volume 6.9, Neutrophils (%) (Auto) 73.6, Lymphocytes (%) (Auto) 12.4L, Monocytes (%) (Auto) 7.5, Eosinophils (%) (Auto) 5.0H, Basophils (%) (Auto) 1.6, Sodium Level 135L, Potassium Level 3.8, Chloride Level 107, Carbon Dioxide Level 20L, Anion Gap 8, Blood Urea Nitrogen 15, Creatinine 0.6, Estimat Glomerular Filtration Rate > 60, Glucose Level 178H, Calcium Level 6.4L, Magnesium Level 1.8, Total Bilirubin 0.2, Aspartate Amino Transf (AST/SGOT) 13L, Alanine Aminotransferase (ALT/SGPT) < 6L, Alkaline Phosphatase 99, Pro-B-Type Natriuretic Peptide 1606H, Total Protein 4.0L, Albumin 1.4L, Globulin 2.6, Albumin/Globulin Ratio 0.5L 09/15/20 09:43: Arterial Blood pH 7.413, Arterial Blood Partial Pressure CO2 35.0, Arterial Blood Partial Pressure O2 129.7H, Arterial Blood HCO3 21.8L, Arterial Blood Oxygen Saturation 98.6, Arterial Blood Base Excess -2.2L, Galileo Test Positive Height (Feet): 5 Height (Inches): 8.00 Weight (Pounds): 167 Objective General Appearance: WD/WN, alert Neck: supple Cardiovascular: regular rhythm Respiratory/Chest: chest wall non-tender, lungs clear, normal breath sounds Abdomen: normal bowel sounds, non tender, soft, no organomegaly Edema: no edema noted Leg (L), no edema noted Leg (R) Edema: trace edema Neurologic: disoriented, unresponsive, aphasia Skin: normal pigmentation Assessment/Plan Problem List: (1) Pneumonia ICD Codes: J18.9 - Pneumonia, unspecified organism SNOMED: 707862176, 007205398, 343470252 (2) UTI (urinary tract infection) ICD Codes: N39.0 - Urinary tract infection, site not specified SNOMED: 15351472, 210680636, 720948012 (3) Respiratory failure ICD Codes: J96.90 - Respiratory failure, unspecified, unspecified whether with hypoxia or hypercapnia SNOMED: 902672013 Status: stable, progressing Assessment/Plan: iv abx folllow up pending sputum cultures vent support wean per pulm resp rx tube feeds ivf dvt/stress ulcer prophylaxis skin care turn q2 full code per family Paulino Reyes MD Sep 15, 2020 20:36
[2020-09-15] MEDS: Tamsulosin 0.4mg cap ORAL SCH (21:26)
--- NOTE | 2020-09-15 22:51 | General Progress Note ---
Subjective ROS Limited/Unobtainable: No Allergies: Coded Allergies: AMIODARONE (Verified Allergy, Unknown, 09/10/20) LEVOFLOXACIN (Verified Allergy, Unknown, 09/10/20) PENICILLINS (Verified Allergy, Unknown, 09/10/20) Subjective above noted d/w air liaison and special staff tolerating TF Objective Last 24 Hour Vital Signs Date Time Temp Pulse Resp B/P (MAP) Pulse Ox O2 Delivery O2 Flow Rate FiO2 09/15/20 22:00 60 14 150/68 (95) 100 09/15/20 21:00 60 14 146/75 (98) 100 09/15/20 20:53 40 09/15/20 20:00 98.0 60 14 153/70 (97) 100 09/15/20 20:00 61 09/15/20 20:00 Mechanical Ventilator 09/15/20 19:30 60 15 40 09/15/20 18:00 60 14 143/66 (91) 100 09/15/20 17:30 62 14 154/64 (94) 100 09/15/20 17:00 60 14 177/72 (107) 100 09/15/20 16:00 Mechanical Ventilator 09/15/20 16:00 96.8 60 14 164/71 (102) 100 09/15/20 16:00 60 09/15/20 16:00 60 14 129/58 (81) 100 09/15/20 15:29 60 14 40 40 09/15/20 15:00 60 14 162/67 (98) 100 09/15/20 14:00 60 14 164/67 (99) 100 09/15/20 13:30 66 15 128/59 (82) 100 09/15/20 13:00 65 14 132/63 (86) 100 09/15/20 12:00 Mechanical Ventilator 09/15/20 12:00 97.4 67 18 160/70 (100) 100 09/15/20 12:00 64 09/15/20 11:16 64 27 40 40 09/15/20 11:00 62 21 132/65 (87) 100 09/15/20 10:00 64 23 132/56 (81) 100 09/15/20 09:04 100 09/15/20 09:00 63 24 149/63 (91) 100 09/15/20 08:00 Mechanical Ventilator 09/15/20 08:00 66 09/15/20 08:00 66 20 133/66 (88) 100 09/15/20 07:24 62 15 40 40 09/15/20 07:06 188/64 09/15/20 07:00 71 15 188/64 (105) 100 09/15/20 06:30 71 14 09/15/20 06:00 98.0 62 14 162/62 (95) 100 09/15/20 05:00 63 14 142/67 (92) 100 09/15/20 04:37 Mechanical Ventilator 09/15/20 04:00 69 09/15/20 04:00 65 14 112/58 (76) 100 09/15/20 03:00 66 17 137/63 (87) 100 09/15/20 02:50 69 16 40 09/15/20 02:00 65 16 128/65 (86) 100 09/15/20 01:00 65 17 125/55 (78) 100 09/15/20 00:00 98.3 69 14 143/69 (93) 100 09/15/20 00:00 Mechanical Ventilator 09/14/20 23:02 77 16 40 09/14/20 23:00 70 15 111/54 (73) 100 Intake and Output 09/14/20 09/15/20 19:00 07:00 Intake Total 1801.666 ml 1605 ml Output Total 665 ml 630 ml Balance 1136.666 ml 975 ml Intake Free Water 30 ml IV Total 1171.666 ml 955 ml Tube Feeding 600 ml 600 ml Other 50 ml Output Urine Total 665 ml 630 ml Laboratory Tests 09/15/20 04:00: White Blood Count 6.5, Red Blood Count 3.50L, Hemoglobin 10.2L, Hematocrit 29.8L , Mean Corpuscular Volume 85, Mean Corpuscular Hemoglobin 29.0, Mean Corpuscular Hemoglobin Concent 34.1, Red Cell Distribution Width 13.0, Platelet Count 118L, Mean Platelet Volume 6.9, Neutrophils (%) (Auto) 73.6, Lymphocytes (%) (Auto) 12.4L, Monocytes (%) (Auto) 7.5, Eosinophils (%) (Auto) 5.0H, Basophils (%) (Auto) 1.6, Sodium Level 135L, Potassium Level 3.8, Chloride Level 107, Carbon Dioxide Level 20L, Anion Gap 8, Blood Urea Nitrogen 15, Creatinine 0.6, Estimat Glomerular Filtration Rate > 60, Glucose Level 178H, Calcium Level 6.4L, Magnesium Level 1.8, Total Bilirubin 0.2, Aspartate Amino Transf (AST/SGOT) 13L, Alanine Aminotransferase (ALT/SGPT) < 6L, Alkaline Phosphatase 99, Pro-B-Type Natriuretic Peptide 1606H, Total Protein 4.0L, Albumin 1.4L, Globulin 2.6, Albumin/Globulin Ratio 0.5L 09/15/20 09:43: Arterial Blood pH 7.413, Arterial Blood Partial Pressure CO2 35.0, Arterial Blood Partial Pressure O2 129.7H, Arterial Blood HCO3 21.8L, Arterial Blood Oxygen Saturation 98.6, Arterial Blood Base Excess -2.2L, Galileo Test Positive Height (Feet): 5 Height (Inches): 8.00 Weight (Pounds): 167 Objective Debilitated woman seen in ICU Intubated resting comfortably Abdomen non distended Assessment/Plan Status: stable, progressing Assessment/Plan: Assessment - minimal anemia - resp failure - DJD spine, spinal stenosis - Pancreatitis - PUD - Atrial fib - off anticoagulation - History of degenerative disc disease, spinal stenosis Recommendations - continue TF - vent care - follow labs - elevate HOB - x Cece Garrison MD Sep 15, 2020 22:51
--- NOTE | 2020-09-15 23:09 | NUR ---
HAND-OFF: Report given to Bethany OSHEA.
--- NOTE | 2020-09-15 23:10 | NUR ---
NURSE NOTES: Suctioned tn tk whitish secretions moderate in amt. Repositioned for pts comfort and to avoid any skin breakdown
--- NOTE | 2020-09-15 23:10 | NUR ---
Nurse Notes: Patient received from DAYO Suarez. patient asleep opens eyes to voice and light shaking but nonverbal with 7.5 ETT at 24cm lipline on ventilator AC 14 TV 500 FiO2 40% PEEP 5. BP 134/59 HR 60 A-paced on monitor. Left upper arm PICC running 1/2 NS @ 75ml/hr with BUE edema with blisters noted. OGT running glucerna 1.5 @50ml/hr. armando catheter draining yellow urine. skin cool dry with scrotal edema noted and BUE blisters, bilateral heel DTPI. patient repositioned and oral care provided.
[2020-09-16] VITALS (26 sets, daily range): BP systolic 79–150; BP diastolic 43–79
--- NOTE | 2020-09-16 | NUR ---
Nurse Notes: Patient received from DAYO Suarez. patient asleep opens eyes to voice and light shaking but nonverbal with 7.5 ETT at 24cm lipline on ventilator AC 14 TV 500 FiO2 40% PEEP 5. BP 133/61 HR 60 A-paced on monitor. Left upper arm PICC running 1/2 NS @ 75ml/hr with BUE edema with blisters noted. OGT running glucerna 1.5 @50ml/hr, 10ml residual. armando catheter draining yellow urine. patient repositioned and oral care provided.
--- NOTE | 2020-09-16 01:20 | Cardiology Progress Note ---
Subjective DATE OF SERVICE: Sep 15, 2020 Remains off pressors; still on IVF support BP parameters remain stable. Monitor: Paced rhythm +blood cultures and multiple +sputum pathogens noted. S/P PICC CXR: (09/13/20) Unchg'd left pleural and parenchymal disease. AB.41/35/129 Objective Last 24 Hour Vital Signs Date Time Temp Pulse Resp B/P (MAP) Pulse Ox O2 Delivery O2 Flow Rate FiO2 09/16/20 01:00 60 14 125/59 (81) 100 09/16/20 00:00 97.9 60 14 133/61 (85) 100 09/16/20 00:00 Mechanical Ventilator 09/15/20 23:10 60 14 40 09/15/20 23:00 60 19 134/59 (84) 100 09/15/20 22:00 60 14 150/68 (95) 100 09/15/20 21:00 60 14 146/75 (98) 100 09/15/20 20:53 40 09/15/20 20:00 98.0 60 14 153/70 (97) 100 09/15/20 20:00 61 09/15/20 20:00 Mechanical Ventilator 09/15/20 19:30 60 15 40 09/15/20 18:00 60 14 143/66 (91) 100 09/15/20 17:30 62 14 154/64 (94) 100 09/15/20 17:00 60 14 177/72 (107) 100 09/15/20 16:00 Mechanical Ventilator 09/15/20 16:00 96.8 60 14 164/71 (102) 100 09/15/20 16:00 60 09/15/20 16:00 60 14 129/58 (81) 100 09/15/20 15:29 60 14 40 40 09/15/20 15:00 60 14 162/67 (98) 100 09/15/20 14:00 60 14 164/67 (99) 100 09/15/20 13:30 66 15 128/59 (82) 100 09/15/20 13:00 65 14 132/63 (86) 100 09/15/20 12:00 Mechanical Ventilator 09/15/20 12:00 97.4 67 18 160/70 (100) 100 09/15/20 12:00 64 09/15/20 11:16 64 27 40 40 09/15/20 11:00 62 21 132/65 (87) 100 09/15/20 10:00 64 23 132/56 (81) 100 09/15/20 09:04 100 09/15/20 09:00 63 24 149/63 (91) 100 09/15/20 08:00 Mechanical Ventilator 09/15/20 08:00 66 09/15/20 08:00 66 20 133/66 (88) 100 09/15/20 07:24 62 15 40 40 09/15/20 07:06 188/64 09/15/20 07:00 71 15 188/64 (105) 100 09/15/20 06:30 71 14 09/15/20 06:00 98.0 62 14 162/62 (95) 100 09/15/20 05:00 63 14 142/67 (92) 100 09/15/20 04:37 Mechanical Ventilator 09/15/20 04:00 69 09/15/20 04:00 65 14 112/58 (76) 100 09/15/20 03:00 66 17 137/63 (87) 100 09/15/20 02:50 69 16 40 09/15/20 02:00 65 16 128/65 (86) 100 ROS: unchanged from my evaluation on 09/10/20. HEENT: Orally intubated, Mechanically Ventilated, Thin secretions ET Tube RHYTHM: other - paced LUNGS: bilateral rhonchi CARDIAC: normal rate, regular rhythm, normal S1 and S2 ABDOMEN: normal bowel sounds, non tender, soft, no organomegaly EXTREMITIES: trace edema, other - adequate distal perfusion Laboratory Tests Test 09/15/20 04:00 09/15/20 09:43 White Blood Count 6.5 K/UL (4.8-10.8) Red Blood Count 3.50 M/UL (4.70-6.10) L Hemoglobin 10.2 G/DL (14.2-18.0) L Hematocrit 29.8 % (42.0-52.0) L Mean Corpuscular Volume 85 FL (80-99) Mean Corpuscular Hemoglobin 29.0 PG (27.0-31.0) Mean Corpuscular Hemoglobin Concent 34.1 G/DL (32.0-36.0) Red Cell Distribution Width 13.0 % (11.6-14.8) Platelet Count 118 K/UL (150-450) L Mean Platelet Volume 6.9 FL (6.5-10.1) Neutrophils (%) (Auto) 73.6 % (45.0-75.0) Lymphocytes (%) (Auto) 12.4 % (20.0-45.0) L Monocytes (%) (Auto) 7.5 % (1.0-10.0) Eosinophils (%) (Auto) 5.0 % (0.0-3.0) H Basophils (%) (Auto) 1.6 % (0.0-2.0) Sodium Level 135 MMOL/L (136-145) L Potassium Level 3.8 MMOL/L (3.5-5.1) Chloride Level 107 MMOL/L (98-107) Carbon Dioxide Level 20 MMOL/L (21-32) L Anion Gap 8 mmol/L (5-15) Blood Urea Nitrogen 15 mg/dL (7-18) Creatinine 0.6 MG/DL (0.55-1.30) Estimat Glomerular Filtration Rate > 60 mL/min (>60) Glucose Level 178 MG/DL (74-106) H Calcium Level 6.4 MG/DL (8.5-10.1) L Magnesium Level 1.8 MG/DL (1.8-2.4) Total Bilirubin 0.2 MG/DL (0.2-1.0) Aspartate Amino Transf (AST/SGOT) 13 U/L (15-37) L Alanine Aminotransferase (ALT/SGPT) < 6 U/L (12-78) L Alkaline Phosphatase 99 U/L (46-116) Pro-B-Type Natriuretic Peptide 1606 pg/mL (0-125) H Total Protein 4.0 G/DL (6.4-8.2) L Albumin 1.4 G/DL (3.4-5.0) L Globulin 2.6 g/dL Albumin/Globulin Ratio 0.5 (1.0-2.7) L Arterial Blood pH 7.413 (7.350-7.450) Arterial Blood Partial Pressure CO2 35.0 mmHg (35.0-45.0) Arterial Blood Partial Pressure O2 129.7 mmHg (75.0-100.0) H Arterial Blood HCO3 21.8 mmol/L (22.0-26.0) L Arterial Blood Oxygen Saturation 98.6 % (95-100) Arterial Blood Base Excess -2.2 (-2-2) L Galileo Test Positive Assessment/Plan Assessment/Plan Sepsis with shock Hypokalemia UTI Respiratory failure HC associated, polymicrobial PNA Pacemaker Ac/chr diastolic CHF with decreasing BNP. Acute myocardial ischemia Lactic acidosis resolved Hypovolemia/dehydration/hypernatremia corrected Severe protein/calorie malnutrition Rhabdomyolysis Possible bacteremia Monitor lytes and replace as needed. Avoid pressors Abx per ID Vent support; wean as able Nutrition per NGTube DVT prophyl Pacemaker eval not needed; pacemaker recently implanted. Periodic diuresis based on clinical parameters; trend BNP Slick Desai MD Sep 16, 2020 01:20
--- NOTE | 2020-09-16 02:00 | NUR ---
Nurse Notes: patient asleep opens eyes to voice and light shaking but nonverbal with 7.5 ETT at 24cm lipline on ventilator AC 14 TV 500 FiO2 40% PEEP 5. BP 103/56 HR 72 A-paced on monitor. Left upper arm PICC running 1/2 NS @ 75ml/hr with BUE edema with blisters noted. OGT running glucerna 1.5 @50ml/hr. Howe catheter draining yellow urine. patient given CHG bath, repositioned and oral care provided.
[2020-09-16] MEDS: Cefepime HCl 1 GM in D5W 55 ML IVPB SCH ×2 (04:00→17:27)
--- NOTE | 2020-09-16 04:00 | NUR ---
Nurse Notes: patient asleep opens eyes to voice and light shaking but nonverbal with 7.5 ETT at 24cm lipline on ventilator AC 14 TV 500 FiO2 40% PEEP 5. BP 97/49 HR 60 A-paced on monitor. Left upper arm PICC running 1/2 NS @ 75ml/hr with BUE edema with blisters noted. OGT running glucerna 1.5 @50ml/hr. Howe catheter draining yellow urine. patient repositioned and oral care provided.
--- NOTE | 2020-09-16 06:00 | NUR ---
Nurse Notes: patient asleep opens eyes to voice and light shaking but nonverbal with 7.5 ETT at 24cm lipline on ventilator AC 14 TV 500 FiO2 40% PEEP 5. BP 128/64 HR 60 A-paced on monitor. Left upper arm PICC running 1/2 NS @ 75ml/hr with BUE edema with blisters noted. OGT held glucerna 1.5 for synthroid. armando catheter draining yellow urine. skin cool dry with scrotal edema noted and BUE blisters, bilateral heel DTPI. patient repositioned and oral care provided.
--- NOTE | 2020-09-16 07:23 | NUR ---
NURSE HAND-OFF REPORT: Latest Vital Signs: Temperature 97.7 , Pulse 60 , B/P 126 /59 , Respiratory Rate 14 , O2 SAT 100 , Mechanical Ventilator, O2 Flow Rate 15.0 . Vital Sign Comment: WNL EKG Rhythm: A-Paced Rhythm change?: N MD Notified?: - MD Response: Latest Swartz Fall Score: 70 Fall Risk: High Risk Safety Measures: Call light Within Reach, Bed Alarm Zone 1, Side Rails Side Rails x2, Bed position Low and Locked. Fall Precautions: Yellow Socks Yellow Gown Door Sign Patient Fall Education Report given to DAYO Us.
--- NOTE | 2020-09-16 07:40 | NUR ---
NURSE NOTES: LATE ENTRY: RECEIVED REPORT FROM NICOLE. OSHEA. PT OPENS EYES. MOVES UPPER EXTREMITIES FREELY. AFEBRILE. PUPILS 3MM, BRISK. A- PACED ON MONITOR. HR 60, BP 119/56, SP02 100%, RR 14. PT INTUBATED ETT 7.5, 24CM AT LIP. AC 14, VT 500, PEEP 5, FI02 40%. SECRETIONS THICK. BREATH SOUNDS DIMINISHED LOWER LOBES. OGT IN PLACE. PATENT. TUBE FEEDING GLUCERNA 1.5 AT 50ML/HR. NO BM. ABDOMEN LARGE AND ROUND. BOWEL SOUNDS HYPOACTIVE, ALL QUADRANTS. BLADDER FLAT, VIGIL IN PLACE. DRAINING YELLOW URINE. BELOW BLADDER. SKIN- SEE ASSESSMENT. IV ACCESS YAO PICC. PATENT. RUNNING AT 1/2 NS AT 75ML/HR. STANDARD ISOLATION IN PLACE. BED IN LOWEST POSITION, LOCKED. BED ALARM ON. SIDE RAILS UP. WILL CONTINUE TO MONITOR.
--- NOTE | 2020-09-16 08:09 | NUR ---
NURSE NOTES: MD. BERMAN HERE TO SEE PT,. PT OPENS EYES AND MOVES UPPER EXTREMITIES. NO REPORT OF LOOSE STOOL AND TOLERATING TUBE FEEDS. YESTERDAY HGB 10.2. NO LAB ORDERS THIS AM. NO NEW ORDERS.
--- NOTE | 2020-09-16 08:40 | Critical Care Progress Note ---
Assessment/Plan Assessment/Plan ASSESSMENT: Acute respiratory failure due to aspiration pneumonia, urinary tract infection, pacemaker,leukocytosis with possible sepsis , atrial fibrillation, asthma, UTI, severe PCM PLAN care noted IV antibiotics respiratory care Ventilatory support SNF meds supportive care suction DVT prophylaxis wean as able oxygen therapy as needed prognosis guarded off load position change ICU care reviewed medications/laboratory data/nursing notes/ICU care reviewed in detail note reviewed and edited care discussed with RN and RT ICU time spent >90 minutes Critical Care - Subjective Interval Events: still on full support care noted RT care reviewed ICU care reviewed ROS Limited/Unobtainable: Yes Condition: critical EKG Rhythm: Sinus Rhythm Residuals: minimal Tube Feeding Tolerated: yes I&O: Intake and Output 09/15/20 09/16/20 19:00 07:00 Intake Total 1530 ml 1468.75 ml Output Total 695 ml 845 ml Balance 835 ml 623.75 ml Intake Free Water 200 ml 60 ml IV Total 730 ml 908.75 ml Tube Feeding 600 ml 500 ml Output Urine Total 695 ml 845 ml Critical Care - Objective ET-Tube: 7.5 ET Position: 24 Last 24 Hour Vital Signs Date Time Temp Pulse Resp B/P (MAP) Pulse Ox O2 Delivery O2 Flow Rate FiO2 09/16/20 07:00 60 14 126/59 (81) 100 09/16/20 06:30 60 15 09/16/20 06:00 60 14 128/64 (85) 100 09/16/20 05:00 68 16 115/64 (81) 100 09/16/20 04:00 Mechanical Ventilator 09/16/20 04:00 97.7 60 15 97/49 (65) 99 09/16/20 04:00 60 09/16/20 03:14 60 19 40 09/16/20 03:00 60 15 112/63 (79) 100 09/16/20 02:00 72 16 103/56 (72) 100 09/16/20 01:00 60 14 125/59 (81) 100 09/16/20 00:00 97.9 60 14 133/61 (85) 100 09/16/20 00:00 Mechanical Ventilator 09/16/20 00:00 60 09/15/20 23:10 60 14 40 09/15/20 23:00 60 19 134/59 (84) 100 10/15/20 22:00 60 14 150/68 (95) 100 09/15/20 21:00 60 14 146/75 (98) 100 09/15/20 20:53 40 09/15/20 20:00 98.0 60 14 153/70 (97) 100 09/15/20 20:00 61 09/15/20 20:00 Mechanical Ventilator 09/15/20 19:30 60 15 40 09/15/20 18:00 60 14 143/66 (91) 100 09/15/20 17:30 62 14 154/64 (94) 100 09/15/20 17:00 60 14 177/72 (107) 100 09/15/20 16:00 Mechanical Ventilator 09/15/20 16:00 96.8 60 14 164/71 (102) 100 09/15/20 16:00 60 09/15/20 16:00 60 14 129/58 (81) 100 09/15/20 15:29 60 14 40 40 09/15/20 15:00 60 14 162/67 (98) 100 09/15/20 14:00 60 14 164/67 (99) 100 09/15/20 13:30 66 15 128/59 (82) 100 09/15/20 13:00 65 14 132/63 (86) 100 09/15/20 12:00 Mechanical Ventilator 09/15/20 12:00 97.4 67 18 160/70 (100) 100 09/15/20 12:00 64 09/15/20 11:16 64 27 40 40 09/15/20 11:00 62 21 132/65 (87) 100 09/15/20 10:00 64 23 132/56 (81) 100 09/15/20 09:04 100 09/15/20 09:00 63 24 149/63 (91) 100 Labs: Labs Test 09/14/20 04:50 09/14/20 07:30 09/14/20 10:30 09/15/20 04:00 Vancomycin Level Trough 14.2 ug/mL (5.0-12.0) White Blood Count 6.5 K/UL (4.8-10.8) 6.5 K/UL (4.8-10.8) Red Blood Count 3.41 M/UL (4.70-6.10) 3.50 M/UL (4.70-6.10) Hemoglobin 10.1 G/DL (14.2-18.0) 10.2 G/DL (14.2-18.0) Hematocrit 28.9 % (42.0-52.0) 29.8 % (42.0-52.0) Mean Corpuscular Volume 85 FL (80-99) 85 FL (80-99) Mean Corpuscular Hemoglobin 29.7 PG (27.0-31.0) 29.0 PG (27.0-31.0) Mean Corpuscular Hemoglobin Concent 35.0 G/DL (32.0-36.0) 34.1 G/DL (32.0-36.0) Red Cell Distribution Width 13.0 % (11.6-14.8) 13.0 % (11.6-14.8) Platelet Count 117 K/UL (150-450) 118 K/UL (150-450) Mean Platelet Volume 7.9 FL (6.5-10.1) 6.9 FL (6.5-10.1) Neutrophils (%) (Auto) 77.0 % (45.0-75.0) 73.6 % (45.0-75.0) Lymphocytes (%) (Auto) 10.6 % (20.0-45.0) 12.4 % (20.0-45.0) Monocytes (%) (Auto) 7.7 % (1.0-10.0) 7.5 % (1.0-10.0) Eosinophils (%) (Auto) 3.2 % (0.0-3.0) 5.0 % (0.0-3.0) Basophils (%) (Auto) 1.4 % (0.0-2.0) 1.6 % (0.0-2.0) Sodium Level 139 MMOL/L (136-145) 135 MMOL/L (136-145) Potassium Level 3.0 MMOL/L (3.5-5.1) 3.8 MMOL/L (3.5-5.1) Chloride Level 110 MMOL/L (98-107) 107 MMOL/L (98-107) Carbon Dioxide Level 23 MMOL/L (21-32) 20 MMOL/L (21-32) Anion Gap 6 mmol/L (5-15) 8 mmol/L (5-15) Blood Urea Nitrogen 15 mg/dL (7-18) 15 mg/dL (7-18) Creatinine 0.8 MG/DL (0.55-1.30) 0.6 MG/DL (0.55-1.30) Estimat Glomerular Filtration Rate > 60 mL/min (>60) > 60 mL/min (>60) Glucose Level 163 MG/DL (74-106) 178 MG/DL (74-106) Calcium Level 6.5 MG/DL (8.5-10.1) 6.4 MG/DL (8.5-10.1) Total Bilirubin 0.9 MG/DL (0.2-1.0) 0.2 MG/DL (0.2-1.0) Aspartate Amino Transf (AST/SGOT) 12 U/L (15-37) 13 U/L (15-37) Alanine Aminotransferase (ALT/SGPT) < 6 U/L (12-78) < 6 U/L (12-78) Alkaline Phosphatase 81 U/L (46-116) 99 U/L (46-116) Total Protein 4.2 G/DL (6.4-8.2) 4.0 G/DL (6.4-8.2) Albumin 1.5 G/DL (3.4-5.0) 1.4 G/DL (3.4-5.0) Globulin 2.7 g/dL 2.6 g/dL Albumin/Globulin Ratio 0.6 (1.0-2.7) 0.5 (1.0-2.7) Arterial Blood pH 7.438 (7.350-7.450) Arterial Blood Partial Pressure CO2 32.7 mmHg (35.0-45.0) Arterial Blood Partial Pressure O2 144.0 mmHg (75.0-100.0) Arterial Blood HCO3 21.6 mmol/L (22.0-26.0) Arterial Blood Oxygen Saturation 98.6 % (95-100) Arterial Blood Base Excess -1.9 (-2-2) Galileo Test Positive Magnesium Level 1.8 MG/DL (1.8-2.4) Pro-B-Type Natriuretic Peptide 1606 pg/mL (0-125) Test 09/15/20 09:43 Arterial Blood pH 7.413 (7.350-7.450) Arterial Blood Partial Pressure CO2 35.0 mmHg (35.0-45.0) Arterial Blood Partial Pressure O2 129.7 mmHg (75.0-100.0) Arterial Blood HCO3 21.8 mmol/L (22.0-26.0) Arterial Blood Oxygen Saturation 98.6 % (95-100) Arterial Blood Base Excess -2.2 (-2-2) Galileo Test Positive Objective: WDWN NAD orally intubated ETT reduced breath sounds bilaterally without rhonchi or wheeze [id number] without MRG NABS nontender no HSM no CCE nonfocal poor LOC feeding tube in place skin noted Kyle Mark MD Sep 16, 2020 08:40
[2020-09-16] MEDS: Levodopa/Carbidopa 25/100 tab ORAL SCH ×3 (09:14→17:27)
[2020-09-16] MEDS: Pantoprazole Inj IVP SCH (09:14)
--- NOTE | 2020-09-16 10:35 | NUR ---
NURSE NOTES: MD. MARKHAM HERE TO SEE PT. WAS INFORMED OF WEANING NOW. WILL GET ABG COMPLETE IN WHILE. PT MORE AWAKE AND ACTIVE WITH UPPER EXTREMITIES. INFORMED OF WEEPING EDEMA, INTACT BLOOD BLISTERS. NO NEW ORDERS AT THIS TIME.
--- NOTE | 2020-09-16 10:54 | Infectious Diseases Prog Note ---
Assessment/Plan Assessment/Plan antibiotics : cefepime A 1, citrobacter pneumonia COVID 19 negative 2. + blood cultures with coag neg staph likely contaminated 3. respiratory failure 4. leucocytosis resolved 5. Parkinsons disease P 1. continue cefepime 3 more days 2. will follow up cultures Subjective ROS Limited/Unobtainable: Yes Allergies: Coded Allergies: AMIODARONE (Verified Allergy, Unknown, 09/10/20) LEVOFLOXACIN (Verified Allergy, Unknown, 09/10/20) PENICILLINS (Verified Allergy, Unknown, 09/10/20) Objective Last 24 Hour Vital Signs Date Time Temp Pulse Resp B/P (MAP) Pulse Ox O2 Delivery O2 Flow Rate FiO2 09/16/20 08:00 60 09/16/20 07:00 60 14 126/59 (81) 100 09/16/20 06:30 60 15 09/16/20 06:00 60 14 128/64 (85) 100 09/16/20 05:00 68 16 115/64 (81) 100 09/16/20 04:00 Mechanical Ventilator 09/16/20 04:00 97.7 60 15 97/49 (65) 99 09/16/20 04:00 60 09/16/20 03:14 60 19 40 09/16/20 03:00 60 15 112/63 (79) 100 09/16/20 02:00 72 16 103/56 (72) 100 09/16/20 01:00 60 14 125/59 (81) 100 09/16/20 00:00 97.9 60 14 133/61 (85) 100 09/16/20 00:00 Mechanical Ventilator 09/16/20 00:00 60 09/15/20 23:10 60 14 40 09/15/20 23:00 60 19 134/59 (84) 100 09/15/20 22:00 60 14 150/68 (95) 100 09/15/20 21:00 60 14 146/75 (98) 100 09/15/20 20:53 40 09/15/20 20:00 98.0 60 14 153/70 (97) 100 09/15/20 20:00 61 09/15/20 20:00 Mechanical Ventilator 09/15/20 19:30 60 15 40 09/15/20 18:00 60 14 143/66 (91) 100 09/15/20 17:30 62 14 154/64 (94) 100 09/15/20 17:00 60 14 177/72 (107) 100 09/15/20 16:00 Mechanical Ventilator 09/15/20 16:00 96.8 60 14 164/71 (102) 100 09/15/20 16:00 60 09/15/20 16:00 60 14 129/58 (81) 100 09/15/20 15:29 60 14 40 40 09/15/20 15:00 60 14 162/67 (98) 100 09/15/20 14:00 60 14 164/67 (99) 100 09/15/20 13:30 66 15 128/59 (82) 100 09/15/20 13:00 65 14 132/63 (86) 100 09/15/20 12:00 Mechanical Ventilator 09/15/20 12:00 97.4 67 18 160/70 (100) 100 09/15/20 12:00 64 09/15/20 11:16 64 27 40 40 09/15/20 11:00 62 21 132/65 (87) 100 Height (Feet): 5 Height (Inches): 8.00 Weight (Pounds): 167 HEENT: other - intubated Respiratory/Chest: lungs clear Cardiovascular: normal rate, regular rhythm, no gallop/murmur Abdomen: soft, non tender Extremities: other - + edema, right arm PICC Current Medications Medications (Trade) Dose Ordered Sig/Ryley Route PRN Reason Start Time Stop Time Status Last Admin Dose Admin Carbidopa/Levodopa (Sinemet 25/100) 1 tab THREE TIMES A DAY ORAL 09/11/20 13:00 10/11/20 12:59 09/16/20 09:14 Cefepime HCl 1 gm/ Dextrose 55 ml @ 110 mls/hr Q12H IVPB 09/11/20 04:00 09/18/20 03:59 09/16/20 04:00 Chlorhexidine Gluconate (Roselyn-Hex 2%) 1 applic DAILY@2000 TOPIC 09/11/20 20:00 12/10/20 19:59 09/15/20 20:14 Clonidine HCl (Catapres Tab) 0.1 mg Q4H PRN ORAL SBP>160 09/15/20 07:00 12/14/20 06:59 09/15/20 07:06 Dextrose (Dextrose 50%) 25 ml Q30M PRN IV Hypoglycemia 09/11/20 07:45 12/10/20 07:44 Dextrose (Dextrose 50%) 50 ml Q30M PRN IV Hypoglycemia 09/11/20 07:45 12/10/20 07:44 Levothyroxine Sodium (Synthroid) 88 mcg DAILY@0630 ORAL 09/12/20 06:30 10/12/20 06:29 09/16/20 05:37 Montelukast Sodium (Singulair) 10 mg QPM ORAL 09/11/20 16:30 12/10/20 16:29 09/15/20 16:22 Pantoprazole (Protonix) 40 mg DAILY IVP 09/11/20 22:00 10/11/20 21:59 09/16/20 09:14 Sodium Chloride 1,000 ml @ 75 mls/hr [id number] IV 09/10/20 17:30 10/10/20 17:29 09/16/20 00:37 Tamsulosin HCl (Flomax) 0.4 mg BEDTIME ORAL 09/11/20 21:00 10/11/20 20:59 09/15/20 21:26 Nicola Cisse MD Sep 16, 2020 10:54
--- NOTE | 2020-09-16 11:52 | NUR ---
NURSE NOTES: LATE ENTRY: CALLED AND LEFT MESSAGE FOR MD. BENAVIDEZ, REGARDING PT ABG RESULTS POST PT WEANING SINCE 819 CPAP PS 8. PH: 7.4, PC02 38.5, 02 94.2, HCO3 24.2. AWAITING CALL BACK. CStefanoN JUAQUIN.
--- NOTE | 2020-09-16 12:08 | NUR ---
CASE MANAGEMENT:REVIEW 09/16/20 SI: ACUTE RESPIRATORY FAILURE. INTUBATED ASPIRATION PNA 98.3 60 15 89/47 100% ON 40% FIO2 VIA VENT IS: K-DUR NG X1 IV CEFEPIME Q12 IVF@75/HR IV LASIX X1 SYNTHROID NG QD IV PROTONIX QD FLOMAX PO QHS SINGULAR NG QPM : ICU STATUS [facility]
--- NOTE | 2020-09-16 12:55 | NUR ---
NURSE NOTES: LATE ENTRY: SECOND ATTEMPT MADE TO CONTACT MD. BENAVIDEZ, REGARDING PT WEANING AT PRESENT, PT CURRENTLY IN ACUTE DISTRESS. AWAITING CALL BACK.
--- NOTE | 2020-09-16 13:29 | NUR ---
NURSE NOTES: PT INCREASED RR AND FIGHTING VENT IN CPAP. NO NEW ORDERS FROM MD. BENAVIDEZ. PT PLACED BACK ON AC MODE. C.N AWARE.
--- NOTE | 2020-09-16 14:14 | Cardiology Progress Note ---
Subjective DATE OF SERVICE: Sep 16, 2020 Remains off pressors; still on IVF support BP parameters remain stable. Monitor: Paced rhythm +blood cultures and multiple +sputum pathogens noted. S/P PICC CXR: (09/13/20) Unchg'd left pleural and parenchymal disease. ABG: (09/16) 7.41/38/94 Objective Last 24 Hour Vital Signs Date Time Temp Pulse Resp B/P (MAP) Pulse Ox O2 Delivery O2 Flow Rate FiO2 09/16/20 13:00 74 25 100 09/16/20 12:00 98.1 72 24 106/56 (73) 100 09/16/20 12:00 Mechanical Ventilator 09/16/20 11:15 78 25 40 40 09/16/20 11:00 71 21 115/55 (75) 100 09/16/20 10:00 78 23 94/45 (61) 100 09/16/20 09:53 80 22 101/51 (68) 100 09/16/20 09:51 77 18 86/53 (64) 98 09/16/20 09:00 79 26 89/47 (61) 100 09/16/20 08:20 66 25 40 40 09/16/20 08:20 100 09/16/20 08:00 60 09/16/20 08:00 98.3 60 15 119/56 (77) 100 09/16/20 08:00 Mechanical Ventilator 09/16/20 07:35 67 20 40 09/16/20 07:00 60 14 126/59 (81) 100 09/16/20 06:30 60 15 09/16/20 06:00 60 14 128/64 (85) 100 09/16/20 05:00 68 16 115/64 (81) 100 09/16/20 04:00 Mechanical Ventilator 09/16/20 04:00 97.7 60 15 97/49 (65) 99 09/16/20 04:00 60 09/16/20 03:14 60 19 40 09/16/20 03:00 60 15 112/63 (79) 100 09/16/20 02:00 72 16 103/56 (72) 100 09/16/20 01:00 60 14 125/59 (81) 100 09/16/20 00:00 97.9 60 14 133/61 (85) 100 09/16/20 00:00 Mechanical Ventilator 09/16/20 00:00 60 09/15/20 23:10 60 14 40 09/15/20 23:00 60 19 134/59 (84) 100 09/15/20 22:00 60 14 150/68 (95) 100 09/15/20 21:00 60 14 146/75 (98) 100 09/15/20 20:53 40 09/15/20 20:00 98.0 60 14 153/70 (97) 100 09/15/20 20:00 61 09/15/20 20:00 Mechanical Ventilator 09/15/20 19:30 60 15 40 09/15/20 18:00 60 14 143/66 (91) 100 09/15/20 17:30 62 14 154/64 (94) 100 09/15/20 17:00 60 14 177/72 (107) 100 09/15/20 16:00 Mechanical Ventilator 09/15/20 16:00 96.8 60 14 164/71 (102) 100 09/15/20 16:00 60 09/15/20 16:00 60 14 129/58 (81) 100 09/15/20 15:29 60 14 40 40 09/15/20 15:00 60 14 162/67 (98) 100 09/15/20 14:00 60 14 164/67 (99) 100 ROS: unchanged from my evaluation on 09/10/20. HEENT: Orally intubated, Mechanically Ventilated, Thin secretions ET Tube RHYTHM: other - paced LUNGS: bilateral rhonchi CARDIAC: normal rate, regular rhythm, normal S1 and S2 ABDOMEN: normal bowel sounds, non tender, soft, no organomegaly EXTREMITIES: trace edema, other - adequate distal perfusion Laboratory Tests Test 09/16/20 11:10 Arterial Blood pH 7.410 (7.350-7.450) Arterial Blood Partial Pressure CO2 38.5 mmHg (35.0-45.0) Arterial Blood Partial Pressure O2 94.2 mmHg (75.0-100.0) Arterial Blood HCO3 24.2 mmol/L (22.0-26.0) Arterial Blood Oxygen Saturation 97.3 % (95-100) Arterial Blood Base Excess -0.1 (-2-2) Galile[employer] Test Positive Assessment/Plan Assessment/Plan Sepsis with shock Hypokalemia UTI Respiratory failure HC associated, polymicrobial PNA Pacemaker Ac/chr diastolic CHF with decreasing BNP. Acute myocardial ischemia Lactic acidosis resolved Hypovolemia/dehydration/hypernatremia corrected Severe protein/calorie malnutrition Rhabdomyolysis Possible bacteremia Monitor lytes and replace as needed. Avoid pressors Abx per ID Vent support; wean as able Nutrition per NGTube DVT prophyl Pacemaker eval not needed; pacemaker recently implanted. Periodic diuresis based on clinical parameters; trend BNP Slick Desai MD Sep 16, 2020 14:13
--- NOTE | 2020-09-16 15:00 | NUR ---
NURSE NOTES: LATE ENTRY: PT AWAKE. AFEBRILE. ORAL CARE AND SUCTION PROVIDED. A- PACED ON MONITOR. HR 64, BP 126/57, SP02 100%, RR 14. PT INTUBATED ETT 7.5, 24CM AT LIP. AC 14, VT 500, PEEP 5, FI02 40%. SECRETIONS THICK. BREATH SOUNDS DIMINISHED LOWER LOBES. OGT IN PLACE. PATENT. TUBE FEEDING GLUCERNA 1.5 AT 50ML/HR. NO BM. ABDOMEN LARGE AND ROUND. VIGIL IN PLACE. DRAINING URINE. BELOW BLADDER. IV ACCESS YAO PICC. PATENT. RUNNING AT 1/2 NS AT 75ML/HR. BED IN LOWEST POSITION, LOCKED. BED ALARM ON. SIDE RAILS UP. WILL CONTINUE TO MONITOR.
--- NOTE | 2020-09-16 16:10 | General Progress Note ---
Subjective Allergies: Coded Allergies: AMIODARONE (Verified Allergy, Unknown, 09/10/20) LEVOFLOXACIN (Verified Allergy, Unknown, 09/10/20) PENICILLINS (Verified Allergy, Unknown, 09/10/20) Subjective above noted d/w public health staff nurse tolerating TF more awake (R) UE blistered Objective Last 24 Hour Vital Signs Date Time Temp Pulse Resp B/P (MAP) Pulse Ox O2 Delivery O2 Flow Rate FiO2 09/16/20 15:00 69 14 109/50 (69) 100 09/16/20 14:04 74 14 98/43 (61) 100 09/16/20 14:00 76 15 79/53 (62) 100 09/16/20 13:00 74 25 100 09/16/20 12:00 98.1 72 24 106/56 (73) 100 09/16/20 12:00 Mechanical Ventilator 09/16/20 12:00 78 09/16/20 11:15 78 25 40 40 09/16/20 11:00 71 21 115/55 (75) 100 09/16/20 10:00 78 23 94/45 (61) 100 09/16/20 09:53 80 22 101/51 (68) 100 09/16/20 09:51 77 18 86/53 (64) 98 09/16/20 09:00 79 26 89/47 (61) 100 09/16/20 08:20 66 25 40 40 09/16/20 08:20 100 09/16/20 08:00 60 09/16/20 08:00 98.3 60 15 119/56 (77) 100 09/16/20 08:00 Mechanical Ventilator 09/16/20 07:35 67 20 40 09/16/20 07:00 60 14 126/59 (81) 100 09/16/20 06:30 60 15 09/16/20 06:00 60 14 128/64 (85) 100 09/16/20 05:00 68 16 115/64 (81) 100 09/16/20 04:00 Mechanical Ventilator 09/16/20 04:00 97.7 60 15 97/49 (65) 99 09/16/20 04:00 60 09/16/20 03:14 60 19 40 09/16/20 03:00 60 15 112/63 (79) 100 09/16/20 02:00 72 16 103/56 (72) 100 09/16/20 01:00 60 14 125/59 (81) 100 09/16/20 00:00 97.9 60 14 133/61 (85) 100 09/16/20 00:00 Mechanical Ventilator 09/16/20 00:00 60 09/15/20 23:10 60 14 40 09/15/20 23:00 60 19 134/59 (84) 100 09/15/20 22:00 60 14 150/68 (95) 100 09/15/20 21:00 60 14 146/75 (98) 100 09/15/20 20:53 40 09/15/20 20:00 98.0 60 14 153/70 (97) 100 09/15/20 20:00 61 09/15/20 20:00 Mechanical Ventilator 09/15/20 19:30 60 15 40 09/15/20 18:00 60 14 143/66 (91) 100 09/15/20 17:30 62 14 154/64 (94) 100 09/15/20 17:00 60 14 177/72 (107) 100 Intake and Output 09/15/20 09/16/20 19:00 07:00 Intake Total 1530 ml 1468.75 ml Output Total 695 ml 845 ml Balance 835 ml 623.75 ml Intake Free Water 200 ml 60 ml IV Total 730 ml 908.75 ml Tube Feeding 600 ml 500 ml Output Urine Total 695 ml 845 ml Laboratory Tests 09/16/20 11:10: Arterial Blood pH 7.410, Arterial Blood Partial Pressure CO2 38.5, Arterial Blood Partial Pressure O2 94.2, Arterial Blood HCO3 24.2, Arterial Blood Oxygen Saturation 97.3, Arterial Blood Base Excess -0.1, Galileo Test Positive Height (Feet): 5 Height (Inches): 8.00 Weight (Pounds): 167 Objective Debilitated woman seen in ICU Intubated resting comfortably awake interactive NCAT supple Coarse BS RR abd soft ext (R) arm blisters trace edema Assessment/Plan Status: stable, progressing Assessment/Plan: Assessment - minimal anemia - resp failure - DJD spine, spinal stenosis - Pancreatitis - PUD - Atrial fib - off anticoagulation - History of degenerative disc disease, spinal stenosis Recommendations - continue TF via NGT - vent care - follow labs - elevate HOB - abx - I will return to see pt Cece Uribe MD Sep 16, 2020 16:10
[2020-09-16] MEDS: Montelukast 10mg tablet ORAL SCH (17:27)
--- NOTE | 2020-09-16 17:42 | NUR ---
NURSE NOTES: LATE ENTRY; RECEIVED CALL BACK FROM MD BENAVIDEZ. REGARDING PT OUTCOME WITH WEANING. PT WS PLACED BACK ON AC MODE AROUND 1300, WAS GETTING TIRED, VS CHANGING. WILL TRY AGAIN IN AM.
--- NOTE | 2020-09-16 17:44 | NUR ---
NURSE NOTES: TECH HERE TO DO LOWER EXTREMITY DUPLEX. PT IN NO ACUTE DISTRESS.
--- NOTE | 2020-09-16 19:12 | NUR ---
NURSE HAND-OFF REPORT: Latest Vital Signs: Temperature 98.3 , Pulse 80 , B/P 150 /79 , Respiratory Rate 15 , O2 SAT 100 , Mechanical Ventilator, O2 Flow Rate 15.0 . Vital Sign Comment: EKG Rhythm: A-Paced Rhythm change?: N MD Notified?: - MD Response: Latest Swartz Fall Score: 70 Fall Risk: High Risk Safety Measures: Call light Within Reach, Bed Alarm Zone 1, Side Rails Side Rails x2, Bed position Low and Locked. Fall Precautions: Door Sign Report given to SHERI OSHEA
--- NOTE | 2020-09-16 19:30 | NUR ---
NURSE NOTES: Received report from Everardo OSHEA.
--- NOTE | 2020-09-16 20:00 | NUR ---
Nurse Notes: Patient with eyes open, nonverbal. Orally intubated 7.5 ETT at 24cm lipline on ventilator AC 14 TV 500 FiO2 40% PEEP 5, satting 100%. HOB elevated. A-paced on cardiac rehab nurse HR 71. Right upper arm PICC infusing 1/2 NS @ 75ml/hr with BUE edema hematoma with closed blood blisters noted. OGT running Glucerna 1.5 @50ml/hr, no residual. Howe catheter draining yellow urine. on P200 mattress for wound management. bed alarm on. bed locked and in low position.patient repositioned and oral care provided. will continue plan of care.
[2020-09-16] MEDS: Dyna-Hex 2% Top Sol 2oz TOPIC SCH (20:13)
[2020-09-16] MEDS: Tamsulosin 0.4mg cap ORAL SCH (20:14)
--- NOTE | 2020-09-16 22:00 | NUR ---
NURSE NOTES: Turned and repositioned patient in bed. no s/s of acute distress noted. on P200 mattress for wound management. will continue plan of care.
[2020-09-17] VITALS (13 sets, daily range): BP systolic 71–156; BP diastolic 11–83
--- NOTE | 2020-09-17 | NUR ---
NURSE NOTES: Bed bath given tolerated well.
--- NOTE | 2020-09-17 02:00 | NUR ---
NURSE NOTES: Patient in bed sleeping comfortably. easily arousable to verbal and tactile stimuli. No s/s of acute distress noted. Fi02 40% satting 98%. HOB elevated, OGT intact no residual. Turned and repositioned patient in bed. suctioned patient. will continue plan of care.
[2020-09-17] MEDS: Cefepime HCl 1 GM in D5W 55 ML IVPB SCH (03:15)
--- NOTE | 2020-09-17 04:15 | NUR ---
NURSE NOTES: RT at bedside noted patient with gurgling sounds desat to 91% noted patient with no breath sounds on abdominal area and distended, decrease breath sounds on left chest, Called ER MD for possible ETT balloon leak. Dr. aYnez came Reintubated 7.5/ 24cm lip line.Removed previous OGT and reinserted new OGT. Called radiologist for stat xray.
[2020-09-17] MEDS ORDERED: Midazolam 2mg/2ml Inj ONE (04:42)
[2020-09-17] MEDS ORDERED: Midazolam 2mg/2ml Inj IVP SCH (04:45)
--- NOTE | 2020-09-17 05:14 | Diagnostic Imaging Report ---
EXAM: XR Chest, 1 View CLINICAL HISTORY: S/P INTUB TECHNIQUE: Frontal view of the chest. COMPARISON: Chest radiograph dated 09/10/2020. FINDINGS: Patient is rotated and the head is rotated. Endotracheal tube tip projects between the upper clavicular heads. Unable to visualized the gorge due to patient positioning and unable to measure distance of tip to gorge. Nasogastric tube is subdiaphragmatic but tip is not visualized. Left dual-lead cardiac pacer is in place. Lungs are markedly hypoinflated. Left lung hazy opacity. Right lung is clear. No large pneumothorax. No acute skeletal findings. Gaseous distended stomach is noted. IMPRESSION: 1. Endotracheal tube tip projects between the clavicular heads. The gorge is not visualized and unable to measure distance of endotracheal tube tip to gorge. Recommend auscultation to ensure symmetric breath sounds. 2. Nasogastric tube is subdiaphragmatic but tip is not visualized. 3. Hypoinflation and diffuse left lung hazy opacity. The left lung hazy opacity may represent layering pleural effusion, atelectasis and/or infiltrate.
[2020-09-17] MEDS ORDERED: Lidocaine 1% Plain 30 ml INJ SCH (05:15)
--- NOTE | 2020-09-17 05:30 | NUR ---
NURSE NOTES: Dr. Yanez came and performed chest tube insertion for Tension Pneumothorax. Confirmed with chest xray. patient awake,alert arousable to verbal and tactile stimuli. no s/s of acute distress noted. saturation Above 95%. will continue to monitor patient.
--- NOTE | 2020-09-17 05:58 | Emergency Room Report ---
History of Present Illness General Chief Complaint: Dyspnea/Respdistress Source: EMS Present Illness HPI This is an 89-year-old Amharic male who was admitted to ICU with respiratory failure from septic shock. He also had acute myocardial infarction. He was currently intubated. He was on pressors but that was weaned off. I was called to evaluate the patient for malfunction of the endotracheal tube. Patient was not getting Valium because there appeared to be a leak. On my arrival patient is on the ventilator. He is somewhat awake. He has some rhonchorous breath sound. Area was an obvious leak to the balloon of the endotracheal tube. When this inflated it would quickly deflated. I exchanged the endotracheal tube with a new one using a bougie. After chest x-ray was done it showed that patient had a pneumothorax. I then proceeded to place a chest tube. During the process of placing a chest tube there was amount 2 to 300 cc of pleural effusion that was evacuated. Chest tube was placed to a Pleur-evac. Patient remained hemodynam ically stable throughout the whole procedure. 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 COVID-19 Screening: Negative COVID-19 COVID-19 Testing Source: unknown Nursing Documentation-PMH Hx Cardiac Problems: Yes - sepsis, pneumonia, UTI, a-fib,hypothyroidism, CHF Hx Hypertension: Yes Hx Pacemaker: Yes - 2'tachy vaughn syndrome Hx Asthma: Yes Hx COPD: Yes Physical Exam Vital Signs Date Time Temp Pulse Resp B/P (MAP) Pulse Ox O2 Delivery O2 Flow Rate FiO2 09/13/20 07:00 60 18 129/57 (81) 100 09/13/20 07:30 40 09/13/20 08:00 98.5 09/13/20 08:00 Mechanical Ventilator Procedures Chest Tube Chest Tube : Consent: Emergent Chest Tube Location: forth interspace Size of Martiniquais Tube (cm): 24 Anesthesia: 1% Lidocaine w/ Epi Volume Anesthetic (ccs): 15 Lyons of Air [place]: Yes Number of Attempts: One Tube Drainage: see nurses notes Tube Sutured to Skin: Yes Post Procedure CXR?: Yes Patient Tolerated: Well Complications: None Progress Area cleaned with Betadine. I made a 3 cm incision at the fourth intercostal space at the midaxillary line. I bluntly dissected to the rib. Using a large Leta forceps, pleural space was encountered. I placed a 24 Martiniquais chest tube. There was a gush of pleural effusion. There was connected to a Pleur-evac. Suture into place. X-ray confirmed placement. Patient tolerated surgery without any problem. Intubation Intubation : Consent: Verbal Intubation Method: orotracheal Tube Size (cm): 7.5 Breath Sounds after Intubation: equal Intubation Complications: no complications Post Intubation Xray: Yes Progress/Xray Impression: Tension pneumothorax Attempts: One Patient Tolerated: Well Complications: None Progress I confirmed that old endotracheal tube past balloon leak. I placed a bougie through the oral endotracheal tube and remove it. And I placed a new 7.5 endotracheal through through the bougie. It was inflated at 24 cm at the lip. There was decreased breath sound on the left. Equal breath sounds on the right. There is no breath sound in the epigastric area. Medical Decision Making Diagnostic Impression: Primary Impression: Respiratory failure Additional Impressions: Elevated d-dimer Elevated troponin UTI (urinary tract infection) Pneumonia Chest X-Ray Diagnostic Results Chest X-Ray Diagnostic Results #1: Chest X-Ray Ordered: Yes # of Views/Limited/Complete: 1 View Indication: Shortness of Breath EP Interpretation: Yes Interpretation: other - Pneumothorax. Endotracheal tube in good position. Pleural effusion. Impression: Other - Tension pneumothorax Electronically Signed by: Antoni Yanez MD Chest X-Ray Diagnostic Results #2: Chest X-Ray Ordered: Yes # of Views/Limited/Complete: 1 View Indication: Shortness of Breath EP Interpretation: Yes Interpretation: no consolidation, no pneumothorax, other - Status post intubation. Status post chest tube. Pneumothorax resolved. Impression: Other - s/p CT. PTX resolved. Electronically Signed by: Antoni Yanez MD Last Vital Signs Date Time Temp Pulse Resp B/P (MAP) Pulse Ox O2 Delivery O2 Flow Rate FiO2 09/17/20 04:00 98.1 92 20 125/75 (92) 97 09/17/20 03:50 100 09/17/20 00:00 Mechanical Ventilator Status: improved Disposition: ADMITTED INPATIENT Condition: Critical Referrals: NON PHYSICIAN (PCP) Antoni Yanez MD Sep 17, 2020 05:58
[2020-09-17 05:59] LABS: EOSINOPHILS % (AUTO) 2.2 % (0.0-3.0); HEMOGLOBIN 12.1 G/DL (14.2-18.0); LYMPHOCYTES % (AUTO) 15.4 % (20.0-45.0); MEAN CORPUSCULAR VOLUME 86 FL (80-99); MONOCYTES % (AUTO) 7.1 % (1.0-10.0); NEUTROPHILS % (AUTO) 74.2 % (45.0-75.0); PLATELET COUNT 135 K/UL (150-450); RED BLOOD COUNT 4.21 M/UL (4.70-6.10); RED CELL DISTRIBUTION WIDTH 13.5 % (11.6-14.8)
[2020-09-17 06:12] LABS: ALANINE AMINOTRANSFERASE 15 U/L (12-78); ALBUMIN 1.9 G/DL (3.4-5.0); ALBUMIN/GLOBULIN RATIO 0.5 (1.0-2.7); ALKALINE PHOSPHATASE 122 U/L (46-116); ANION GAP 5 mmol/L (5-15); ASPARTATE AMINO TRANSFERASE 24 U/L (15-37); BILIRUBIN,TOTAL 0.2 MG/DL (0.2-1.0); BLOOD UREA NITROGEN 17 mg/dL (7-18); CARBON DIOXIDE 27 MMOL/L (21-32); CHLORIDE 101 MMOL/L (98-107); CREATININE 0.8 MG/DL (0.55-1.30); POTASSIUM 4.5 MMOL/L (3.5-5.1); SODIUM 133 MMOL/L (136-145)
--- NOTE | 2020-09-17 06:15 | Diagnostic Imaging Report ---
EXAM: XR Chest, 1 View CLINICAL HISTORY: TUBE PLCMT TECHNIQUE: Frontal view of the chest. COMPARISON: Chest radiograph dated 09/10/2020 and 09/17/2020. FINDINGS: There has been placement of a left chest tube. Subcutaneous emphysema is seen adjacent to the chest tube. There has been interval improvement of the left lung aeration. Endotracheal tube tip projects 3 cm above the gorge. Nasogastric tube tip projects at the mid stomach. Right PICC tip projects at the upper SVC. Left dual-lead cardiac pacer similar to comparison. The lungs are hypoinflated. No pneumothorax. Right perihilar opacity is noted. IMPRESSION: 1. Interval placement of a left chest tube. Interval improvement of the left lung aeration. 2. Right perihilar opacity may represent focal infiltrate, atelectasis, or summation of shadows.
--- NOTE | 2020-09-17 06:30 | NUR ---
NURSE NOTES: Complete bed bath and complete bed changed done.
--- NOTE | 2020-09-17 07:30 | NUR ---
HAND-OFF: Report given to Everardo OSHEA.
--- NOTE | 2020-09-17 07:40 | NUR ---
NURSE NOTES: LATE ENTRY: RECEIVED REPORT FROM CHRIS. RN. FATIGUED, PT OPENS EYES TO NAME. AFEBRILE. PUPILS 3MM SLUGGISH. A- PACED ON MONITOR. HR 96, BP 156/83, SP02 99%, RR 28. PT REINTUBATED ETT 7.5, 24CM AT LIP. AC 14, VT 500, PEEP 5, FI02 40%. SECRETIONS THICK. BREATH SOUNDS DIMINISHED BILATERAL UPPER LOWER LOBES, ABSENT LOWER LOBE LEFT SIDE. NOTED CHEST TUBE LEFT SIDE. CONNECTED TO LOW INTERMITTENT SUCTION, DRAINING SANGUINOUS FLIUD. OGT IN PLACE. PATENT. TUBE FEEDING JHELD FOR F/U KUB. NO BM. ABDOMEN LARGE AND DISTENDED. BOWEL SOUNDS HYPOACTIVE, ALL QUADRANTS. BLADDER FLAT, VIGIL IN PLACE. DRAINING YELLOW URINE. BELOW BLADDER. SCROTAL EDEMA NOTED. SKIN- SEE ASSESSMENT. IV ACCESS YAO PICC. PATENT. RUNNING AT 1/2 NS AT 75ML/HR. STANDARD ISOLATION IN PLACE. BED IN LOWEST POSITION, LOCKED. BED ALARM ON. SIDE RAILS UP. WILL CONTINUE TO MONITOR.
--- NOTE | 2020-09-17 07:48 | General Progress Note ---
Subjective ROS Limited/Unobtainable: No Allergies: Coded Allergies: AMIODARONE (Verified Allergy, Unknown, 09/10/20) LEVOFLOXACIN (Verified Allergy, Unknown, 09/10/20) PENICILLINS (Verified Allergy, Unknown, 09/10/20) Objective Last 24 Hour Vital Signs Date Time Temp Pulse Resp B/P (MAP) Pulse Ox O2 Delivery O2 Flow Rate FiO2 09/17/20 07:00 96 23 131/75 (93) 98 09/17/20 06:30 60 15 09/17/20 06:00 110 21 104/55 (71) 98 09/17/20 05:00 89 22 101/72 (82) 95 09/17/20 04:00 40 09/17/20 04:00 Mechanical Ventilator 09/17/20 04:00 98.1 92 20 125/75 (92) 97 09/17/20 04:00 89 09/17/20 03:50 82 20 100 09/17/20 03:00 77 14 101/79 (86) 100 09/17/20 02:00 82 17 147/66 (93) 100 09/17/20 01:00 70 17 139/60 (86) 100 09/17/20 00:00 40 09/17/20 00:00 71 09/17/20 00:00 Mechanical Ventilator 09/17/20 00:00 98.4 68 18 127/64 (85) 100 09/16/20 23:28 69 18 40 09/16/20 23:00 71 17 135/61 (85) 100 09/16/20 22:00 69 16 124/66 (85) 100 09/16/20 21:00 70 16 127/67 (87) 99 09/16/20 20:00 Mechanical Ventilator 09/16/20 20:00 81 09/16/20 20:00 71 09/16/20 20:00 40 09/16/20 20:00 98.0 73 15 137/63 (87) 100 09/16/20 19:27 72 18 40 09/16/20 19:00 80 15 150/79 (102) 100 09/16/20 18:00 78 17 113/68 (83) 100 09/16/20 17:00 79 17 144/62 (89) 100 09/16/20 16:00 60 09/16/20 16:00 Mechanical Ventilator 09/16/20 16:00 98.3 71 17 126/57 (80) 100 09/16/20 15:30 73 14 40 09/16/20 15:00 69 14 109/50 (69) 100 09/16/20 14:04 74 14 98/43 (61) 100 09/16/20 14:00 76 15 79/53 (62) 100 09/16/20 13:00 74 25 100 09/16/20 12:00 98.1 72 24 106/56 (73) 100 09/16/20 12:00 Mechanical Ventilator 09/16/20 12:00 78 09/16/20 11:15 78 25 40 40 09/16/20 11:00 71 21 115/55 (75) 100 09/16/20 10:00 78 23 94/45 (61) 100 09/16/20 09:53 80 22 101/51 (68) 100 09/16/20 09:51 77 18 86/53 (64) 98 09/16/20 09:00 79 26 89/47 (61) 100 09/16/20 08:20 66 25 40 40 09/16/20 08:20 100 09/16/20 08:00 60 09/16/20 08:00 98.3 60 15 119/56 (77) 100 09/16/20 08:00 Mechanical Ventilator Intake and Output 09/16/20 09/17/20 19:00 07:00 Intake Total 1125 ml 1682 ml Output Total 920 ml 1625 ml Balance 205 ml 57 ml Intake Free Water 200 ml IV Total 935 ml 922 ml Tube Feeding 190 ml 500 ml Other 60 ml Output Urine Total 920 ml 1590 ml Chest Tube Drainage Total 35 ml # Bowel Movements 1 Laboratory Tests 09/16/20 11:10: Arterial Blood pH 7.410, Arterial Blood Partial Pressure CO2 38.5, Arterial Blood Partial Pressure O2 94.2, Arterial Blood HCO3 24.2, Arterial Blood Oxygen Saturation 97.3, Arterial Blood Base Excess -0.1, Galileo Test Positive 09/17/20 04:30: White Blood Count 9.0, Red Blood Count 4.21L, Hemoglobin 12.1L, Hematocrit 36.0L , Mean Corpuscular Volume 86, Mean Corpuscular Hemoglobin 28.8, Mean Corpuscular Hemoglobin Concent 33.6, Red Cell Distribution Width 13.5, Platelet Count 135L, Mean Platelet Volume 7.6, Neutrophils (%) (Auto) 74.2, Lymphocytes (%) (Auto) 15.4L, Monocytes (%) (Auto) 7.1, Eosinophils (%) (Auto) 2.2, Basophils (%) (Auto) 1.0, Sodium Level 133L, Potassium Level 4.5, Chloride Level 101, Carbon Dioxide Level 27, Anion Gap 5, Blood Urea Nitrogen 17, Creatinine 0.8, Estimat Glomerular Filtration Rate > 60, Glucose Level 212H, Calcium Level 8.0L, Magnesium Level 2.1, Total Bilirubin 0.2, Aspartate Amino Transf (AST/SGOT) 24, Alanine Aminotransferase (ALT/SGPT) 15, Alkaline Phosphatase 122H, Pro-B-Type Natriuretic Peptide 1633H, Total Protein 5.4L, Albumin 1.9L, Globulin 3.5, Albumin/Globulin Ratio 0.5L Height (Feet): 5 Height (Inches): 8.00 Weight (Pounds): 167 General Appearance: lethargic EENT: normal ENT inspection Neck: supple Cardiovascular: tachycardia Respiratory/Chest: decreased breath sounds Abdomen: hypoactive bowel sounds Extremities: non-tender Assessment/Plan Status: stable, progressing Assessment/Plan: Assessment - minimal anemia - resp failure - DJD spine, spinal stenosis - Pancreatitis - PUD - Atrial fib - off anticoagulation - History of degenerative disc disease, spinal stenosis Recommendations - continue TF via NGT - vent care - follow labs - elevate HOB - abx Weston Gant MD Sep 17, 2020 07:48
--- NOTE | 2020-09-17 08:00 | NUR ---
NURSE NOTES: PT IN BED, ET-TUBE SECRETIONS THICK, ORAL CARE PROVIDED. HOB 35>. OGT SECURED. WEAK COUGH NOTED. CHEST TUBE SECURED. CONNECTED TO WALL SUCTION. SANGUINOUS DRAINAGE.
--- NOTE | 2020-09-17 08:19 | NUR ---
NURSE NOTES: Notify family Lisa daughter with patient emergency ETT reintubation and chest tube insertion, family verbalizes understanding verbalizes appreciation of notification. patient in bed no s/s of acute distress.
[2020-09-17] MEDS: Levodopa/Carbidopa 25/100 tab ORAL SCH (08:20)
[2020-09-17] MEDS: Pantoprazole Inj IVP SCH (08:20)
[2020-09-17] MEDS ORDERED: NS 275ml ONE ×2 (09:16→09:17)
[2020-09-17] MEDS ORDERED: 1/2 NS 1000ml IV ONE ×2 (09:16→09:17)
[2020-09-17] MEDS ORDERED: Tubing IV Secondary IV ONE (09:17)
--- NOTE | 2020-09-17 09:18 | Pulmonolgy Critical Care Note ---
Critical Care - Asmt/Plan Assessment/Plan: Pulmonary CCM Progress Note Assessment/Plan Assessment/Plan ASSESSMENT: Acute respiratory failure due to aspiration pneumonia, s/p chest tube, urinary tract infection, pacemaker,leukocytosis with possible sepsis , atrial fibrillation, asthma, UTI, severe PCM PLAN care noted IV antibiotics respiratory care Ventilatory support SNF meds supportive care suction DVT prophylaxis wean as able oxygen therapy as needed prognosis guarded off load position change ICU care reviewed medications/laboratory data/nursing notes/ICU care reviewed in detail note reviewed and edited care discussed with RN and RT ICU time spent >90 minutes Critical Care - Subjective Interval Events: still on full support care noted sp chest tube RT care reviewed ICU care reviewed ROS Limited/Unobtainable: Yes Condition: critical EKG Rhythm: Sinus Rhythm Residuals: minimal Tube Feeding Tolerated: yes Critical Care - Objective ET-Tube: 7.5 ET Position: 24 Vital Signs Noted Labs: noted Objective: WDWN NAD orally intubated ETT reduced breath sounds bilaterally without rhonchi or wheeze, chest tube [id number] without MRG NABS nontender no HSM no CCE nonfocal poor LOC feeding tube in place skin noted Seen earlier Critical Care - Objective Last 24 Hour Vital Signs Date Time Temp Pulse Resp B/P (MAP) Pulse Ox O2 Delivery O2 Flow Rate FiO2 09/17/20 07:00 96 23 131/75 (93) 98 09/17/20 06:30 60 15 09/17/20 06:00 110 21 104/55 (71) 98 09/17/20 05:00 89 22 101/72 (82) 95 09/17/20 04:00 40 09/17/20 04:00 Mechanical Ventilator 09/17/20 04:00 98.1 92 20 125/75 (92) 97 09/17/20 04:00 89 09/17/20 03:50 82 20 100 09/17/20 03:00 77 14 101/79 (86) 100 09/17/20 02:00 82 17 147/66 (93) 100 09/17/20 01:00 70 17 139/60 (86) 100 09/17/20 00:00 40 09/17/20 00:00 71 09/17/20 00:00 Mechanical Ventilator 09/17/20 00:00 98.4 68 18 127/64 (85) 100 09/16/20 23:28 69 18 40 09/16/20 23:00 71 17 135/61 (85) 100 09/16/20 22:00 69 16 124/66 (85) 100 09/16/20 21:00 70 16 127/67 (87) 99 09/16/20 20:00 Mechanical Ventilator 09/16/20 20:00 81 09/16/20 20:00 71 09/16/20 20:00 40 09/16/20 20:00 98.0 73 15 137/63 (87) 100 09/16/20 19:27 72 18 40 09/16/20 19:00 80 15 150/79 (102) 100 09/16/20 18:00 78 17 113/68 (83) 100 09/16/20 17:00 79 17 144/62 (89) 100 09/16/20 16:00 60 09/16/20 16:00 Mechanical Ventilator 09/16/20 16:00 98.3 71 17 126/57 (80) 100 09/16/20 15:30 73 14 40 09/16/20 15:00 69 14 109/50 (69) 100 09/16/20 14:04 74 14 98/43 (61) 100 09/16/20 14:00 76 15 79/53 (62) 100 09/16/20 13:00 74 25 100 09/16/20 12:00 98.1 72 24 106/56 (73) 100 09/16/20 12:00 Mechanical Ventilator 09/16/20 12:00 78 09/16/20 11:15 78 25 40 40 09/16/20 11:00 71 21 115/55 (75) 100 09/16/20 10:00 78 23 94/45 (61) 100 09/16/20 09:53 80 22 101/51 (68) 100 09/16/20 09:51 77 18 86/53 (64) 98 Critical Care - Subjective ROS Limited/Unobtainable: Yes Condition: stable FI02: 40 Vent Support Breath Rate: 14 Vent Support Mode: AC Vent Tidal Volume: 500 Sputum Amount: Large PEEP: 5.0 PIP: 20 Tube Feeding Amount: 50 I&O: Intake and Output 09/16/20 09/17/20 19:00 07:00 Intake Total 1125 ml 1757 ml Output Total 920 ml 1625 ml Balance 205 ml 132 ml Intake Free Water 200 ml IV Total 935 ml 997 ml Tube Feeding 190 ml 500 ml Other 60 ml Output Urine Total 920 ml 1590 ml Chest Tube Drainage Total 35 ml # Bowel Movements 1 ET-Tube: 7.5 ET Position: 24 Slick Cleary MD Sep 17, 2020 09:18
--- NOTE | 2020-09-17 09:55 | NUR ---
NURSE NOTES: LATE ENTRY: ENTERED PT ROOM, TO ASSESS VENTILATOR ALARM SOUNDING. R.T AND C.N AT BEDSIDE, SUCTIONING PT. SATURATIONS 75%. RR 14. PT WITH ORAL SECRETIONS PRESENT. RT WORKED TO CLEAR MUCUS PLUG. SATURATION IMPROVED SLIGHTLY. LUNG SOUNDS ABSENT ON LEFT LOWER LOBE. DRAINAGE INTO CHEST TUBE NOTED, NO CHANGE. PT NOT RESPONSIVE, WITH STERNAL RUB. HR REMAIN THE SAME 60-75. ASSESSED FEMORAL PULSE, USED DOPPLER. CODE CALLED.
--- NOTE | 2020-09-17 10:07 | NUR ---
CODE BLUE: See Code sheet which remains on paper.
[2020-09-17] MEDS ORDERED: Calcium Chloride 10% 10ml carpuject IVP ONE (10:20)
[2020-09-17] MEDS ORDERED: Sodium Bicarbonate 50ml Carp ONE (10:20)
[2020-09-17] MEDS ORDERED: Atropine Inj 1mg/10ml Syr ONE (10:20)
--- NOTE | 2020-09-17 10:26 | Cardiology Progress Note ---
Subjective DATE OF SERVICE: Sep 17, 2029 Doing poorly. Developed cuff leak last nite, and req'd reintubation with subsequent left pneumothorax noted. Chest tube place. Now persistently hypotensive. Monitor: Paced rhythm +blood cultures and multiple +sputum pathogens noted. CXR: Left chest tube with right perihilar infiltrate Objective Last 24 Hour Vital Signs Date Time Temp Pulse Resp B/P (MAP) Pulse Ox O2 Delivery O2 Flow Rate FiO2 09/17/20 09:00 60 28 134/76 (95) 99 09/17/20 08:00 95 28 156/83 (107) 99 09/17/20 08:00 97 09/17/20 07:30 96 21 100 09/17/20 07:00 96 23 131/75 (93) 98 09/17/20 06:30 60 15 09/17/20 06:00 110 21 104/55 (71) 98 09/17/20 05:00 89 22 101/72 (82) 95 09/17/20 04:00 40 09/17/20 04:00 Mechanical Ventilator 09/17/20 04:00 98.1 92 20 125/75 (92) 97 09/17/20 04:00 89 09/17/20 03:50 82 20 100 09/17/20 03:00 77 14 101/79 (86) 100 09/17/20 02:00 82 17 147/66 (93) 100 09/17/20 01:00 70 17 139/60 (86) 100 09/17/20 00:00 40 09/17/20 00:00 71 09/17/20 00:00 Mechanical Ventilator 09/17/20 00:00 98.4 68 18 127/64 (85) 100 09/16/20 23:28 69 18 40 09/16/20 23:00 71 17 135/61 (85) 100 09/16/20 22:00 69 16 124/66 (85) 100 09/16/20 21:00 70 16 127/67 (87) 99 09/16/20 20:00 Mechanical Ventilator 09/16/20 20:00 81 09/16/20 20:00 71 09/16/20 20:00 40 09/16/20 20:00 98.0 73 15 137/63 (87) 100 09/16/20 19:27 72 18 40 09/16/20 19:00 80 15 150/79 (102) 100 09/16/20 18:00 78 17 113/68 (83) 100 09/16/20 17:00 79 17 144/62 (89) 100 09/16/20 16:00 60 09/16/20 16:00 Mechanical Ventilator 09/16/20 16:00 98.3 71 17 126/57 (80) 100 09/16/20 15:30 73 14 40 09/16/20 15:00 69 14 109/50 (69) 100 09/16/20 14:04 74 14 98/43 (61) 100 09/16/20 14:00 76 15 79/53 (62) 100 09/16/20 13:00 74 25 100 09/16/20 12:00 98.1 72 24 106/56 (73) 100 09/16/20 12:00 Mechanical Ventilator 09/16/20 12:00 78 09/16/20 11:15 78 25 40 40 09/16/20 11:00 71 21 115/55 (75) 100 ROS: unchanged from my evaluation on 09/10/20. HEENT: Orally intubated, Mechanically Ventilated, Thin secretions ET Tube RHYTHM: other - paced LUNGS: bilateral rhonchi CARDIAC: normal rate, regular rhythm, normal S1 and S2 ABDOMEN: normal bowel sounds, non tender, soft, no organomegaly EXTREMITIES: normal inspection - picc line , trace edema, other - adequate distal perfusion Laboratory Tests Test 09/16/20 11:10 09/17/20 04:30 Arterial Blood pH 7.410 (7.350-7.450) Arterial Blood Partial Pressure CO2 38.5 mmHg (35.0-45.0) Arterial Blood Partial Pressure O2 94.2 mmHg (75.0-100.0) Arterial Blood HCO3 24.2 mmol/L (22.0-26.0) Arterial Blood Oxygen Saturation 97.3 % (95-100) Arterial Blood Base Excess -0.1 (-2-2) Galileo Test Positive White Blood Count 9.0 K/UL (4.8-10.8) Red Blood Count 4.21 M/UL (4.70-6.10) L Hemoglobin 12.1 G/DL (14.2-18.0) L Hematocrit 36.0 % (42.0-52.0) L Mean Corpuscular Volume 86 FL (80-99) Mean Corpuscular Hemoglobin 28.8 PG (27.0-31.0) Mean Corpuscular Hemoglobin Concent 33.6 G/DL (32.0-36.0) Red Cell Distribution Width 13.5 % (11.6-14.8) Platelet Count 135 K/UL (150-450) L Mean Platelet Volume 7.6 FL (6.5-10.1) Neutrophils (%) (Auto) 74.2 % (45.0-75.0) Lymphocytes (%) (Auto) 15.4 % (20.0-45.0) L Monocytes (%) (Auto) 7.1 % (1.0-10.0) Eosinophils (%) (Auto) 2.2 % (0.0-3.0) Basophils (%) (Auto) 1.0 % (0.0-2.0) Sodium Level 133 MMOL/L (136-145) L Potassium Level 4.5 MMOL/L (3.5-5.1) Chloride Level 101 MMOL/L (98-107) Carbon Dioxide Level 27 MMOL/L (21-32) Anion Gap 5 mmol/L (5-15) Blood Urea Nitrogen 17 mg/dL (7-18) Creatinine 0.8 MG/DL (0.55-1.30) Estimat Glomerular Filtration Rate > 60 mL/min (>60) Glucose Level 212 MG/DL (74-106) H Calcium Level 8.0 MG/DL (8.5-10.1) L Magnesium Level 2.1 MG/DL (1.8-2.4) Total Bilirubin 0.2 MG/DL (0.2-1.0) Aspartate Amino Transf (AST/SGOT) 24 U/L (15-37) Alanine Aminotransferase (ALT/SGPT) 15 U/L (12-78) Alkaline Phosphatase 122 U/L (46-116) H Pro-B-Type Natriuretic Peptide 1633 pg/mL (0-125) H Total Protein 5.4 G/DL (6.4-8.2) L Albumin 1.9 G/DL (3.4-5.0) L Globulin 3.5 g/dL Albumin/Globulin Ratio 0.5 (1.0-2.7) L Assessment/Plan Assessment/Plan Sepsis with shock Left pneumothorax, s/p chest tube Hypokalemia UTI Respiratory failure HC associated, polymicrobial PNA Pacemaker Ac/chr diastolic CHF with decreasing BNP. Acute myocardial ischemia Lactic acidosis resolved Hypovolemia/dehydration/hypernatremia corrected Severe protein/calorie malnutrition Rhabdomyolysis Possible bacteremia Chest tube management Pressor support Monitor lytes and replace as needed. Abx per ID Vent support; wean as able Nutrition per NGTube DVT prophyl Pacemaker eval not needed; pacemaker recently implanted. No diuresis at this time. Family members made aware of critical condition and grave prognosis. Slick Desai MD Sep 17, 2020 10:26
--- NOTE | 2020-09-17 11:09 | NUR ---
RD ASSESSMENT & RECOMMENDATIONS SEE CARE ACTIVITY FOR COMPLETE ASSESSMENT DAILY ESTIMATED NEEDS: Needs based on Critical care/ 77kg 22-28 kcals/kg 6196-9810 total kcals 1.2-2 g protein/kg 92-154 g total protein 25-30 mL/kg 6940-9762 total fluid mLs NUTRITION DIAGNOSIS: Swallowing difficulty R/T respiratory failure as evidenced by orally intubated, w/ OGT feeding. CURRENT TF:Glucerna 1.5 @ 50ml/hr x 22 hrs PO DIET RECOMMENDATIONS: SCRAP PREPARER eval post extubation ENTERAL NUTRITION RECOMMENDATIONS: Glucerna 1.5@ 55ml/hr x 22 hrs (HOLD 1 HR BEFORE AND AFTER SYNTHROID) to provide 1210ml, 1815kcal, 100g prot, 918ml free water * Increase goal rate to 55ml/hr to better meet est needs * HOB over 30 degrees/ water flush per MD * Hold 1 hr before and after Synthroid ADDITIONAL RECOMMENDATIONS: * Per SNF; HT=68" CL=533uow (09/06/20) -> maintain calibrated bedscale wt * Add NISS- h/o DM, elev BGs, on TF (212, 178 163, 216) * Monitor lytes, replete as needed . .
--- NOTE | 2020-09-17 14:15 | NUR ---
NURSE NOTES: LATE ENTY: FAMILY HERE TO SEE BODY. PRAY WITH YARSANI FIGURE. BODY RELEASED TO MORTUARY.
--- NOTE | 2020-09-17 15:02 | Emergency Room Report ---
History of Present Illness General Chief Complaint: Dyspnea/Respdistress Source: EMS Present Illness Allergies: Coded Allergies: AMIODARONE (Verified Allergy, Unknown, 09/10/20) LEVOFLOXACIN (Verified Allergy, Unknown, 09/10/20) PENICILLINS (Verified Allergy, Unknown, 09/10/20) COVID-19 Screening Contact w/high risk pt: No Experienced COVID-19 symptoms?: Yes COVID-19 Testing performed EATING DISORDER PSYCHOLOGIST: Yes - no documentation COVID-19 Screening: Negative COVID-19 COVID-19 Testing Source: unknown Nursing Documentation-PMH Hx Cardiac Problems: Yes - sepsis, pneumonia, UTI, a-fib,hypothyroidism, CHF Hx Hypertension: Yes Hx Pacemaker: Yes - 2'tachy vaughn syndrome Hx Asthma: Yes Hx COPD: Yes Physical Exam Vital Signs Date Time Temp Pulse Resp B/P (MAP) Pulse Ox O2 Delivery O2 Flow Rate FiO2 09/13/20 07:00 60 18 129/57 (81) 100 09/13/20 07:30 40 09/13/20 08:00 98.5 09/13/20 08:00 Mechanical Ventilator Procedures Critical Care Time Critical Care Time i. I feel this is a highly complex case requiring extensive working including EKG/Rhythm strip, Xray/CT/US, Blood/urine lab work, repeat exams while in ED,and administration of strong opiates/narcotics for pain control, admission to hospital or close patient follow up. Total time: 30 min bedside evaluation and treatment excludes procedures (EKG). Reason for critical care: Cardiac arrest Possible complications: hypotension, hypertension, OR, shock, arrhythmias, metabolic acidosis, end organ damage, respiratory failure. Interventions: Chest compressions, ACLS, repeat Accu-Cheks, cardiac monitoring Course: I was called to the ICU for this CODE BLUE. Patient intubated last night. Also left-sided chest tube placed. Patient in asystole. Chest compressions started. After multiple rounds of medication patient remains in asystole. Prognosis poor. Resuscitative efforts terminated. Patient expires Consultations: nursing staff, EMS, family Performed by: Dr Mohan Tolerated well condition = j. because of unstable vital signs this patient had a condition that could potentially threaten life or limb. I feel this is a critical patient who required my full attention while patient was considered critical. Total Critical Care Time excluding procedures was greater than 35 minutes CPR/Code Blue CPR/Code Blue Narrative see code blue sheet for full narrative Medical Decision Making Diagnostic Impression: Primary Impression: Respiratory failure Additional Impressions: Elevated d-dimer Elevated troponin UTI (urinary tract infection) Pneumonia ER Course I was called to the ICU for this CODE BLUE. Patient intubated last night. Also left-sided chest tube placed. Patient in asystole. Chest compressions started. After multiple rounds of medication patient remains in asystole. Prognosis poor. Resuscitative efforts terminated. Patient expires Last Vital Signs Date Time Temp Pulse Resp B/P (MAP) Pulse Ox O2 Delivery O2 Flow Rate FiO2 09/17/20 10:15 15 34 71/11 (31) 63 09/17/20 08:00 Mechanical Ventilator Mechanical Ventilator 09/17/20 07:30 100 09/17/20 07:00 96.6 Status: worsened Disposition: Condition: Referrals: NON PHYSICIAN (PCP) Yoseph Mohan MD Sep 17, 2020 15:02
[2020-09-17] MEDS ORDERED: Cefepime HCl 1 GM in D5W 55 ML IVPB SCH (16:00)
--- NOTE | 2020-09-18 08:51 | Cardiology Report ---
APPROVED REPORT EXAM: Two-dimensional and M-mode echocardiogram with Doppler and color Doppler. INDICATION Shortness of breath M-Mode DIMENSIONS IVSd1.6 (0.7-1.1cm)Left Atrium (MM)4.0 (1.6-4.0cm) LVDd3.5 (3.5-5.6cm)Aortic Root3.0 (2.0-3.7cm) PWd1.0 (0.7-1.1cm)Aortic Cusp Exc.1.8 (1.5-2.0cm) IVSs2.0 cmEPSS0.8 (>1.0cm) LVDs2.3 (2.5-4.0cm) PWs1.5 cm <Conclusion> Technically difficult study due to poor acoustic windows. Study quality precludes accurate assessment of regional wall motion. Normal left ventricular chamber size, systolic function and wall motion. Left ventricular ejection fraction estimated to be 55 %. Mild left ventricular hypertrophy. Anterior Echo-free space, may be due to pericardial fat or effusion. All other cardiac chamber sizes are within normal limits. Focal aortic valve sclerosis with adequate cusp excursion. Thickened mitral valve leaflets with normal excursion. Mitral annulus and aortic root calcification. Pulmonic valve not well visualized. Normal tricuspid valve structure. Subcostal views not obtainable. A color flow and spectral Doppler study was performed and revealed: Trace aortic regurgitation. Mild mitral regurgitation. Mitral diastolic velocities suggest mild left ventricular diastolic dysfunction (Grade I). Mild tricuspid regurgitation. Tricuspid systolic velocities suggests peak right ventricular systolic pressure of 23 mmHg. Moderate pulmonic regurgitation present.
--- NOTE | 2020-09-19 13:34 | Discharge Summary ---
Discharge Summary Discharge Summary _ SUMMARY DATE OF ADMISSION: 09/10/2020 DATE OF EXPIRATION: 09/17/2020 REASON FOR ADMISSION: 89 years old male with past medical history of COPD, hypertension, heart failure, permanent pacemaker, presented for evaluation due to hypotension and respiratory distress. Paramedics found him hypoxic in the nursing facility saturating 80% , only improved to low 90s on nonrebreather mask. Systolic blood pressure was in the high 80s. Patient was not responsive. Upon evaluation in emergency department patient was hypoxic, hypotensive and not responsive. Laboratory work-up revealed leukocytosis WBC 15.6, stable hemoglobin and hematocrit. Lactic acid 1.9. BUN 36, creatinine 1.4. Glucose 235. Troponin 0.057, pro BNP 2107. Sodium 146, chloride 109. Urinalysis revealed pyuria, hematuria, few bacteria. Chest x-ray revealed left lower lobe hazy opacity likely representing a pleural effusion with adjacent atelectasis. Underlying infiltrate cannot be excluded. CK 1477. COVID-19 was negative. Patient was orally intubated for impending respiratory failure. Septic work-up initiated. Patient initially started on Levophed drip. Fluid challenge provided, patient pancultured and started on empiric antibiotic. Blood pressure improved , and Levophed subsequently was discontinued . Patient admitted to ICU for further management. CONSULTANTS: credit clerk pulmonary Dr. Mark ID specialist Dr. Cisse GI specialist Dr Garrison internal medicine Dr. Reyes [facility]SE: Patient admitted to ICU. Hemodynamic status was closely monitored . Ventilator support and pulmonary toilet provided. Patient was followed-up with chest x-ray and ABG. Lactic acid repeated 2.3, then 3.0. Repeated troponin negative. Echocardiogram revealed preserved ejection fraction. Volumes were closely monitored. DVT prophylaxis provided. Overall prognosis was guarded. Blood culture revealed Staphylococcus and Staph epidermidis likely contaminant. Sputum culture revealed Citrobacter and Marifer. Antibiotics provided as per ID specialist recommendation. Leukocytosis resolved. Nutritional support provided via NG tube. Strict aspiration precaution maintained. Hemoglobin and hematocrit were closely monitored with goal to keep hemoglobin above 7, remained at baseline. On 09/17 patient developed malfunctioning of endotracheal tube due to leak. Patient was reintubated. Chest x-ray postintubation showed left-sided pneumothorax. Patient subsequently undergone placement of chest tube which was connected to Pleur-evac. Patient demonstrated persistent hypotension. Telemetry showed paced rhythm. Hemodynamic status was closely monitored with goal to keep mean arterial blood pressure above 65. LUCAS RODRIGUEZ was called 09/17 due to asystole. ACLS protocol initiated. Despite all resuscitative efforts patient remained in asystole. Patient was pronounced at 10:22 AM on 09/17 . Cause of : cardiopulmonary arrest. FINAL DIAGNOSES: Sepsis with shock Acute hypoxemic respiratory failure,requiring intubation Aspiration pneumonia Malfunctioning of the endotracheal tube due to leak, s/p reintubation Left pneumothorax Status post chest tube placement Acute on chronic diastolic congestive heart failure Acute myocardial ischemia Pacemaker Dehydration Rhabdomyolysis Lactic acidosis- resolved Severe protein calorie malnutrition Parkinson disease Anemia I have been assigned to dictate discharge summary for this account. I was not involved in the patient's management. Brie Wright NP Sep 19, 2020 13:34
== END 2020-09-17 10:21 | disposition expired | DRG 870 ==
LOC: EDBD 14:28 → EMR 15:05 → ICU 15:20 → EDBEDREQ 15:55
PROC: 5A1955Z Respiratory Ventilation, Greater than 96 Consecutive Hours (ICD-10-PCS; principal; 2020-09-10)
PROC: 0BH17EZ Insertion of Endotracheal Airway into Trachea, Via Natural or Artificial Opening (ICD-10-PCS; principal; 2020-09-10)
PROC: B548ZZA Ultrasonography of Superior Vena Cava, Guidance (ICD-10-PCS; 2020-09-12)
PROC: 02HV33Z Insertion of Infusion Device into Superior Vena Cava, Percutaneous Approach (ICD-10-PCS; 2020-09-12)
PROC: 0B21XEZ Change Endotracheal Airway in Trachea, External Approach (ICD-10-PCS; 2020-09-17)
PROC: 0W9B30Z Drainage of Left Pleural Cavity with Drainage Device, Percutaneous Approach (ICD-10-PCS; 2020-09-17)
DX: A41.9 Sepsis, unspecified organism (principal); J69.0 Pneumonitis due to inhalation of food and vomit; E43 Unspecified severe protein-calorie malnutrition; R65.21 Severe sepsis with septic shock; I50.33 Acute on chronic diastolic (congestive) heart failure; J96.01 Acute respiratory failure with hypoxia; J93.0 Spontaneous tension pneumothorax; R40.20 Unspecified coma; K85.90 Acute pancreatitis without necrosis or infection, unspecified; I21.4 Non-ST elevation (NSTEMI) myocardial infarction; J44.0 Chronic obstructive pulmonary disease with (acute) lower respiratory infection; N39.0 Urinary tract infection, site not specified; T85.638A Leakage of other specified internal prosthetic devices, implants and grafts, initial encounter; E87.0 Hyperosmolality and hypernatremia; M62.82 Rhabdomyolysis; Z95.0 Presence of cardiac pacemaker; I25.10 Atherosclerotic heart disease of native coronary artery without angina pectoris; G20 Parkinson's disease; I48.91 Unspecified atrial fibrillation; Z68.25 Body mass index [BMI] 25.0-25.9, adult; D64.9 Anemia, unspecified; Z20.828 Contact with and (suspected) exposure to other viral communicable diseases; E86.0 Dehydration
CPT/HCPCS: 31500; 36415; 36569; 71045; 74018; 76937; 80053; 80202; 81003; 82550; 82553; 82728; 82803; 83605; 83615; 83690; 83735; 83880; 84100; 84484; 85025; 85379; 85610; 85730; 86140; 87040; 87070; 87081; 87086; 87181; 87205; 92950; 93005; 93306; 94002; 94003; 96365; 96367; 96368; 96375; 99291; J0171; J2250; J7030; J8499; U0002